=== PATIENT | female | born 1990 | race Caucasian/White ===

== ENCOUNTER 2018-10-08 09:57 | Observation (INO) | payer OTHER ==
[2018-10-08] MEDS ORDERED: SODIUM CHLORIDE 0.9% 2,000 ML IV STA (10:34)
[2018-10-08] MEDS ORDERED: ONDANSETRON 4 MG/2 ML VIAL IVP STA (10:34)
[2018-10-08] MEDS ORDERED: KETOROLAC 30 MG/ML 1 ML VIAL IVP STA (10:34)
[2018-10-08] MEDS ORDERED: ACETAMINOPHEN TAB 325 MG TAB PO STA (10:36)
--- NOTE | 2018-10-08 10:40 | ED ---
General Adult HPI <Mathew Patricio - Last Filed: 10/08/18 14:03> - General Source: patient, RN notes reviewed Mode of arrival: ambulatory Limitations: no limitations <Manohar Fuentes - Last Filed: 10/08/18 14:20> - General Chief complaint: Urogenital Stated complaint: urinary problem, poss flu Time Seen by Provider: 10/08/18 10:27 - History of Present Illness Initial comments: 28 show female presents emergency Department chief complaint of abdominal pain, fever, dysuria, body aches. Patient states she just does not feel well. Patient's concerned that she contracted influenza secondary to being at [facility] with her daughter for last 4 days. Patient states that she has a mild cough but from recommends a fever nausea vomiting and body aches. Patient states she has urinary frequency and dysuria and mild back pain. Patient had prior pyelonephritis. Patient denies any chance denies any vaginal bleeding or vaginal discharge. Patient is unable take recent Tylenol Motrin secondary to nausea. (Manohar Fuentes) - Related Data Home Medications Medication Instructions Recorded Confirmed No Known Home Medications 02/27/16 10/08/18 Allergies Allergy/AdvReac Type Severity Reaction Status Date / Time No Known Allergies Allergy Verified 10/08/18 10:46 Review of Systems ROS Other: All systems not noted in ROS Statement are negative. <Mathew Patricio - Last Filed: 10/08/18 14:03> ROS Other: All systems not noted in ROS Statement are negative. <Manohar Fuentes - Last Filed: 10/08/18 14:20> ROS Statement: Those systems with pertinent positive or pertinent negative responses have been documented in the HPI. 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 History of Any Multi-Drug Resistant Organisms: None Reported Past Surgical History: No Surgical Hx Reported Past Anesthesia/Blood Transfusion Reactions: No Reported Reaction Past Psychological History: No Psychological Hx Reported Smoking Status: Current every day smoker Past Alcohol Use History: None Reported Past Drug Use History: None Reported - Past Family History Father Family Medical History: No Reported History <Manohar Fuentes - Last Filed: 10/08/18 14:20> General Exam Limitations: no limitations General appearance: alert, in no apparent distress Head exam: Present: atraumatic, normocephalic, normal inspection Eye exam: Present: normal appearance, PERRL, EOMI. Absent: scleral icterus, conjunctival injection, periorbital swelling ENT exam: Present: normal exam, normal oropharynx, mucous membranes moist Neck exam: Present: normal inspection. Absent: tenderness, meningismus, lymphadenopathy Respiratory exam: Present: normal lung sounds bilaterally. Absent: respiratory distress, wheezes, rales, rhonchi, stridor Cardiovascular Exam: Present: normal rhythm, tachycardia, normal heart sounds. Absent: systolic murmur, diastolic murmur, rubs, gallop, clicks GI/Abdominal exam: Present: soft, tenderness, normal bowel sounds. Absent: distended, guarding, rebound, rigid Back exam: Present: CVA tenderness (R). Absent: CVA tenderness (L) <Manohar Fuentes - Last Filed: 10/08/18 14:20> Course Vital Signs 10/08/18 10/08/18 10/08/18 10:07 12:48 14:16 Temperature 101.9 F H 98.4 F Pulse Rate 113 H 75 Respiratory 18 20 Rate Blood Pressure 100/52 113/64 O2 Sat by Pulse 98 99 Oximetry Medical Decision Making - Lab Data Result diagrams: 10/08/18 10:48 10/08/18 10:48 <Mathew Patricio - Last Filed: 10/08/18 14:03> - Lab Data Result diagrams: 10/08/18 10:48 10/08/18 10:48 <Manohar Fuentes - Last Filed: 10/08/18 14:20> - Medical Decision Making Case was discussed with PA. Chart was reviewed. Case was discussed with Dr. Campbell, who will admit his patient (Mathew Patricio) 28-year-old female presented for abdominal pain nausea vomiting fever. Patient's found to have pyelonephritis on CT., Patient also has influenza A w ill be started on Tamiflu, Rocephin. (Manohar Fuentes) - Lab Data Lab Results 10/08/18 10/08/18 10/08/18 Range/Units 10:48 10:48 10:48 WBC 16.5 H (3.8-10.6) k/uL RBC 4.31 (3.80-5.40) m/uL Hgb 13.4 (11.4-16.0) gm/dL Hct 39.1 (34.0-46.0) % MCV 90.6 (80.0-100.0) fL MCH 31.0 (25.0-35.0) pg MCHC 34.3 (31.0-37.0) g/dL RDW 12.1 (11.5-15.5) % Plt Count 255 (150-450) k/uL Neutrophils % 82 % Lymphocytes % 9 % Monocytes % 8 % Eosinophils % 1 % Basophils % 0 % Neutrophils # 13.5 H (1.3-7.7) k/uL Lymphocytes # 1.4 (1.0-4.8) k/uL Monocytes # 1.3 H (0-1.0) k/uL Eosinophils # 0.1 (0-0.7) k/uL Basophils # 0.0 (0-0.2) k/uL Sodium 137 (137-145) mmol/L Potassium 3.6 (3.5-5.1) mmol/L Chloride 102 (98-107) mmol/L Carbon Dioxide 24 (22-30) mmol/L Anion Gap 11 mmol/L BUN 12 (7-17) mg/dL Creatinine 0.56 (0.52-1.04) mg/dL Est GFR (CKD-EPI)AfAm >90 (>60 ml/min/1.73 sqM) Est GFR (CKD-EPI)NonAf >90 (>60 ml/min/1.73 sqM) Glucose 105 H (74-99) mg/dL Plasma Lactic Acid Carter (0.7-2.0) mmol/L Calcium 9.0 (8.4-10.2) mg/dL Total Bilirubin 1.3 (0.2-1.3) mg/dL AST 23 (14-36) U/L ALT 25 (9-52) U/L Alkaline Phosphatase 60 (38-126) U/L Total Protein 7.3 (6.3-8.2) g/dL Albumin 4.2 (3.5-5.0) g/dL Lipase 31 (23-300) U/L Urine Color Urine Appearance (Clear) Urine pH (5.0-8.0) Ur Specific [place] (1.001-1.035) Urine Protein (Negative) Urine Glucose (UA) (Negative) Urine Ketones (Negative) Urine Blood (Negative) Urine Nitrite (Negative) Urine Bilirubin (Negative) Urine Urobilinogen (<2.0) mg/dL Ur Leukocyte Esterase (Negative) Urine RBC (0-5) /hpf Urine WBC (0-5) /hpf Ur Squamous Epith Cells (0-4) /hpf Urine Bacteria (None) /hpf Urine Mucus (None) /hpf Urine HCG, Qual Not Detected (Not Detectd) Influenza Type A RNA (Not Detectd) Influenza Type B (PCR) (Not Detectd) 10/08/18 10/08/18 10/08/18 Range/Units 10:48 10:48 12:05 WBC (3.8-10.6) k/uL RBC (3.80-5.40) m/uL Hgb (11.4-16.0) gm/dL Hct (34.0-46.0) % MCV (80.0-100.0) fL MCH (25.0-35.0) pg MCHC (31.0-37.0) g/dL RDW (11.5-15.5) % Plt Count (150-450) k/uL Neutrophils % % Lymphocytes % % Monocytes % % Eosinophils % % Basophils % % Neutrophils # (1.3-7.7) k/uL Lymphocytes # (1.0-4.8) k/uL Monocytes # (0-1.0) k/uL Eosinophils # (0-0.7) k/uL Basophils # (0-0.2) k/uL Sodium (137-145) mmol/L Potassium (3.5-5.1) mmol/L Chloride (98-107) mmol/L Carbon Dioxide (22-30) mmol/L Anion Gap mmol/L BUN (7-17) mg/dL Creatinine (0.52-1.04) mg/dL Est GFR (CKD-EPI)AfAm (>60 ml/min/1.73 sqM) Est GFR (CKD-EPI)NonAf (>60 ml/min/1.73 sqM) Glucose (74-99) mg/dL Plasma Lactic Acid Carter 1.0 (0.7-2.0) mmol/L Calcium (8.4-10.2) mg/dL Total Bilirubin (0.2-1.3) mg/dL AST (14-36) U/L ALT (9-52) U/L Alkaline Phosphatase (38-126) U/L Total Protein (6.3-8.2) g/dL Albumin (3.5-5.0) g/dL Lipase (23-300) U/L Urine Color Yellow Urine Appearance Cloudy H (Clear) Urine pH 6.0 (5.0-8.0) Ur Specific [place] 1.023 (1.001-1.035) Urine Protein 1+ H (Negative) Urine Glucose (UA) Negative (Negative) Urine Ketones 3+ H (Negative) Urine Blood Moderate H (Negative) Urine Nitrite Negative (Negative) Urine Bilirubin Negative (Negative) Urine Urobilinogen 2.0 (<2.0) mg/dL Ur Leukocyte Esterase Moderate H (Negative) Urine RBC 8 H (0-5) /hpf Urine WBC 15 H (0-5) /hpf Ur Squamous Epith Cells 14 H (0-4) /hpf Urine Bacteria Few H (None) /hpf Urine Mucus Many H (None) /hpf Urine HCG, Qual (Not Detectd) Influenza Type A RNA Detected H (Not Detectd) Influenza Type B (PCR) Not Detected (Not Detectd) Disposition <Mathew Patricio - Last Filed: 10/08/18 14:03> <Manohar Fuentes - Last Filed: 10/08/18 14:20> Clinical Impression: Pyelonephritis, Influenza Disposition: ADMITTED IP TO THIS HOSP Condition: Fair
[2018-10-08 11:31] LABS: Basophils % (A) 0 %; Eosinophils # (A) 0.1 k/uL (0-0.7); Eosinophils % (A) 1 %; HCT 39.1 % (34.0-46.0); HGB 13.4 gm/dL (11.4-16.0); Lymphocytes # (A) 1.4 k/uL (1.0-4.8); Lymphocytes % (A) 9 %; MCHC 34.3 g/dL (31.0-37.0); MCV 90.6 fL (80.0-100.0); Mean Platelet Volume 6.4; Monocytes # (A) 1.3 k/uL (0-1.0); Monocytes % (A) 8 %; Neutrophils # (A) 13.5 k/uL (1.3-7.7); Neutrophils % (A) 82 %; Platelet Count 255 k/uL (150-450); RBC 4.31 m/uL (3.80-5.40); RDW 12.1 % (11.5-15.5); WBC 16.5 k/uL (3.8-10.6)
[2018-10-08 11:56] LABS: ALT 25 U/L (9-52); AST 23 U/L (14-36); Albumin 4.2 g/dL (3.5-5.0); Alkaline Phosphatase 60 U/L (38-126); Anion Gap 11 mmol/L; Blood Urea Nitrogen 12 mg/dL (7-17); Carbon Dioxide 24 mmol/L (22-30); Chloride 102 mmol/L (98-107); Glucose 105 mg/dL (74-99); Lipase 31 U/L (23-300); Potassium 3.6 mmol/L (3.5-5.1); Sodium 137 mmol/L (137-145); Total Bilirubin 1.3 mg/dL (0.2-1.3); Total Protein 7.3 g/dL (6.3-8.2)
[2018-10-08 11:57] LABS: Appearance,Urine Cloudy (Clear); Bacteria,Urine Few /hpf; Bilirubin,Urine Negative (Negative); Blood,Urine Moderate (Negative); Color,Urine Yellow; Glucose,Urine (UA) Negative (Negative); Ketones,Urine 3+ (Negative); Leukocyte Esterase,Urine Moderate (Negative); Mucus,Urine Many /hpf; Nitrite,Urine Negative (Negative); Protein,Urine 1+ (Negative); RBC,Urine 8 /hpf (0-5); Specific Gravity,Urine 1.023 (1.001-1.035); Squamous Epithelial Cell,Urine 14 /hpf (0-4)
--- NOTE | 2018-10-08 12:46 | CT ---
EXAMINATION TYPE: CT abdomen pelvis w con DATE OF EXAM: 10/08/2018 HISTORY: painful urination, fever CT DLP: 859.2mGycm Automated Exposure Control for Dose Reduction was Utilized. CONTRAST: CT scan of the abdomen and pelvis is performed without oral but with IV Contrast, patient injected wi th 100 mL of Isovue 300. COMPARISON: None. FINDINGS: LUNG BASES: No significant abnormality is appreciated. LIVER/GB: No significant abnormality is appreciated. PANCREAS: No significant abnormality is seen. SPLEEN: Splenomegaly measuring 13.9 cm long axis coronal image 43 is noted. ADRENALS: No significant abnormality is seen. KIDNEYS: There is symmetric cortical medullary uptake and excretion from both kidneys without hydrone phrosis identified bilaterally. There is fullness of left renal pelvis without calyceal dilatation choudhury ggesting extrarenal pelvis there are a few wedge-shaped areas of nonenhancement for reference anterio rly lower pole level delayed axial image 43 and anterior medially upper to mid pole level axial image 29 also posterior laterally upper to mid pole level axial image 33. Findings are consistent with mul tifocal areas of pyelonephritis involving the left kidney. No suspicious nonenhanced numerous striati ons in the right kidney are present. Bladder is poorly distended without suspicious wall thickening. 2 mm calcific focus axial image 89 is presumed between bladder and and vagina, intraluminal bladder c alculus felt less likely. There are few scattered pelvic phleboliths noted. BOWEL: Incidental normal-appearing appendix from cecum in the right upper pelvis. UTERUS/ADNEXA: Anteverted uterus is seen. LYMPH NODES: No greater than 1cm abdominal or pelvic lymph nodes are appreciated. OSSEOUS STRUCTURES: No significant abnormality is seen. OTHER: No significant additional abnormality is seen. IMPRESSION: Multifocal left-sided pyelonephritis identified on CT. Splenomegaly also noted.
[2018-10-08] MEDS ORDERED: OSELTAMIVIR 75 MG CAP PO STA (13:15)
[2018-10-08] MEDS ORDERED: NALOXONE 0.4 MG/ML 1 ML VIAL IV PRN (13:16)
[2018-10-08] MEDS: SODIUM CHLORIDE 0.9% 1,000 ML IV SCH ×2 (14:08→21:36)
[2018-10-08 15:28] VITALS: BMI 28.3
[2018-10-08] MEDS: KETOROLAC 30 MG/ML 1 ML VIAL IVP PRN ×2 (17:23→23:16)
[2018-10-08] MEDS: FAMOTIDINE 20 MG TAB PO SCH (17:58)
[2018-10-08] MEDS: OSELTAMIVIR 75 MG CAP PO SCH (20:48)
[2018-10-09] MEDS: FAMOTIDINE 20 MG TAB PO SCH ×2 (07:32→20:46)
[2018-10-09] MEDS: OSELTAMIVIR 75 MG CAP PO SCH ×2 (09:29→21:27)
[2018-10-09] MEDS: SODIUM CHLORIDE 0.9% 1,000 ML IV SCH ×2 (10:49→19:31)
[2018-10-09] MEDS ORDERED: LEVOFLOXACIN 500 MG TAB PO SCH (13:00)
[2018-10-09] MEDS: ACETAMINOPHEN TAB 325 MG TAB PO PRN ×2 (14:09→20:46)
[2018-10-09] MEDS: KETOROLAC 30 MG/ML 1 ML VIAL IVP PRN (18:20)
[2018-10-09 20:32] VITALS: RESP 16
[2018-10-10 01:27] VITALS: PULSE 83
[2018-10-10] MEDS: SODIUM CHLORIDE 0.9% 1,000 ML IV SCH (03:10)
[2018-10-10] MEDS: OSELTAMIVIR 75 MG CAP PO SCH (07:08)
[2018-10-10] MEDS: FAMOTIDINE 20 MG TAB PO SCH (07:08)
[2018-10-10 07:24] VITALS: BP 110/72; TEMP 98.1
--- NOTE | 2018-10-10 21:41 | HP ---
HISTORY AND PHYSICAL CHIEF COMPLAINT: Flank pain. HISTORY OF PRESENT ILLNESS: This 28-year-old white female came to the emergency room for the first time with a history of flank pain and was diagnosed as having pyelonephritis. She also was positive for flu. REVIEW OF SYSTEMS: She has had no nausea, vomiting, chest pain, murmurs, fever, abdominal pain, melena, hematochezia, diabetes, etc. Past medical history, family history, personal and social histories were otherwise all unremarkable and noncontributory. On physical exam, she did have a temperature of a 100.4, blood pressure is 110/68 with a pulse of 90, respirations of 34, and she is afebrile. In general, she appeared to be well developed, well nourished and slightly overweight. Skin color is normal. Skin is warm, dry. Lymph nodes not enlarged. Head, ears, eyes, nose, mouth, and throat were normal. Neck veins not distended. Thyroid is not enlarged. Chest is clear. Cardiac exam is normal. Abdomen is soft, nontender. Extremities are normal. She is a little bit tender in the left flank. IMPRESSION: 1. Pyelonephritis. 2. . PLAN: 1. Bed rest. 2. IV fluids. 3. Tamiflu. 4. IV antibiotics. MMODL / IJN: [id number] /
--- NOTE | 2018-10-10 21:56 | PN ---
PROGRESS NOTE DATE OF SERVICE: 10/09/2018. CHIEF COMPLAINT: Pyelonephritis and influenza. HISTORY OF PRESENT ILLNESS: This lady is still having quite a bit of left upper quadrant left flank pain. She has not been nauseated, but she does not have an appetite. PHYSICAL EXAM: Chest is clear. The cardiac exam is normal and she is tender in the left side of the abdomen and in the left flank. IMPRESSION: 1. Persistent pyelonephritis. 2. Influenza. PLAN: Continue with IV fluids and antibiotics and will add Levaquin. She is still running a temp and she is somewhat sweaty. MMODL / IJN: [id number] /
--- NOTE | 2018-10-11 07:51 | DS ---
DISCHARGE SUMMARY CHIEF COMPLAINT: Pyelonephritis and influenza. HISTORY OF PRESENT ILLNESS AND PHYSICAL EXAM: Details of this lady's history and physical can be found in the initial workup. LABORATORY STUDIES: While she was in the hospital, she had laboratory studies, details of which can be found in the laboratory section of her chart. COURSE IN HOSPITAL: After admission, she was placed on bedrest and started on intravenous fluids and IV antibiotics. Temperature came down slowly and she was doing well enough to go home on the . She will go home on usual diet and activity and antibiotics as well as Tamiflu and be seen in the office in a few days. FINAL DIAGNOSIS: 1. Pyelonephritis. 2. Influenza. OPERATIONS: None. CONSULTATION: None. She is improved. MMODL / IJN: [id number] /
== END 2018-10-10 11:48 | disposition home or self-care (01) ==
LOC: EC 09:57 → 4MS4W 14:02 → INTOOBSV 14:02 → 4SSUR 14:05 → UNDODISIN 10-10 11:48
PROVIDERS: ADMIT Family Medicine; ATTEND Family Medicine
DX: N12 Tubulo-interstitial nephritis, not specified as acute or chronic (principal); J10.89 Influenza due to other identified influenza virus with other manifestations; J10.1 Influenza due to other identified influenza virus with other respiratory manifestations; F17.210 Nicotine dependence, cigarettes, uncomplicated; E66.3 Overweight; Z68.28 Body mass index [BMI] 28.0-28.9, adult; Z86.19 Personal history of other infectious and parasitic diseases
CPT/HCPCS: 96376 ×2; 96366 ×3; 96361; 96365; 96375; 99285; 36415; 80053; 83605; 83690; 85025; 81001; 81025; 87040; 87086; 87502; 74177; G0378 ×3; J2405; J0696 ×4; J1885 ×2; Q9967; 96374

== ENCOUNTER 2019-06-20 15:20 | Observation (INO) | payer OTHER ==
[2019-06-20] MEDS ORDERED: SODIUM CHLORIDE 0.9% 1,000 ML IV STA ×2 (15:42→18:45)
[2019-06-20] MEDS ORDERED: KETOROLAC 30 MG/ML 1 ML VIAL IVP STA (15:42)
[2019-06-20] MEDS ORDERED: ONDANSETRON 4 MG/2 ML VIAL IVP STA ×2 (15:42→18:35)
--- NOTE | 2019-06-20 15:45 | ED ---
General Adult HPI - General Chief complaint: Back Pain/Injury Stated complaint: Vomitting/Lower back pain Time Seen by Provider: 06/20/19 15:31 Source: patient, RN notes reviewed Mode of arrival: ambulatory Limitations: no limitations - History of Present Illness Initial comments: 28-year-old female with a past medical history pyelonephritis, HSV presents to the emergency department for a chief complaint of vomiting. Patient states that she began vomiting last night around 9:30. States she has vomited several times since and is now dry heaving as she is not able to keep down fluids. Patient states she has low back pain as well. States this feels like pyelonephritis she has had in the past. She denies abdominal pain. She denies fevers or chills. She does admit to dysuria.Patient has no other complaints at this time including shortness of breath, chest pain, abdominal pain, headache, or visual changes. - Related Data Home Medications Medication Instructions Recorded Confirmed No Known Home Medications 06/20/19 06/20/19 Allergies Allergy/AdvReac Type Severity Reaction Status Date / Time No Known Allergies Allergy Verified 06/20/19 19:26 Review of Systems ROS Statement: Those systems with pertinent positive or pertinent negative responses have been documented in the HPI. ROS Other: All systems not noted in ROS Statement are negative. 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 History of Any Multi-Drug Resistant Organisms: None Reported Past Surgical History: No Surgical Hx Reported Past Anesthesia/Blood Transfusion Reactions: No Reported Reaction Past Psychological History: No Psychological Hx Reported Smoking Status: Current every day smoker Past Alcohol Use History: None Reported Past Drug Use History: None Reported - Past Family History Father Family Medical History: No Reported History Mother Family Medical History: No Reported History General Exam Limitations: no limitations General appearance: alert, in no apparent distress Head exam: Present: atraumatic, normocephalic, normal inspection Eye exam: Present: normal appearance, PERRL, EOMI. Absent: scleral icterus, conjunctival injection, periorbital swelling ENT exam: Present: normal exam, mucous membranes moist Neck exam: Present: normal inspection, full ROM. Absent: tenderness, meningismus, lymphadenopathy Respiratory exam: Present: normal lung sounds bilaterally. Absent: respiratory distress, wheezes, rales, rhonchi, stridor Cardiovascular Exam: Present: regular rate, normal rhythm, normal heart sounds. Absent: systolic murmur, diastolic murmur, rubs, gallop, clicks GI/Abdominal exam: Present: soft, normal bowel sounds. Absent: distended, tenderness, guarding, rebound, rigid External exam: Present: normal external exam. Absent: erythema, swelling, lacerations, ecchymosis Speculum exam: Present: normal speculum exam, vaginal discharge (small amount of liekly physiologic discharge). Absent: erythema, cervical discharge, vaginal bleeding, foreign body, tissue, laceration By manual exam: Present: normal by manual exam. Absent: cervical motion tenderness (neg chandelier), adnexal tenderness, adnexal mass, uterine enlargement, uterine tenderness Back exam: Absent: CVA tenderness (R), CVA tenderness (L) Course Vital Signs 06/20/19 06/20/19 06/20/19 15:23 18:36 19:55 Temperature 98.9 F 98.9 F Pulse Rate 106 H 102 H 97 Respiratory 18 16 16 Rate Blood Pressure 139/68 114/83 130/74 O2 Sat by Pulse 96 100 100 Oximetry Medical Decision Making - Medical Decision Making Vitals are stable. Patient mildly tachycardic possibly secondary to dehydration. Patient is afebrile. Patient is experiencing low back pain as well as right lower quadrant pain. She is experiencing vomiting as well. She denies diarrhea. She is mildly tender in the right lower quadrant. Pelvic exam is unremarkable. Patient denies IV drug use. CBC shows a white blood cell count of 28. CMP does show a lactic acidosis which could be secondary to dehydration. CMP also shows an anion gap of 21 which is likely secondary to starvation ketosis as she does have evidence of dehydration and 3+ ketones in the urine. Patient was given [address] abdomen and pelvis shows a correlate for enteritis with some wall thickening in the small bowel loops. This could possibly be cause of patient's pain. However patient continues to experience pain after multiple analgesics. She is also nauseous after Zofran. Given intractable pain as well as leukocytosis and lactic acidosis patient will be admitted for further monitoring. Trichomonas, gonorrhea, chlamydia pending. Case was discussed with Dr Campbell who accepted this admission - Lab Data Result diagrams: 06/20/19 15:55 06/20/19 15:55 Lab Results 06/20/19 06/20/19 06/20/19 Range/Units 15:35 15:35 15:55 WBC (3.8-10.6) k/uL RBC (3.80-5.40) m/uL Hgb (11.4-16.0) gm/dL Hct (34.0-46.0) % MCV (80.0-100.0) fL MCH (25.0-35.0) pg MCHC (31.0-37.0) g/dL RDW (11.5-15.5) % Plt Count (150-450) k/uL Neutrophils % % Lymphocytes % % Monocytes % % Eosinophils % % Basophils % % Neutrophils # (1.3-7.7) k/uL Lymphocytes # (1.0-4.8) k/uL Monocytes # (0-1.0) k/uL Eosinophils # (0-0.7) k/uL Basophils # (0-0.2) k/uL Manual Slide Review RBC Morphology Sodium 141 (137-145) mmol/L Potassium 5.0 (3.5-5.1) mmol/L Chloride 104 (98-107) mmol/L Carbon Dioxide 16 L (22-30) mmol/L Anion Gap 21 mmol/L BUN 17 (7-17) mg/dL Creatinine 0.78 (0.52-1.04) mg/dL Est GFR (CKD-EPI)AfAm >90 (>60 ml/min/1.73 sqM) Est GFR (CKD-EPI)NonAf >90 (>60 ml/min/1.73 sqM) Glucose 111 H (74-99) mg/dL Lactic Ac Sepsis Rflx Plasma Lactic Acid Carter (0.7-2.0) mmol/L Calcium 10.1 (8.4-10.2) mg/dL Total Bilirubin 1.7 H (0.2-1.3) mg/dL AST 43 H (14-36) U/L ALT 21 (4-34) U/L Alkaline Phosphatase 88 (38-126) U/L Total Protein 9.0 H (6.3-8.2) g/dL Albumin 5.2 H (3.5-5.0) g/dL Amylase 60 (30-110) U/L Lipase 18 L (23-300) U/L Urine Color Yellow Urine Appearance Clear (Clear) Urine pH 5.0 (5.0-8.0) Ur Specific [place] 1.020 (1.001-1.035) Urine Protein Trace H (Negative) Urine Glucose (UA) Negative (Negative) Urine Ketones 3+ H (Negative) Urine Blood Trace H (Negative) Urine Nitrite Negative (Negative) Urine Bilirubin Negative (Negative) Urine Urobilinogen <2.0 (<2.0) mg/dL Ur Leukocyte Esterase Negative (Negative) Urine RBC <1 (0-5) /hpf Urine WBC <1 (0-5) /hpf Ur Squamous Epith Cells 1 (0-4) /hpf Hyaline Casts 1 (0-2) /lpf Urine Mucus Rare H (None) /hpf Urine HCG, Qual Not Detected (Not Detectd) Trichomonas Ag (Rapid) (Negative) 06/20/19 06/20/19 06/20/19 Range/Units 15:55 15:55 17:13 WBC 28.0 H (3.8-10.6) k/uL RBC 4.81 (3.80-5.40) m/uL Hgb 15.6 (11.4-16.0) gm/dL Hct 44.2 (34.0-46.0) % MCV 91.9 (80.0-100.0) fL MCH 32.3 (25.0-35.0) pg MCHC 35.2 (31.0-37.0) g/dL RDW 11.9 (11.5-15.5) % Plt Count 386 (150-450) k/uL Neutrophils % 92 % Lymphocytes % 4 % Monocytes % 2 % Eosinophils % 1 % Basophils % 0 % Neutrophils # 25.9 H (1.3-7.7) k/uL Lymphocytes # 1.1 (1.0-4.8) k/uL Monocytes # 0.6 (0-1.0) k/uL Eosinophils # 0.4 (0-0.7) k/uL Basophils # 0.0 (0-0.2) k/uL Manual Slide Review Performed RBC Morphology Normal Sodium (137-145) mmol/L Potassium (3.5-5.1) mmol/L Chloride (98-107) mmol/L Carbon Dioxide (22-30) mmol/L Anion Gap mmol/L BUN (7-17) mg/dL Creatinine (0.52-1.04) mg/dL Est GFR (CKD-EPI)AfAm (>60 ml/min/1.73 sqM) Est GFR (CKD-EPI)NonAf (>60 ml/min/1.73 sqM) Glucose (74-99) mg/dL Lactic Ac Sepsis Rflx Y Plasma Lactic Acid Carter 3.7 H* (0.7-2.0) mmol/L Calcium (8.4-10.2) mg/dL Total Bilirubin (0.2-1.3) mg/dL AST (14-36) U/L ALT (4-34) U/L Alkaline Phosphatase (38-126) U/L Total Protein (6.3-8.2) g/dL Albumin (3.5-5.0) g/dL Amylase (30-110) U/L Lipase (23-300) U/L Urine Color Urine Appearance (Clear) Urine pH (5.0-8.0) Ur Specific [place] (1.001-1.035) Urine Protein (Negative) Urine Glucose (UA) (Negative) Urine Ketones (Negative) Urine Blood (Negative) Urine Nitrite (Negative) Urine Bilirubin (Negative) Urine Urobilinogen (<2.0) mg/dL Ur Leukocyte Esterase (Negative) Urine RBC (0-5) /hpf Urine WBC (0-5) /hpf Ur Squamous Epith Cells (0-4) /hpf Hyaline Casts (0-2) /lpf Urine Mucus (None) /hpf Urine HCG, Qual (Not Detectd) Trichomonas Ag (Rapid) (Negative) 06/20/19 Range/Units 18:50 WBC (3.8-10.6) k/uL RBC (3.80-5.40) m/uL Hgb (11.4-16.0) gm/dL Hct (34.0-46.0) % MCV (80.0-100.0) fL MCH (25.0-35.0) pg MCHC (31.0-37.0) g/dL RDW (11.5-15.5) % Plt Count (150-450) k/uL Neutrophils % % Lymphocytes % % Monocytes % % Eosinophils % % Basophils % % Neutrophils # (1.3-7.7) k/uL Lymphocytes # (1.0-4.8) k/uL Monocytes # (0-1.0) k/uL Eosinophils # (0-0.7) k/uL Basophils # (0-0.2) k/uL Manual Slide Review RBC Morphology Sodium (137-145) mmol/L Potassium (3.5-5.1) mmol/L Chloride (98-107) mmol/L Carbon Dioxide (22-30) mmol/L Anion Gap mmol/L BUN (7-17) mg/dL Creatinine (0.52-1.04) mg/dL Est GFR (CKD-EPI)AfAm (>60 ml/min/1.73 sqM) Est GFR (CKD-EPI)NonAf (>60 ml/min/1.73 sqM) Glucose (74-99) mg/dL Lactic Ac Sepsis Rflx Plasma Lactic Acid Carter (0.7-2.0) mmol/L Calcium (8.4-10.2) mg/dL Total Bilirubin (0.2-1.3) mg/dL AST (14-36) U/L ALT (4-34) U/L Alkaline Phosphatase (38-126) U/L Total Protein (6.3-8.2) g/dL Albumin (3.5-5.0) g/dL Amylase (30-110) U/L Lipase (23-300) U/L Urine Color Urine Appearance (Clear) Urine pH (5.0-8.0) Ur Specific [place] (1.001-1.035) Urine Protein (Negative) Urine Glucose (UA) (Negative) Urine Ketones (Negative) Urine Blood (Negative) Urine Nitrite (Negative) Urine Bilirubin (Negative) Urine Urobilinogen (<2.0) mg/dL Ur Leukocyte Esterase (Negative) Urine RBC (0-5) /hpf Urine WBC (0-5) /hpf Ur Squamous Epith Cells (0-4) /hpf Hyaline Casts (0-2) /lpf Urine Mucus (None) /hpf Urine HCG, Qual (Not Detectd) Trichomonas Ag (Rapid) Negative (Negative) Disposition Clinical Impression: Leukocytosis, Back pain, Vomiting Disposition: ADMITTED IP TO THIS [facility] Condition: Fair Is patient prescribed a controlled substance at d/c from ED?: No Time of Disposition: 19:17
[2019-06-20 15:55] LABS: Appearance,Urine Clear (Clear); Bilirubin,Urine Negative (Negative); Blood,Urine Trace (Negative); Color,Urine Yellow; Glucose,Urine (UA) Negative (Negative); Hyaline Casts,Urine 1 /lpf (0-2); Ketones,Urine 3+ (Negative); Leukocyte Esterase,Urine Negative (Negative); Mucus,Urine Rare /hpf; Nitrite,Urine Negative (Negative); Protein,Urine Trace (Negative); RBC,Urine <1 /hpf (0-5); Squamous Epithelial Cell,Urine 1 /hpf (0-4); Urobilinogen,Urine <2.0 mg/dL (<2.0); WBC,Urine <1 /hpf (0-5)
[2019-06-20 16:22] LABS: Basophils % (A) 0 %; Eosinophils # (A) 0.4 k/uL (0-0.7); Eosinophils % (A) 1 %; HCT 44.2 % (34.0-46.0); HGB 15.6 gm/dL (11.4-16.0); Lymphocytes # (A) 1.1 k/uL (1.0-4.8); Lymphocytes % (A) 4 %; MCH 32.3 pg (25.0-35.0); MCHC 35.2 g/dL (31.0-37.0); MCV 91.9 fL (80.0-100.0); Mean Platelet Volume 8.1; Monocytes # (A) 0.6 k/uL (0-1.0); Monocytes % (A) 2 %; Neutrophils # (A) 25.9 k/uL (1.3-7.7); Neutrophils % (A) 92 %; Platelet Count 386 k/uL (150-450); RBC 4.81 m/uL (3.80-5.40); RDW 11.9 % (11.5-15.5)
[2019-06-20 16:43] LABS: ALT 21 U/L (4-34); AST 43 U/L (14-36); African American GFR (CKD) >90 (>60 ml/min/1.73 sqM); Albumin 5.2 g/dL (3.5-5.0); Alkaline Phosphatase 88 U/L (38-126); Amylase 60 U/L (30-110); Anion Gap 21 mmol/L; Blood Urea Nitrogen 17 mg/dL (7-17); Calcium 10.1 mg/dL (8.4-10.2); Carbon Dioxide 16 mmol/L (22-30); Chloride 104 mmol/L (98-107); Glucose 111 mg/dL (74-99); Non-African American GFR(CKD) >90 (>60 ml/min/1.73 sqM); Sodium 141 mmol/L (137-145); Total Bilirubin 1.7 mg/dL (0.2-1.3)
--- NOTE | 2019-06-20 17:51 | XR ---
EXAMINATION TYPE: XR chest 2V DATE OF EXAM: 06/20/2019 COMPARISON: NONE HISTORY: Leukocytosis, pain and vomiting TECHNIQUE: Frontal and lateral views of the chest are obtained. FINDINGS: There is no focal air space opacity, pleural effusion, or pneumothorax seen. The cardiac silhouette size is within normal limits. The osseous structures are intact. IMPRESSION: No acute cardiopulmonary process.
[2019-06-20] MEDS ORDERED: MORPHINE SULFATE 4 MG/ML SYRINGE IVP STA (18:35)
--- NOTE | 2019-06-20 18:39 | CT ---
EXAMINATION TYPE: CT abdomen pelvis w con DATE OF EXAM: 06/20/2019 COMPARISON: CT 10/08/2018 HISTORY: Nausea, vomiting, and right lower quadrant abdominal pain. CT DLP: 830.5 mGycm Automated exposure control for dose reduction was used. TECHNIQUE: Helical acquisition of images from the lung bases through the pelvis have been completed. CONTRAST: Performed without Oral Contrast and with IV Contrast, patient injected with 100ml mL of Isovue 300. FINDINGS: Small umbilical hernia contains fat. LUNG BASES: No significant abnormality is appreciated. AORTA: No significant abnormality is appreciated. LIVER/GB: Liver shows low attenuation likely due to hepatic steatosis, gallbladder are unremarkable. PANCREAS: No significant abnormality is seen. SPLEEN: No significant abnormality is seen. ADRENALS: No significant abnormality is seen. KIDNEYS: No significant abnormality is seen. REPRODUCTIVE ORGANS: No significant abnormality is seen BOWEL: Small bowel loops show some wall thickening. No evident appendicitis. FREE AIR: No Free Air visible. ASCITES: None visible. PELVIC ADENOPATHY: None visualized. RETROPERITONEAL ADENOPATHY: No Retroperitoneal Adenopathy visible. URINARY BLADDER: No significant abnormality is seen. OSSEOUS STRUCTURES: No significant abnormality is seen. IMPRESSION: CORRELATE FOR ENTERITIS.
[2019-06-20] MEDS ORDERED: cefTRIAXone IN SWFI 1,000 MG/10 ML SYRINGE IVP STA (19:03)
[2019-06-20] MEDS ORDERED: NALOXONE 0.4 MG/ML 1 ML VIAL IV PRN (19:05)
[2019-06-20] MEDS ORDERED: FAMOTIDINE 20 MG/2 ML VIAL IV STA (20:42)
[2019-06-20] MEDS: SODIUM CHLORIDE 0.9% 1,000 ML IV SCH (20:46)
[2019-06-20] MEDS: MORPHINE SULFATE 4 MG/ML SYRINGE IVP PRN (21:14)
[2019-06-21] MEDS: KETOROLAC 30 MG/ML 1 ML VIAL IVP PRN ×2 (00:54→16:55)
[2019-06-21] MEDS: MORPHINE SULFATE 4 MG/ML SYRINGE IVP PRN ×4 (02:01→19:22)
[2019-06-21] MEDS: SODIUM CHLORIDE 0.9% 1,000 ML IV SCH ×3 (03:16→20:28)
[2019-06-21] MEDS: ONDANSETRON 4 MG/2 ML VIAL IVP PRN ×2 (07:50→19:22)
[2019-06-21] MEDS: BENZOCAINE/MENTHOL LOZENG 1 EACH LOZENGE MUCOUS MEM PRN ×3 (09:43→16:55)
--- NOTE | 2019-06-21 16:45 | PN ---
PROGRESS NOTE DATE OF SERVICE: 06/21/2019 CHIEF COMPLAINT: Abdominal pain. HISTORY OF PRESENT ILLNESS: This lady is doing better. Pain is subsiding. She has had no vomiting. PHYSICAL EXAMINATION: Chest is clear. Cardiac exam is normal. Abdomen is soft and nontender without masses. Flanks are nontender. IMPRESSION: Abdominal and back pain with leukocytosis. PLAN: Continue with IV fluids and antibiotics and continue monitoring her symptoms. MMODL / IJN: [id number] /
--- NOTE | 2019-06-21 16:45 | HP ---
HISTORY AND PHYSICAL . CHIEF COMPLAINT: Abdominal pain with vomiting and low back pain. HISTORY OF PRESENT ILLNESS: This is the first known admission for this 28-year-old white female. She has a history of frequent urinary tract infections. About a day or so before coming to the emergency room, she developed fairly sudden onset of abdominal pain and severe low back pain. She had no frequency, urgency, dysuria, hematuria, incontinence, etc. She grew steadily worse and then developed nausea and vomiting and generalized weakness. She vomited numerous times and forcefully which resulted in some anterior chest discomfort as well. She came to the [place] [id number] Urine was unremarkable. REVIEW OF SYSTEMS: She has had no headache, neurologic problems, difficulty with vision or hearing, sore throat, runny nose, shortness of breath, cough, hemoptysis, hematemesis, melena, hematochezia, jaundice, history of renal failure, diabetes, etc. Past medical history, family history personal and social histories reveals she is not allergic to any medication. She is not taking any medications and she has had no surgery. She does not smoke. PHYSICAL EXAMINATION: Blood pressure is 106/84 with a pulse of 93, respirations of 35, temperature 99. In general, she appeared to be slightly overweight and in no acute distress. Skin color is normal. Skin is warm, dry. Lymph nodes not enlarged. Head, ears, eyes, nose, and throat were normal. Neck veins not distended. Thyroid is not enlarged. Chest is clear to auscultation and percussion. Cardiac exam demonstrates normal sinus rhythm and no murmurs or extra sounds. The abdomen is slightly protuberant, soft and not particularly tender and there do not seem to be any masses or visceromegaly. The flanks nontender. Her pain is down over the sacrum. There is no rash or abnormality though. Extremities: Normal. Neurologically she is intact. IMPRESSION: She is admitted to the hospital with diagnoses of: 1. Leukocytosis with intractable vomiting, low back pain. 2. ? cystitis. 3. ? other intraabdominal process. PLAN: 1. Bed rest. 2. IV fluids. 3. Cultures. 4. IV antibiotics. 5. Analgesics. MMODL / IJN: [id number] /
[2019-06-21] MEDS: diphenhydrAMINE 25 MG CAP PO PRN ×2 (17:13→22:19)
[2019-06-21 17:32] LABS: Basophils % (A) 0 %; Eosinophils # (A) 0.1 k/uL (0-0.7); Eosinophils % (A) 0 %; HCT 36.9 % (34.0-46.0); Lymphocytes # (A) 2.1 k/uL (1.0-4.8); Lymphocytes % (A) 13 %; MCH 31.5 pg (25.0-35.0); MCHC 34.1 g/dL (31.0-37.0); MCV 92.3 fL (80.0-100.0); Mean Platelet Volume 6.7; Monocytes # (A) 0.6 k/uL (0-1.0); Monocytes % (A) 4 %; Neutrophils % (A) 82 %; Platelet Count 285 k/uL (150-450); RDW 11.8 % (11.5-15.5); WBC 15.9 k/uL (3.8-10.6)
[2019-06-21 17:36] LABS: HGB 12.6 gm/dL (11.4-16.0)
[2019-06-21] MEDS ORDERED: LEVOFLOXACIN 750MG-D5W PMX 750 MG in DEXTROSE/WATER 1 150ML.BAG IVPB SCH (21:00)
[2019-06-22] MEDS: MORPHINE SULFATE 4 MG/ML SYRINGE IVP PRN ×2 (01:48→06:52)
[2019-06-22] MEDS: SODIUM CHLORIDE 0.9% 1,000 ML IV SCH ×2 (05:56→06:56)
[2019-06-22 07:55] VITALS: BP 147/94; PULSE 77; RESP 16; TEMP 98.4
[2019-06-22] MEDS ORDERED: LEVOFLOXACIN 500 MG TAB PO STA (10:02)
[2019-06-22 12:26] LABS: C. trachomatis,PCR Negative (Neg,Equiv); Chlamydia trachomatis Source Urine
[2019-06-22 12:28] LABS: N. gonorrhoeae,PCR Negative (Neg,Equiv); Neisseria Source Urine
[2019-06-23] MEDS ORDERED: LEVOFLOXACIN 500 MG TAB PO SCH (09:00)
--- NOTE | 2019-06-24 23:44 | DS ---
DISCHARGE SUMMARY CHIEF COMPLAINT: Abdominal pain. HISTORY OF PRESENT ILLNESS AND PHYSICAL EXAM: Details of details of this lady's history and physical can be found in the initial workup. LABORATORY STUDIES: While she was in the hospital, she had laboratory studies, details of which can be found laboratory section of her chart. COURSE IN HOSPITAL: After admission, she was placed on bedrest, started on intravenous fluids and serial WBCs. Her pain is slowly began to subside. The etiology was never determined. She had no evidence of urinary tract infection or any process involving any viscus or the LS spine. She was anxious to be discharged for the holidays and it was felt that she could go home and she will be discharged on Levaquin. She was instructed that if she gets into difficulty, she will have to come back to the emergency room. Otherwise, she will follow up with us in several days. FINAL DIAGNOSES: Abdominal and back pain with leukocytosis. The etiology unknown. OPERATIONS: None. CONSULTATIONS: None. She is improved. MMODL / IJN: [id number] /
== END 2019-06-22 10:30 | disposition home or self-care (01) ==
LOC: EC 15:20 → 4SSUR 18:59
PROVIDERS: ADMIT Family Medicine; ATTEND Family Medicine
DX: M54.5 Low back pain (principal); R10.31 Right lower quadrant pain; D72.829 Elevated white blood cell count, unspecified; E86.0 Dehydration; E87.2 Acidosis; F17.200 Nicotine dependence, unspecified, uncomplicated; Z87.440 Personal history of urinary (tract) infections
CPT/HCPCS: 96361 ×3; 96365; 96376 ×4; 96375; 99285; 36415; 80053; 82150; 83605; 83690; 85025 ×2; 81001; 81025; 87040; 87808; 87491; 87591; 87086; 71046; 74177; G0378 ×3; J2270 ×3; J2405 ×2; J0696 ×2; J1885 ×2; J1956; Q9967

== ENCOUNTER → 2019-08-05 | Outpatient (CLI) | payer OTHER ==
--- NOTE | 2019-08-05 19:27 | MR ---
EXAMINATION TYPE: MR lumbar spine wo/w con DATE OF EXAM: 08/05/2019 COMPARISON: NONE HISTORY: LBP x 2 mos, no trauma TECHNIQUE: T1 and T2 axial and sagittal images of the lumbar spine are submitted. CONTRAST: 7 mL's of Gadavist FINDINGS: There is no abnormal signal seen within the visualized spinal cord or paraspinal soft tissu es. There are multiple Tarlov cyst involving the sacrum the largest measuring 1.5 cm does cause displ acement of some nerve roots from left to right. At L1-2 there is no degenerative disc disease, disc herniation, canal stenosis, or foraminal encroach ment. At L2-3 there is no degenerative disc disease, disc herniation, canal stenosis, or foraminal encroach ment. At L3-4 there is no degenerative disc disease, disc herniation, canal stenosis, or foraminal encroach ment. At L4-5 there is disc desiccation with focal moderate-sized central disc herniation with moderate eff acement of the thecal sac. Mild hypertrophy of the facets. Neural foramina remain patent. At L5-S1 there is no degenerative disc disease, disc herniation, canal stenosis, or foraminal encroac hment. 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 IMPRESSION: 1. There is a moderate-sized central disc focal herniation L4-L5 with moderate compression of the the leon sac. 2. Multiple sacral Tarlov cysts the largest measuring 1.6 cm does result in some displacement of the S2 level nerve roots from left to right. Correlate clinically.
== END | disposition home or self-care (01) ==
LOC: RADMRIMAIN 17:25
PROVIDERS: ATTEND Family Medicine
DX: M51.26 Other intervertebral disc displacement, lumbar region (principal)
CPT/HCPCS: 72158

== ENCOUNTER 2019-09-12 | Emergency (ER) | payer OTHER | END 2019-09-13 01:09 | disposition home or self-care (01) | CPT/HCPCS: 36415; 80053; 85025; 81001; 81025; 87086; 99285; 96374; 96361; J0696 ==

== ENCOUNTER 2019-11-13 12:49 | Emergency (ER) | payer OTHER ==
[2019-11-13 12:58] VITALS: BP 106/76; PULSE 111; RESP 18; TEMP 98.6
[2019-11-13] MEDS ORDERED: HYDROmorphone 1 MG/ML 1 ML SYRINGE IM STA (13:25)
[2019-11-13] MEDS ORDERED: ACET/COD 300 MG/30 MG STARTER PACK 6 TAB BTL PO STA (13:25)
[2019-11-13] MEDS ORDERED: KETOROLAC 60 MG/2 ML VIAL IM STA (13:25)
[2019-11-13] MEDS ORDERED: ONDANSETRON 4 MG ODT STARTER PACK 2 TAB BTL PO STA (13:25)
--- NOTE | 2019-11-13 13:33 | ED ---
General Adult HPI - General Chief complaint: Back Pain/Injury Stated complaint: Back pain Time Seen by Provider: 11/13/19 13:04 Source: patient, RN notes reviewed Mode of arrival: ambulatory Limitations: no limitations - History of Present Illness Initial comments: Patient is a pleasant 29-year-old female presenting to the emergency Department with complaints of left lower back pain. Patient does have history of similar symptoms previously. Patient was lifting her daughter with sudden onset of back pain. Back pain does radiate down to the sciatic region. Discomfort increases with movement. No abdominal pain. No weakness. No loss control of bowel or bladder. No fevers. Patient denies possible . - Related Data Previous Rx's Medication Instructions Recorded Levofloxacin [Levaquin] 500 mg PO ONCE #10 tab 06/22/19 Phenazopyridine [Pyridium] 100 mg PO TID #9 tablet 09/13/19 Sulfamethox-Tmp 800-160Mg [Bactrim 1 tab PO Q12HR #14 tab 09/13/19 DS 800-160 mg] Cyclobenzaprine [Flexeril] 10 mg PO TID PRN #12 tablet 11/13/19 predniSONE [Deltasone] 20 mg PO BID #10 tab 11/13/19 Allergies Allergy/AdvReac Type Severity Reaction Status Date / Time No Known Allergies Allergy Verified 11/13/19 12:58 Review of Systems ROS Statement: Those systems with pertinent positive or pertinent negative responses have been documented in the HPI. ROS Other: All systems not noted in ROS Statement are negative. Constitutional: Denies: fever Eyes: Denies: eye pain ENT: Denies: ear pain Respiratory: Denies: cough Cardiovascular: Denies: chest pain Endocrine: Denies: fatigue Gastrointestinal: Reports: nausea. Denies: abdominal pain Genitourinary: Denies: urgency, dysuria, frequency, hematuria Musculoskeletal: Reports: as per HPI, back pain Skin: Denies: rash Neurological: Denies: weakness 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, freq kidney infections History of Any Multi-Drug Resistant Organisms: None Reported Past Surgical History: No Surgical Hx Reported Past Anesthesia/Blood Transfusion Reactions: No Reported Reaction Past Psychological History: Anxiety Smoking Status: Current some day smoker Past Alcohol Use History: None Reported Past Drug Use History: None Reported - Past Family History Father Family Medical History: No Reported History Mother Family Medical History: No Reported History General Exam Limitations: no limitations General appearance: alert, in no apparent distress Head exam: Present: normocephalic Eye exam: Present: normal appearance Respiratory exam: Present: normal lung sounds bilaterally Cardiovascular Exam: Present: regular rate, normal rhythm Expanded Peripheral pulses: 2+: Dorsalis Pedis (R), Dorsalis Pedis (L) GI/Abdominal exam: Present: soft, normal bowel sounds. Absent: distended, tenderness, guarding, rebound, rigid, pulsatile mass Extremities exam: Present: normal inspection, full ROM. Absent: pedal edema, calf tenderness Back exam: Present: tenderness (left paraLumbar tenderness. No vertebral tenderness. Discomfort with straight leg raise on the left), muscle spasm (L paralumbar). Absent: CVA tenderness (L) Neurological exam: Present: alert. Absent: motor sensory deficit Expanded Motor strength exam: RLE: 5, LLE: 5 Psychiatric exam: Present: normal affect, normal mood Skin exam: Present: normal color Course Vital Signs 11/13/19 12:54 Temperature 98.6 F Pulse Rate 111 H Respiratory 18 Rate Blood Pressure 106/76 O2 Sat by Pulse 97 Oximetry Disposition Clinical Impression: Low back pain Disposition: HOME SELF-CARE Condition: Stable Instructions (If sedation given, give patient instructions): Acute Low Back Pain (ED) Additional Instructions: Please follow-up with primary care physician in the next couple days for recheck. Return for abdominal pain, fevers, leg weakness, loss of control of bowel or bladder, worsening symptoms or any other concerns. Prescription sent to [facility] in [place] Prescriptions: predniSONE [Deltasone] 20 mg PO BID #10 tab Cyclobenzaprine [Flexeril] 10 mg PO TID PRN #12 tablet PRN Reason: Pain Is patient prescribed a controlled substance at d/c from ED?: No Referrals: Christoph Campbell MD [Primary Care Provider] - 1-2 days Time of Disposition: 13:32
== END 2019-11-13 14:20 | disposition home or self-care (01) ==
LOC: EC 12:49
DX: M54.5 Low back pain (principal); M62.830 Muscle spasm of back; F17.200 Nicotine dependence, unspecified, uncomplicated
CPT/HCPCS: 99283; 96372 ×2; J1885; J1170; S0119

== ENCOUNTER 2020-03-26 11:09 | Emergency (ER) | payer OTHER ==
[2020-03-26 11:17] VITALS: TEMP 98.1
[2020-03-26] MEDS ORDERED: SODIUM CHLORIDE 0.9% 500 ML 500 ML IV ONE (11:37)
[2020-03-26] MEDS ORDERED: METOCLOPRAMIDE 5 MG/ML 2 ML VIAL IVP STA (12:17)
[2020-03-26 12:25] LABS: Basophils % (A) 0 %; Eosinophils # (A) 0.1 k/uL (0-0.7); Eosinophils % (A) 1 %; HCT 40.3 % (34.0-46.0); HGB 13.7 gm/dL (11.4-16.0); Lymphocytes # (A) 1.4 k/uL (1.0-4.8); Lymphocytes % (A) 13 %; MCH 31.5 pg (25.0-35.0); MCV 92.8 fL (80.0-100.0); Mean Platelet Volume 6.5; Monocytes # (A) 0.4 k/uL (0-1.0); Monocytes % (A) 3 %; Neutrophils # (A) 8.9 k/uL (1.3-7.7); Neutrophils % (A) 82 %; Platelet Count 306 k/uL (150-450); RBC 4.34 m/uL (3.80-5.40); RDW 12.1 % (11.5-15.5); WBC 10.9 k/uL (3.8-10.6)
[2020-03-26 12:36] LABS: ALT 11 U/L (4-34); AST 16 U/L (14-36); African American GFR (CKD) >90 (>60 ml/min/1.73 sqM); Albumin 4.1 g/dL (3.5-5.0); Alkaline Phosphatase 53 U/L (38-126); Anion Gap 7 mmol/L; Blood Urea Nitrogen 12 mg/dL (7-17); Calcium 9.3 mg/dL (8.4-10.2); Carbon Dioxide 25 mmol/L (22-30); Chloride 103 mmol/L (98-107); Glucose 85 mg/dL (74-99); Non-African American GFR(CKD) >90 (>60 ml/min/1.73 sqM); Potassium 3.8 mmol/L (3.5-5.1); Sodium 135 mmol/L (137-145); Total Bilirubin 0.8 mg/dL (0.2-1.3); Total Protein 7.2 g/dL (6.3-8.2)
[2020-03-26 12:41] LABS: Appearance,Urine Cloudy (Clear); Bacteria,Urine Occasional /hpf; Bilirubin,Urine Negative (Negative); Blood,Urine Negative (Negative); Color,Urine Yellow; Glucose,Urine (UA) Negative (Negative); Ketones,Urine Negative (Negative); Leukocyte Esterase,Urine Large (Negative); Mucus,Urine Many /hpf; Nitrite,Urine Negative (Negative); Protein,Urine 1+ (Negative); RBC,Urine 8 /hpf (0-5); Specific Gravity,Urine 1.024 (1.001-1.035); Squamous Epithelial Cell,Urine 19 /hpf (0-4); WBC,Urine 149 /hpf (0-5)
--- NOTE | 2020-03-26 13:08 | US ---
EXAMINATION TYPE: US OB >= 14 wk fetus DATE OF EXAM: 03/26/2020 COMPARISON: None CLINICAL HISTORY: cramping second trimester . TECHNIQUE: Transabdominal (TA) GESTATIONAL AGE / DATING Dates by LMP: (18weeks/4 days) EDC: 08/23/20 Dates by Current Scan: (18weeks/5 days) EDC: 08/22/20 SURVEY IUP: Single PLACENTA: Anterior PREVIA: No Previa RICARDO: 18.5 cm CERVICAL LENGTH (transabdominal: norm > 3.0cm): 3.2 cm BIOMETRY PRESENTATION: Breech LIE: Transverse with head maternal R BPD: 4.3 cm 19 weeks / 0 days HC: 15.5 cm 18 weeks / 4 days AC: 12.8 cm 18 weeks / 3 days FL: 2.8 cm 18 weeks / 4 days ESTIMATED WEIGHT IN GRAMS: 241 grams ESTIMATED WEIGHT IN LBS/OZ: 0 lbs. 9 oz. WEIGHT PERCENTAGE BASED ON ESTABLISHED DATES: 38% HC/AC: 1.21 FL/AC: 22% HEART RATE: 163 bpm RHYTHM: Normal Single live intrauterine gestation confirmed. Vertex presentation not seen currently. No placenta pre via. Amniotic fluid index calculated within normal limits. No cervical thinning. biometry measu rements congruent and felt within normal limits. IMPRESSION: As above.
[2020-03-26 13:11] VITALS: BP 114/65; PULSE 89; RESP 16
[2020-03-26] MEDS ORDERED: cefTRIAXone IN SWFI 1,000 MG/10 ML SYRINGE IVP STA (13:17)
--- NOTE | 2020-03-26 13:23 | ED ---
Nausea/Vomiting/Diarrhea HPI - General Chief complaint: Nausea/Vomiting/Diarrhea Stated complaint: Vomiting,Cramps, 18wks preg Time Seen by Provider: 03/26/20 11:36 Source: patient Mode of arrival: ambulatory Limitations: no limitations - History of Present Illness Initial comments: A1 29yo year-old female police she is 18wks pregnany LMP November [address] Villa within the next week present to the emergency department today for chief complaint of vomiting 3 days, mild abdominal cramping. Patient states she's had mild lower abdominal cramping she stitches chronic back pain denies any new pain or unilateral pain denies history of kidney stones or hematuria. Patient denies any vaginal bleeding. She denies any severe pain. Patient denies any fevers admits to some fatigue and general malaise. Remaining review of systems negative upon arrival patient is afebrile and nontoxic in appearance she is not currently vomiting. - Related Data Previous Rx's Medication Instructions Recorded Cyclobenzaprine [Flexeril] 10 mg PO TID PRN #12 tablet 11/13/19 predniSONE [Deltasone] 20 mg PO BID #10 tab 11/13/19 Cephalexin [Keflex] 500 mg PO Q6HR 10 Days #40 cap 03/26/20 Allergies Allergy/AdvReac Type Severity Reaction Status Date / Time No Known Allergies Allergy Verified 11/13/19 12:58 Review of Systems ROS Statement: Those systems with pertinent positive or pertinent negative responses have been documented in the HPI. ROS Other: All systems not noted in ROS Statement are negative. 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, freq kidney infections History of Any Multi-Drug Resistant Organisms: None Reported Past Surgical History: No Surgical Hx Reported Past Anesthesia/Blood Transfusion Reactions: No Reported Reaction Past Psychological History: Anxiety Smoking Status: Current every day smoker Past Alcohol Use History: None Reported Past Drug Use History: None Reported - Past Family History Father Family Medical History: No Reported History Mother Family Medical History: No Reported History General Exam - General Exam Comments Initial Comments: General: The patient is awake and alert, in no distress, and does not appear acutely ill. Eye: Pupils are equal, round and reactive to light, extra-ocular movements are intact. No nystagmus. There is normal conjunctiva bilaterally. No signs of icterus. Ears, nose, mouth and throat: There are moist mucous membranes and no oral lesions. Neck: The neck is supple, there is no tenderness or JVD. Cardiovascular: There is a regular rate and rhythm. No murmur, rub or gallop is appreciated. Respiratory: Lungs are clear to auscultation, respirations are non-labored, breath sounds are equal. No wheezes, stridor, rales, or rhonchi. Gastrointestinal: Soft, non-distended, non-tender abdomen without masses or organomegaly noted. There is no rebound or guarding present. No CVA tenderness. Musculoskeletal: Normal ROM, no tenderness. Strength 5/5. Sensation intact. Pulses equal bilaterally 2+. Neurological: A&O x 3. CN II-XII intact grossly, There are no obvious motor or sensory deficits. Coordination appears grossly intact. Speech is normal. Skin: Skin is warm and dry and no rashes or lesions are noted. Psychiatric: Cooperative, appropriate mood & affect, normal judgment. Limitations: no limitations Course Vital Signs 03/26/20 03/26/20 11:14 12:50 Temperature 98.1 F Pulse Rate 78 89 Respiratory 18 16 Rate Blood Pressure 105/71 114/65 O2 Sat by Pulse 100 99 Oximetry Medical Decision Making - Medical Decision Making US WNL. Patient labs stable mild leukocytosis. Patient UA concerning for infection. Dr. Aranda was consulted stating she thinks it is UTI at this point but will treat as out pyleonephritis with keflex 500mgQID x 10 days. Patient will f/u in office next week. Patient and attending are agreeable to this care plan. nausea controlled in ER. REturn parameters including for fevers/back pain persistent vomiting patient verbalized understanding and was discharged appearing well - Lab Data Result diagrams: 03/26/20 12:11 03/26/20 12:11 Lab Results 03/26/20 03/26/20 03/26/20 Range/Units 11:53 12:11 12:11 WBC 10.9 H (3.8-10.6) k/uL RBC 4.34 (3.80-5.40) m/uL Hgb 13.7 (11.4-16.0) gm/dL Hct 40.3 (34.0-46.0) % MCV 92.8 (80.0-100.0) fL MCH 31.5 (25.0-35.0) pg MCHC 34.0 (31.0-37.0) g/dL RDW 12.1 (11.5-15.5) % Plt Count 306 (150-450) k/uL Neutrophils % 82 % Lymphocytes % 13 % Monocytes % 3 % Eosinophils % 1 % Basophils % 0 % Neutrophils # 8.9 H (1.3-7.7) k/uL Lymphocytes # 1.4 (1.0-4.8) k/uL Monocytes # 0.4 (0-1.0) k/uL Eosinophils # 0.1 (0-0.7) k/uL Basophils # 0.0 (0-0.2) k/uL Sodium 135 L (137-145) mmol/L Potassium 3.8 (3.5-5.1) mmol/L Chloride 103 (98-107) mmol/L Carbon Dioxide 25 (22-30) mmol/L Anion Gap 7 mmol/L BUN 12 (7-17) mg/dL Creatinine 0.59 (0.52-1.04) mg/dL Est GFR (CKD-EPI)AfAm >90 (>60 ml/min/1.73 sqM) Est GFR (CKD-EPI)NonAf >90 (>60 ml/min/1.73 sqM) Glucose 85 (74-99) mg/dL Calcium 9.3 (8.4-10.2) mg/dL Total Bilirubin 0.8 (0.2-1.3) mg/dL AST 16 (14-36) U/L ALT 11 (4-34) U/L Alkaline Phosphatase 53 (38-126) U/L Total Protein 7.2 (6.3-8.2) g/dL Albumin 4.1 (3.5-5.0) g/dL Urine Color Yellow Urine Appearance Cloudy H (Clear) Urine pH 8.0 (5.0-8.0) Ur Specific [place] 1.024 (1.001-1.035) Urine Protein 1+ H (Negative) Urine Glucose (UA) Negative (Negative) Urine Ketones Negative (Negative) Urine Blood Negative (Negative) Urine Nitrite Negative (Negative) Urine Bilirubin Negative (Negative) Urine Urobilinogen 4.0 (<2.0) mg/dL Ur Leukocyte Esterase Large H (Negative) Urine RBC 8 H (0-5) /hpf Urine WBC 149 H (0-5) /hpf Urine WBC Clumps Few H (None) /hpf Ur Squamous Epith Cells 19 H (0-4) /hpf Urine Bacteria Occasional H (None) /hpf Urine Mucus Many H (None) /hpf Blood Type Blood Type Recheck Bld Type Recheck Status 03/26/20 Range/Units 12:14 WBC (3.8-10.6) k/uL RBC (3.80-5.40) m/uL Hgb (11.4-16.0) gm/dL Hct (34.0-46.0) % MCV (80.0-100.0) fL MCH (25.0-35.0) pg MCHC (31.0-37.0) g/dL RDW (11.5-15.5) % Plt Count (150-450) k/uL Neutrophils % % Lymphocytes % % Monocytes % % Eosinophils % % Basophils % % Neutrophils # (1.3-7.7) k/uL Lymphocytes # (1.0-4.8) k/uL Monocytes # (0-1.0) k/uL Eosinophils # (0-0.7) k/uL Basophils # (0-0.2) k/uL Sodium (137-145) mmol/L Potassium (3.5-5.1) mmol/L Chloride (98-107) mmol/L Carbon Dioxide (22-30) mmol/L Anion Gap mmol/L BUN (7-17) mg/dL Creatinine (0.52-1.04) mg/dL Est GFR (CKD-EPI)AfAm (>60 ml/min/1.73 sqM) Est GFR (CKD-EPI)NonAf (>60 ml/min/1.73 sqM) Glucose (74-99) mg/dL Calcium (8.4-10.2) mg/dL Total Bilirubin (0.2-1.3) mg/dL AST (14-36) U/L ALT (4-34) U/L Alkaline Phosphatase (38-126) U/L Total Protein (6.3-8.2) g/dL Albumin (3.5-5.0) g/dL Urine Color Urine Appearance (Clear) Urine pH (5.0-8.0) Ur Specific [place] (1.001-1.035) Urine Protein (Negative) Urine Glucose (UA) (Negative) Urine Ketones (Negative) Urine Blood (Negative) Urine Nitrite (Negative) Urine Bilirubin (Negative) Urine Urobilinogen (<2.0) mg/dL Ur Leukocyte Esterase (Negative) Urine RBC (0-5) /hpf Urine WBC (0-5) /hpf Urine WBC Clumps (None) /hpf Ur Squamous Epith Cells (0-4) /hpf Urine Bacteria (None) /hpf Urine Mucus (None) /hpf Blood Type O Positive Blood Type Recheck O Pos Bld Type Recheck Status No Disposition Clinical Impression: UTI in , Abdominal cramping Disposition: HOME SELF-CARE Condition: Good Instructions (If sedation given, give patient instructions): Urinary Tract Infection in (ED) Additional Instructions: Please use medication as discussed. Please follow-up with OBGYN in next week, call Saturday to make an appointment. Please return to emergency room if the symptoms increase or worsen or for any other concerns. Prescriptions: Cephalexin [Keflex] 500 mg PO Q6HR 10 Days #40 cap Is patient prescribed a controlled substance at d/c from ED?: No Referrals: Christoph Campbell MD [Primary Care Provider] - 1-2 days Jacky Villa MD [STAFF PHYSICIAN] - 1-2 days Time of Disposition: 13:22
[2020-03-29 13:56] LABS: C. trachomatis,PCR Negative (Neg,Equiv); Chlamydia trachomatis Source Vagina; N. gonorrhoeae,PCR Negative (Neg,Equiv); Neisseria Source Vagina
== END 2020-03-26 13:34 | disposition home or self-care (01) ==
LOC: EC 11:09
DX: O23.02 Infections of kidney in pregnancy, second trimester (principal); O21.0 Mild hyperemesis gravidarum; O99.112 Other diseases of the blood and blood-forming organs and certain disorders involving the immune mechanism complicating pregnancy, second trimester; D72.829 Elevated white blood cell count, unspecified; O26.892 Other specified pregnancy related conditions, second trimester; R10.30 Lower abdominal pain, unspecified; O99.332 Smoking (tobacco) complicating pregnancy, second trimester; F17.200 Nicotine dependence, unspecified, uncomplicated; Z3A.18 18 weeks gestation of pregnancy
CPT/HCPCS: 36415; 86900; 86901; 80053; 85025; 81001; 87491; 87591; 87086; 76805; 99284; 96374; 96375; 96361; J2765; J0696

== ENCOUNTER 2020-04-02 11:05 | Observation (INO) | payer OTHER ==
[2020-04-02] MEDS ORDERED: SODIUM CHLORIDE 0.9% 500 ML 500 ML IV ONE (11:15)
[2020-04-02 11:46] LABS: Basophils % (A) 0 %; Eosinophils # (A) 0.1 k/uL (0-0.7); Eosinophils % (A) 1 %; HCT 39.4 % (34.0-46.0); HGB 13.6 gm/dL (11.4-16.0); Lymphocytes # (A) 1.8 k/uL (1.0-4.8); Lymphocytes % (A) 16 %; MCH 31.6 pg (25.0-35.0); MCHC 34.4 g/dL (31.0-37.0); MCV 91.7 fL (80.0-100.0); Mean Platelet Volume 6.5; Monocytes # (A) 0.4 k/uL (0-1.0); Monocytes % (A) 4 %; Neutrophils # (A) 8.9 k/uL (1.3-7.7); Neutrophils % (A) 79 %; Platelet Count 341 k/uL (150-450); RDW 12.6 % (11.5-15.5); WBC 11.3 k/uL (3.8-10.6)
[2020-04-02 11:57] LABS: ALT 14 U/L (4-34); AST 18 U/L (14-36); African American GFR (CKD) >90 (>60 ml/min/1.73 sqM); Albumin 4.1 g/dL (3.5-5.0); Alkaline Phosphatase 53 U/L (38-126); Anion Gap 8 mmol/L; Blood Urea Nitrogen 8 mg/dL (7-17); Calcium 9.2 mg/dL (8.4-10.2); Carbon Dioxide 22 mmol/L (22-30); Chloride 105 mmol/L (98-107); Glucose 97 mg/dL (74-99); Non-African American GFR(CKD) >90 (>60 ml/min/1.73 sqM); Potassium 3.8 mmol/L (3.5-5.1); Sodium 135 mmol/L (137-145); Total Bilirubin 0.8 mg/dL (0.2-1.3); Total Protein 7.3 g/dL (6.3-8.2)
[2020-04-02] MEDS ORDERED: ONDANSETRON 4 MG/2 ML VIAL IVP STA (11:57)
[2020-04-02 12:01] LABS: Appearance,Urine Cloudy (Clear); Bacteria,Urine Rare /hpf; Bilirubin,Urine Negative (Negative); Blood,Urine Trace (Negative); Color,Urine Yellow; Glucose,Urine (UA) Negative (Negative); Ketones,Urine 4+ (Negative); Leukocyte Esterase,Urine Large (Negative); Mucus,Urine Many /hpf; Nitrite,Urine Negative (Negative); Protein,Urine 1+ (Negative); RBC,Urine 17 /hpf (0-5); Specific Gravity,Urine 1.025 (1.001-1.035); Squamous Epithelial Cell,Urine 10 /hpf (0-4); WBC,Urine 125 /hpf (0-5)
[2020-04-02] MEDS ORDERED: SODIUM CHLORIDE 0.9% 1,000 ML IV SCH (12:30)
[2020-04-02] MEDS ORDERED: ACETAMINOPHEN TAB 325 MG TAB PO STA (12:38)
[2020-04-02] MEDS ORDERED: NALOXONE 0.4 MG/ML 1 ML VIAL IV PRN (12:40)
--- NOTE | 2020-04-02 12:40 | ED ---
Female Urogenital HPI - General Chief complaint: Urogenital Stated complaint: recheck - 19wks preg, UTI Time Seen by Provider: 04/02/20 11:15 Source: patient Mode of arrival: ambulatory Limitations: no limitations - History of Present Illness Initial comments: 29-year-old feel presents to the emergency department today for chief complaint of continued dysuria back pain. Patient states she continues have dysuria and back pain she is currently 19 weeks . Patient states she's been taking antibiotics however has not been able to keep them down [address] Fontaine nausea and vomiting. Patient denies fevers chills Gen. laser additional complaints upon arrival she appears nontoxic no acute distress no active vomiting. - Related Data Home Medications Medication Instructions Recorded Confirmed Gka-Gsel-Xfeee Acid 1 cap PO DAILY 04/02/20 04/02/20 [-U Capsule (formulary)] Previous Rx's Medication Instructions Recorded Cephalexin [Keflex] 500 mg PO Q6HR 10 Days #40 cap 03/26/20 Allergies Allergy/AdvReac Type Severity Reaction Status Date / Time No Known Allergies Allergy Verified 04/02/20 12:48 Review of Systems ROS Statement: Those systems with pertinent positive or pertinent negative responses have been documented in the HPI. ROS Other: All systems not noted in ROS Statement are negative. 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, freq kidney infections History of Any Multi-Drug Resistant Organisms: None Reported Past Surgical History: No Surgical Hx Reported Past Anesthesia/Blood Transfusion Reactions: No Reported Reaction Past Psychological History: Anxiety Smoking Status: Current every day smoker Past Alcohol Use History: None Reported Past Drug Use History: None Reported - Past Family History Father Family Medical History: No Reported History Mother Family Medical History: No Reported History General Exam - General Exam Comments Initial Comments: General: The patient is awake and alert, in no distress Eye: Pupils are equal, round and reactive to light, extra-ocular movements are intact. No nystagmus. There is normal conjunctiva bilaterally. No signs of icterus. Cardiovascular: There is a regular rate and rhythm. No murmur, rub or gallop is appreciated. Respiratory: Lungs are clear to auscultation, respirations are non-labored, breath sounds are equal. No wheezes, stridor, rales, or rhonchi. Gastrointestinal: Soft, non-tender abdomen without masses or organomegaly noted. There is no rebound or guarding present. No CVA tenderness Musculoskeletal: Normal ROM, no tenderness. Strength 5/5. Sensation intact. radial pulses equal bilaterally 2+. Neurological: A&O x 3. CN II-XII intact grossly, There are no obvious motor or sensory deficits. Coordination appears grossly intact. Speech is normal. Skin: Skin is warm and dry and no rashes or lesions are noted. Psychiatric: Cooperative, appropriate mood & affect, normal judgment. Limitations: no limitations Course Vital Signs 04/02/20 04/02/20 11:09 13:08 Temperature 98.7 F Pulse Rate 89 77 Respiratory 18 18 Rate Blood Pressure 111/78 104/58 O2 Sat by Pulse 100 100 Oximetry Medical Decision Making - Medical Decision Making FHT WNL> No abdominal pain no vaginal bleeding endorsed. Patient has +4 ketones, appears dry. Labs reveal WBC in urine previous culture (-). Rocephin given as new urine culture pending. Previous STI testing (-). Dr Larson spoke iwth Dr. Castro who will manage patient dehydration and possible UTI. - Lab Data Result diagrams: 04/02/20 11:23 04/02/20 11:23 Lab Results 04/02/20 04/02/20 04/02/20 Range/Units 11:23 11:23 11:23 WBC 11.3 H (3.8-10.6) k/uL RBC 4.30 (3.80-5.40) m/uL Hgb 13.6 (11.4-16.0) gm/dL Hct 39.4 (34.0-46.0) % MCV 91.7 (80.0-100.0) fL MCH 31.6 (25.0-35.0) pg MCHC 34.4 (31.0-37.0) g/dL RDW 12.6 (11.5-15.5) % Plt Count 341 (150-450) k/uL Neutrophils % 79 % Lymphocytes % 16 % Monocytes % 4 % Eosinophils % 1 % Basophils % 0 % Neutrophils # 8.9 H (1.3-7.7) k/uL Lymphocytes # 1.8 (1.0-4.8) k/uL Monocytes # 0.4 (0-1.0) k/uL Eosinophils # 0.1 (0-0.7) k/uL Basophils # 0.0 (0-0.2) k/uL Sodium 135 L (137-145) mmol/L Potassium 3.8 (3.5-5.1) mmol/L Chloride 105 (98-107) mmol/L Carbon Dioxide 22 (22-30) mmol/L Anion Gap 8 mmol/L BUN 8 (7-17) mg/dL Creatinine 0.49 L (0.52-1.04) mg/dL Est GFR (CKD-EPI)AfAm >90 (>60 ml/min/1.73 sqM) Est GFR (CKD-EPI)NonAf >90 (>60 ml/min/1.73 sqM) Glucose 97 (74-99) mg/dL Plasma Lactic Acid Carter (0.7-2.0) mmol/L Calcium 9.2 (8.4-10.2) mg/dL Total Bilirubin 0.8 (0.2-1.3) mg/dL AST 18 (14-36) U/L ALT 14 (4-34) U/L Alkaline Phosphatase 53 (38-126) U/L Total Protein 7.3 (6.3-8.2) g/dL Albumin 4.1 (3.5-5.0) g/dL Urine Color Yellow Urine Appearance Cloudy H (Clear) Urine pH 6.0 (5.0-8.0) Ur Specific [place] 1.025 (1.001-1.035) Urine Protein 1+ H (Negative) Urine Glucose (UA) Negative (Negative) Urine Ketones 4+ H (Negative) Urine Blood Trace H (Negative) Urine Nitrite Negative (Negative) Urine Bilirubin Negative (Negative) Urine Urobilinogen 2.0 (<2.0) mg/dL Ur Leukocyte Esterase Large H (Negative) Urine RBC 17 H (0-5) /hpf Urine WBC 125 H (0-5) /hpf Ur Squamous Epith Cells 10 H (0-4) /hpf Urine Bacteria Rare H (None) /hpf Urine Mucus Many H (None) /hpf 04/02/20 Range/Units 11:35 WBC (3.8-10.6) k/uL RBC (3.80-5.40) m/uL Hgb (11.4-16.0) gm/dL Hct (34.0-46.0) % MCV (80.0-100.0) fL MCH (25.0-35.0) pg MCHC (31.0-37.0) g/dL RDW (11.5-15.5) % Plt Count (150-450) k/uL Neutrophils % % Lymphocytes % % Monocytes % % Eosinophils % % Basophils % % Neutrophils # (1.3-7.7) k/uL Lymphocytes # (1.0-4.8) k/uL Monocytes # (0-1.0) k/uL Eosinophils # (0-0.7) k/uL Basophils # (0-0.2) k/uL Sodium (137-145) mmol/L Potassium (3.5-5.1) mmol/L Chloride (98-107) mmol/L Carbon Dioxide (22-30) mmol/L Anion Gap mmol/L BUN (7-17) mg/dL Creatinine (0.52-1.04) mg/dL Est GFR (CKD-EPI)AfAm (>60 ml/min/1.73 sqM) Est GFR (CKD-EPI)NonAf (>60 ml/min/1.73 sqM) Glucose (74-99) mg/dL Plasma Lactic Acid Carter 0.7 (0.7-2.0) mmol/L Calcium (8.4-10.2) mg/dL Total Bilirubin (0.2-1.3) mg/dL AST (14-36) U/L ALT (4-34) U/L Alkaline Phosphatase (38-126) U/L Total Protein (6.3-8.2) g/dL Albumin (3.5-5.0) g/dL Urine Color Urine Appearance (Clear) Urine pH (5.0-8.0) Ur Specific [place] (1.001-1.035) Urine Protein (Negative) Urine Glucose (UA) (Negative) Urine Ketones (Negative) Urine Blood (Negative) Urine Nitrite (Negative) Urine Bilirubin (Negative) Urine Urobilinogen (<2.0) mg/dL Ur Leukocyte Esterase (Negative) Urine RBC (0-5) /hpf Urine WBC (0-5) /hpf Ur Squamous Epith Cells (0-4) /hpf Urine Bacteria (None) /hpf Urine Mucus (None) /hpf Disposition Clinical Impression: Dehydration, Urine WBC increased Disposition: ADMITTED IP TO THIS HOSP Condition: Stable Is patient prescribed a controlled substance at d/c from ED?: No Time of Disposition: 12:40
[2020-04-02] MEDS ORDERED: ACETAMINOPHEN TAB 500 MG TAB PO PRN (13:36)
[2020-04-02] MEDS: LACTATED RINGERS 1,000 ML IV SCH ×4 (13:45→22:33)
[2020-04-02 13:56] LABS: Glucose,Whole Blood 71 mg/dL (75-99)
[2020-04-02] MEDS ORDERED: LACTATED RINGERS 1,000 ML IV SCH (14:45)
[2020-04-02] MEDS: PSEUDOEPHEDRINE 30 MG TAB PO PRN ×2 (16:44→22:42)
[2020-04-02] MEDS: HYDROmorphone 0.5 MG/0.5 ML SYRINGE IVP PRN ×2 (16:45→22:31)
--- NOTE | 2020-04-02 20:18 | P.HPOB ---
History of Present Illness H&P Date: 04/02/20 Chief Complaint: 19 plus weeks, severe dehydration with nausea and vomiting The patient is a 29-year-old 3 para 2001 admitted at 19+ weeks through the emergency department where she was found with severe dehydration, 4+ ketones on urinalysis, with unrelenting nausea and vomiting over the last several days. She has been able to keep anything down orally for several days. She does report normal activity and no other complications. She's had no bleeding or other vaginal concerns. Obstetrical history: 3 para 2001 with 2 term vaginal deliveries without complications. record is not yet available on the chart. Gynecologic history: Unremarkable with no history of any infections to include STDs. Review of Systems Review of systems is confined to history of present illness. 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, freq kidney infections History of Any Multi-Drug Resistant Organisms: None Reported Past Surgical History: No Surgical Hx Reported Past Anesthesia/Blood Transfusion Reactions: No Reported Reaction Past Psychological History: Anxiety Smoking Status: Current every day smoker Past Alcohol Use History: None Reported Past Drug Use History: None Reported Additional Drug Use History / Comment(s): 3 cigs/day - Past Family History Father Family Medical History: No Reported History Mother Family Medical History: No Reported History Medications and Allergies Home Medications Medication Instructions Recorded Confirmed Type Cephalexin [Keflex] 500 mg PO Q6HR 10 Days #40 cap 03/26/20 04/02/20 Rx Umb-Fexs-Fbpdv Acid 1 cap PO DAILY 04/02/20 04/02/20 History [-U Capsule (formulary)] Allergies Allergy/AdvReac Type Severity Reaction Status Date / Time No Known Allergies Allergy Verified 04/02/20 12:48 Exam Vital Signs Temp Pulse Pulse Resp BP BP Pulse Ox 04/02/20 16:00 98.1 F 85 16 124/72 98 04/02/20 13:34 98.2 F 73 16 95/59 99 04/02/20 13:08 77 18 104/58 100 04/02/20 11:09 98.7 F 89 18 111/78 100 Intake and Output 04/02/20 04/02/20 04/02/20 06:59 14:59 22:59 Intake Total 1000 Balance 1000 Intake: IV 1000 Other: Weight 74.843 kg In general, this is a well-developed, well-nourished white female in no current acute distress she has been aggressively rehydrated. Her heart has a regular r hythm and rate without murmur. Her lungs are clear to auscultation bilaterally in all mendez. Her abdomen is gravid, nondistended, has normal active bowel sounds, soft, nontender, without any palpable masses aside from uterine fundus which is appropriate for 19 weeks of gestation. Her 70s without any cyanosis, clubbing, or edema and are nontender to palpation bilaterally. Digital cervical examination is deferred. Results Result Diagrams: 04/02/20 11:23 04/02/20 11:23 Abnormal Lab Results - Last 24 Hours (Table) 04/02/20 04/02/20 04/02/20 Range/Units 11:23 11:23 11:23 WBC 11.3 H (3.8-10.6) k/uL Neutrophils # 8.9 H (1.3-7.7) k/uL Sodium 135 L (137-145) mmol/L Creatinine 0.49 L (0.52-1.04) mg/dL POC Glucose (mg/dL) (75-99) mg/dL Urine Appearance Cloudy H (Clear) Urine Protein 1+ H (Negative) Urine Ketones 4+ H (Negative) Urine Blood Trace H (Negative) Ur Leukocyte Esterase Large H (Negative) Urine RBC 17 H (0-5) /hpf Urine WBC 125 H (0-5) /hpf Ur Squamous Epith Cells 10 H (0-4) /hpf Urine Bacteria Rare H (None) /hpf Urine Mucus Many H (None) /hpf 04/02/20 Range/Units 13:53 WBC (3.8-10.6) k/uL Neutrophils # (1.3-7.7) k/uL Sodium (137-145) mmol/L Creatinine (0.52-1.04) mg/dL POC Glucose (mg/dL) 71 L (75-99) mg/dL Urine Appearance (Clear) Urine Protein (Negative) Urine Ketones (Negative) Urine Blood (Negative) Ur Leukocyte Esterase (Negative) Urine RBC (0-5) /hpf Urine WBC (0-5) /hpf Ur Squamous Epith Cells (0-4) /hpf Urine Bacteria (None) /hpf Urine Mucus (None) /hpf Microbiology - Last 24 Hours (Table) 04/02/20 11:23 Urine Culture - Preliminary Urine,Voided Assessment and Plan (1) Vomiting Current Visit: No Status: Acute Code(s): R11.10 - VOMITING, UNSPECIFIED SNOMED Code(s): 674411594 (2) Dehydration Current Visit: Yes Status: Acute Code(s): E86.0 - DEHYDRATION SNOMED Code(s): 13092492 Plan: Though she does have leukocytosis, I do not suspect an infectious etiology. I suspect dehydration is the etiology of the nausea which with then contribute to further nausea and vomiting and further dehydration. Since being admitted and having aggressive rehydration intravenously, she feels significantly better and has tolerated some liquids by mouth to this point. We will continue to hydrate her and recheck labs in the morning. We will likely advance her diet assuming she tolerates liquids through the night and anticipate discharge home tomorrow in the mid to late morning.
[2020-04-02] MEDS: ONDANSETRON 4 MG/2 ML VIAL IVP PRN (20:46)
[2020-04-02] MEDS: METOCLOPRAMIDE 5 MG/ML 2 ML VIAL IVP PRN (22:30)
[2020-04-03] MEDS: ONDANSETRON 4 MG/2 ML VIAL IVP PRN (05:02)
[2020-04-03] MEDS: HYDROmorphone 0.5 MG/0.5 ML SYRINGE IVP PRN (05:04)
[2020-04-03 06:54] LABS: Basophils % (A) 0 %; Eosinophils # (A) 0.1 k/uL (0-0.7); Eosinophils % (A) 2 %; HCT 32.1 % (34.0-46.0); HGB 10.7 gm/dL (11.4-16.0); Lymphocytes # (A) 1.7 k/uL (1.0-4.8); Lymphocytes % (A) 23 %; MCH 31.3 pg (25.0-35.0); MCHC 33.2 g/dL (31.0-37.0); MCV 94.2 fL (80.0-100.0); Mean Platelet Volume 6.9; Monocytes # (A) 0.4 k/uL (0-1.0); Monocytes % (A) 5 %; Neutrophils % (A) 69 %; Platelet Count 242 k/uL (150-450); RBC 3.41 m/uL (3.80-5.40); RDW 12.1 % (11.5-15.5); WBC 7.2 k/uL (3.8-10.6)
[2020-04-03 07:03] LABS: ALT 11 U/L (4-34); AST 15 U/L (14-36); African American GFR (CKD) >90 (>60 ml/min/1.73 sqM); Albumin 2.7 g/dL (3.5-5.0); Alkaline Phosphatase 39 U/L (38-126); Anion Gap 2 mmol/L; Blood Urea Nitrogen 3 mg/dL (7-17); Carbon Dioxide 25 mmol/L (22-30); Chloride 107 mmol/L (98-107); Glucose 83 mg/dL (74-99); Non-African American GFR(CKD) >90 (>60 ml/min/1.73 sqM); Potassium 3.6 mmol/L (3.5-5.1); Sodium 134 mmol/L (137-145); Total Bilirubin 0.6 mg/dL (0.2-1.3); Total Protein 5.2 g/dL (6.3-8.2)
[2020-04-03] MEDS: METOCLOPRAMIDE 5 MG/ML 2 ML VIAL IVP PRN (09:52)
[2020-04-03 11:08] VITALS: BP 97/46; PULSE 74; RESP 16; TEMP 98.4
[2020-04-03] MEDS ORDERED: HYDROcodone/APAP 5-325MG 1 EACH TAB PO PRN (11:22)
[2020-04-03] MEDS ORDERED: PANTOPRAZOLE 40 MG TABLET PO STA (11:22)
--- NOTE | 2020-04-03 11:28 | P.DS ---
Providers Date of admission: 04/02/20 12:40 Expected date of discharge: 04/03/20 Attending physician: Jacky Villa Primary care physician: Christoph Campbell - Discharge Diagnosis(es) (1) Vomiting Current Visit: No Status: Acute (2) Dehydration Current Visit: Yes Status: Acute Hospital Course: The patient is a 29-year-old 3 para 2 admitted to the ER at 19 weeks with intractable nausea and vomiting leading to severe dehydration. Urinalysis demonstrated 4+ urine ketones, blood sugar was within normal limits. She complains of the septum over the last 2-3 weeks which is additionally led to a significant headache which she feels is tension in nature and located on the right posterior occipital region and neck. She is admitted for aggressive rehydration which was carried out and significantly improved her nausea and vomiting. She was able to tolerate liquids though she did have one episode of nausea with vomiting this morning. She was started prior to discharge on Prilosec 40 mg daily for which she received a prescription to be continued at home. While in the hospital, she received intravenous Dilaudid for her ongoing headache which helped but was discontinued on the morning of discharge in favor of 1 or 2 doses of [place]. I did suggest to her that she cannot continue taking narcotics for this problem and, should it continue to be a problem, will be referred for physical therapy and suggested that, in the short-term, she apply heat as needed. Her diet was advanced to regular and, assuming she tolerates it reasonably, with the patient will be discharged home to follow-up in the office in approximately 3 days time. Discharge medications included continued vitamins as well as a prescription for Prilosec 40 mg daily, #30 dispensed with 9 refills. She was otherwise to use [id number] analgesic pain medications as needed. Initial leukocytosis has resolved and labs are essentially within normal limits. She understood all of her instructions and agrees to follow up in 3 days as noted above. Procedures: #1. IV rehydration #2. IV antibiotics #3. IV pain control Patient Condition at Discharge: Stable Plan - Discharge Summary New Discharge Prescriptions: No Action Cephalexin [Keflex] 500 mg PO Q6HR 10 Days #40 cap Xgc-Sgro-Cdkmo Acid [-U Capsule (formulary)] 1 cap PO DAILY Discharge Medication List Cephalexin [Keflex] 500 mg PO Q6HR 10 Days #40 cap 09/26/20 [Rx] Yiz-Tmfg-Ingyh Acid [-U Capsule (formulary)] 1 cap PO DAILY 04/02/20 [History] Follow up Appointment(s)/Referral(s): Christoph Campbell MD [Primary Care Provider] - 1-2 days Jacky Villa MD [STAFF PHYSICIAN] - 3 Days Discharge Disposition: HOME SELF-CARE
== END 2020-04-03 13:20 | disposition home or self-care (01) ==
LOC: EC 11:05 → 4FBP 12:40
PROVIDERS: ADMIT Obstetrics & Gynecology; ATTEND Obstetrics & Gynecology
DX: O23.42 Unspecified infection of urinary tract in pregnancy, second trimester (principal); Z3A.19 19 weeks gestation of pregnancy; R11.2 Nausea with vomiting, unspecified; E86.0 Dehydration; O99.332 Smoking (tobacco) complicating pregnancy, second trimester; F41.9 Anxiety disorder, unspecified
CPT/HCPCS: 96376 ×2; 96361 ×2; 96375 ×2; 96365; 99284; 36415; 80053 ×2; 83605; 85025 ×2; 81001; 87040; 87086; G0378 ×2; J2765 ×2; J2405 ×2; J0696; J1170 ×2

== ENCOUNTER 2020-08-04 05:55 | Inpatient (IN) | payer OTHER ==
[2020-08-04] MEDS: LACTATED RINGERS 1,000 ML IV SCH ×5 (06:28→14:23)
[2020-08-04 07:13] LABS: Appearance,Urine Cloudy (Clear); Bacteria,Urine Rare /hpf; Bilirubin,Urine 1+ (Negative); Blood,Urine Negative (Negative); Color,Urine Yellow; Glucose,Urine (UA) Negative (Negative); Ketones,Urine 4+ (Negative); Leukocyte Esterase,Urine Moderate (Negative); Mucus,Urine Many /hpf; Nitrite,Urine Negative (Negative); Protein,Urine 1+ (Negative); RBC,Urine 1 /hpf (0-5); Specific Gravity,Urine 1.027 (1.001-1.035); Squamous Epithelial Cell,Urine 14 /hpf (0-4); WBC,Urine 8 /hpf (0-5)
[2020-08-04 07:32] LABS: Glucose,Whole Blood 88 mg/dL (75-99)
--- NOTE | 2020-08-04 08:35 | US ---
EXAMINATION TYPE: US kidneys/renal and bladder DATE OF EXAM: 08/04/2020 COMPARISON: CT 06/20/2019 CLINICAL HISTORY: pain. R/O kidney stones.. Patient is EXAM MEASUREMENTS: Right Kidney: 11.6 x 4.7 x 5.3 cm Left Kidney: 12.7 x 4.3 x 3.9 cm Right Kidney: Mild to moderate hydronephrosis. No stones visualized Left Kidney: No hydronephrosis or masses seen Bladder: Not distended, wnl as visualized There is mild right sided hydronephrosis at this point in time. No nephrolithiasis is seen. No mass es are identified. Urinary bladder is poorly distended and is thus suboptimally evaluated. IMPRESSION: New asymmetric [id number] right-sided hydronephrosis. This is nonspecific in third trimester female. This could be related to mass effect from enlarged uterus. Obstructing ure ter stone is in differential.
[2020-08-04 10:20] LABS: Appearance,Urine Cloudy (Clear); Bilirubin,Urine Negative (Negative); Blood,Urine Negative (Negative); Color,Urine Yellow; Glucose,Urine (UA) Negative (Negative); Ketones,Urine 4+ (Negative); Leukocyte Esterase,Urine Negative (Negative); Mucus,Urine Few /hpf; Nitrite,Urine Negative (Negative); PH, Urine 6.5 (5.0-8.0); Protein,Urine Trace (Negative); RBC,Urine 1 /hpf (0-5); Specific Gravity,Urine 1.019 (1.001-1.035); Squamous Epithelial Cell,Urine 5 /hpf (0-4); Urobilinogen,Urine <2.0 mg/dL (<2.0); WBC,Urine 2 /hpf (0-5)
[2020-08-04 10:48] LABS: Amphetamine Screen,Urine Detected (NotDetected); Barbiturate Screen,Urine Not Detected (NotDetected); Benzodiazepines Screen,Urine Detected (NotDetected); Cocaine Screen,Urine Not Detected (NotDetected); Methadone Screen, Urine Not Detected (NotDetected); Opiate Screen,Urine Not Detected (NotDetected); Oxycodone Screen, Urine Not Detected (NotDetected); Phencyclidine Screen,Urine Not Detected (NotDetected); Tricyclic Antidepressant,Urine Not Detected (NotDetected); Urn Cannabinoid Scrn Not Detected (NotDetected)
[2020-08-04 11:29] LABS: Basophils % (A) 0 %; Eosinophils # (A) 0.1 k/uL (0-0.7); Eosinophils % (A) 1 %; HCT 27.6 % (34.0-46.0); HGB 9.3 gm/dL (11.4-16.0); Lymphocytes % (A) 15 %; MCH 30.1 pg (25.0-35.0); MCHC 33.6 g/dL (31.0-37.0); MCV 89.5 fL (80.0-100.0); Mean Platelet Volume 6.8; Monocytes # (A) 0.6 k/uL (0-1.0); Monocytes % (A) 4 %; Neutrophils # (A) 10.3 k/uL (1.3-7.7); Neutrophils % (A) 78 %; Platelet Count 470 k/uL (150-450); RBC 3.09 m/uL (3.80-5.40); RDW 14.2 % (11.5-15.5); WBC 13.1 k/uL (3.8-10.6)
[2020-08-04] MEDS ORDERED: DEXTROSE 5%-LACTATED RINGERS 1,000 ML IV SCH (11:30)
[2020-08-04] MEDS ORDERED: DEXTROSE 5%-0.9% NACL 1,000 ML IV SCH (11:30)
[2020-08-04] MEDS ORDERED: CARBOPROST TROMETHAMINE 250 MCG/ML 1 ML AMP IM PRN (11:32)
[2020-08-04] MEDS ORDERED: LIDOCAINE 0.5% (PF) 5 MG/ML (50 ML SDV) SQ PRN (11:32)
[2020-08-04] MEDS ORDERED: TERBUTALINE 1 MG/ML VIAL SQ PRN (11:32)
[2020-08-04] MEDS ORDERED: OXYTOCIN 10 UNIT/ML 1 ML VIAL IM PRN (11:32)
[2020-08-04] MEDS ORDERED: METHYLERGONOVINE 0.2 MG/ML 1 ML AMP IM PRN (11:32)
[2020-08-04 11:38] LABS: ALT 35 U/L (4-34); AST 32 U/L (14-36); African American GFR (CKD) >90 (>60 ml/min/1.73 sqM); Albumin 2.8 g/dL (3.5-5.0); Alkaline Phosphatase 132 U/L (38-126); Anion Gap 8 mmol/L; Blood Urea Nitrogen 8 mg/dL (7-17); Calcium 8.5 mg/dL (8.4-10.2); Carbon Dioxide 21 mmol/L (22-30); Chloride 105 mmol/L (98-107); Glucose 79 mg/dL (74-99); Non-African American GFR(CKD) >90 (>60 ml/min/1.73 sqM); Potassium 3.8 mmol/L (3.5-5.1); Sodium 134 mmol/L (137-145); Total Bilirubin 0.7 mg/dL (0.2-1.3); Total Protein 5.5 g/dL (6.3-8.2)
--- NOTE | 2020-08-04 11:38 | P.HPOB ---
History of Present Illness H&P Date: 08/04/20 Chief Complaint: Intrauterine 37 weeks with intractable back pain Rain is a 29 year old at 37 weeks 6 days gestation who has had no care. I barely saw her April 11 and that was the last time she has been seen by my office. At that time she had an ultrasound verifying single fetus and dates were established at 20 weeks. At that time she also had cultures done which revealed Trichomonas. A prescription for Flagyl have been fortified to the pharmacy but she did not return for any verification of cure and it is unclear for partner was treated. From my standpoint have no idea if her symptoms today have anything to do with any potential infections so we will order several tests to try to determine if there are some other unusual reason for her to have increasing back pain. She relates that her back pain started at approximately 2 this morning and has not relented. She is tearful but she is not writhing in pain she relates the pain is in her lower back and does rotate around little bit to her front of her stomach but there is no other areas of pain. She does have a history of pyelonephritis but her urine sample is negative. A urine drug screen has been ordered. Ultrasound kidneys does not show any signs of kidney stone. We'll order a ultrasound for RICARDO and EFW as she is again not been seen in almost 20 weeks. She relates that she had come for her initial visit and that she has a daughter with autism and it precluded her from being a little to come to a single appointment going forward. A Glucola screen was not done due to her not coming to the office.. In evaluating her, she is noted have mild tachycardia with heart rate between 90 and 120. It was 1:30 initially but since she is gotten some IV hydration his come down. Her urine sample does show 4+ ketones and a repeat urine which is a much better thu n catch sample verifies that she still has 4+ ketones despite 2 L of fluid. We will switch her to a D5 LR and try and decrease her ketonuria level. She denies having any nausea no vomiting. Furthermore she relates that she is eating and tolerating a diet well. Her one touch was 88 which is not indicative of ketonuria/diabetes either. Something is missing from this picture, I'm unsure why she would have such large ketones when she otherwise says she is not having any other problems other than the back pain that started last night. Initially on presentation to labor and delivery she was dilated 1/2 cm 70% effaced and -2 station. She has been here for about 5 hours and in that time her pain has only worsened. It is still located in her lower back and we are still seeing some contractions on the monitor but they do not appear more than every 8-10 minutes. She I had a long discussion about her urinalysis and her urine drug screen revealing amphetamines and benzodiazepines which she denies taking. She also is aware of my concern with no verification test for Trichomonas and so we did re-culture for Trichomonas. Due to her continued discomfort I made the decision that she should have another pelvic exam verify that she was not in early labor with some type of unusual labor picture. She is now 3 cm dilated 80% effaced and -2 station cervix is much more anterior than what it was described earlier. I suspect that the pain now is contractions that are in her back possibly due to position ultrasound does verified vertex or. We will admit her and provided IV GBS prophylactic antibiotics likely artificial rupture membranes once those are in and expect spontaneous vaginal delivery. He plans to use an epidural for analgesia. All the questions are answered for this time and will be assuming care. Category 1 tracing with reactive NST is also noted. 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, freq kidney infections History of Any Multi-Drug Resistant Organisms: None Reported Past Surgical History: No Surgical Hx Reported Past Anesthesia/Blood Transfusion Reactions: No Reported Reaction Smoking Status: Current every day smoker, Current some day smoker - Past Family History Father Family Medical History: No Reported History Mother Family Medical History: No Reported History Medications and Allergies Home Medications Medication Instructions Recorded Confirmed Type Leb-Hibl-Gbryu Acid 1 cap PO DAILY 04/02/20 08/04/20 History [-U Capsule (formulary)] Allergies Allergy/AdvReac Type Severity Reaction Status Date / Time No Known Allergies Allergy Verified 08/04/20 06:03 Exam Osteopathic Statement: *. No significant issues noted on an osteopathic structural exam other than those noted in the History and Physical/Consult. Vital Signs Temp Pulse Resp BP Pulse Ox 08/04/20 06:15 98.5 F 133 H 24 133/81 100 Intake and Output 08/03/20 08/04/20 08/04/20 22:59 06:59 14:59 Other: Weight 73.936 kg Results Result Diagrams: 08/04/20 11:05 Abnormal Lab Results - Last 24 Hours (Table) 08/04/20 08/04/20 Range/Units 06:35 09:41 Urine Appearance Cloudy H Cloudy H (Clear) Urine Protein 1+ H Trace H (Negative) Urine Ketones 4+ H 4+ H (Negative) Urine Bilirubin 1+ H (Negative) Ur Leukocyte Esterase Moderate H (Negative) Urine WBC 8 H (0-5) /hpf Ur Squamous Epith Cells 14 H 5 H (0-4) /hpf Urine Bacteria Rare H (None) /hpf Urine Mucus Many H Few H (None) /hpf
[2020-08-04] MEDS ORDERED: OXYTOCIN 30 UNITS/500 ML NS 30 UNIT in SALINE 1 500ML.BAG IV SCH (11:45)
--- NOTE | 2020-08-04 12:01 | US ---
EXAMINATION TYPE: US OB limited DATE OF EXAM: 08/04/2020 COMPARISON: NONE CLINICAL HISTORY: no care. Ricardo/efw EXAM PERFORMED: Transabdominal (TA) GESTATIONAL AGE / DATING Physician Established: (37 weeks/3 days) EDC: 08/22/2020 Dates by Current Scan: (35 weeks/4 days) EDC: 09/04/2020 BPD 9.07 CM 36W5D HC 32.38 CM 36W4D AC 31.96CM 35W6D FL 6.80CM 35W0D HC/AC 1.01CM WNL FL/AC 21.27 CM WNL FL/HC 20.99 CM WNL SURVEY RICARDO: 12.80 CM /normal PRESENTATION: Vertex HEART RATE: 147pm RHYTHM: Normal IMPRESSION: Limited scanning was performed. Normal amniotic fluid index. Single viable intr auterine present corresponding to ultrasound age 35 weeks 4 days with estimated date of delivery 2020
[2020-08-04 12:07] LABS: Basophils % (A) 0 %; Eosinophils % (A) 0 %; HCT 34.4 % (34.0-46.0); Lymphocytes # (A) 1.9 k/uL (1.0-4.8); Lymphocytes % (A) 13 %; MCH 29.1 pg (25.0-35.0); MCV 91.1 fL (80.0-100.0); Mean Platelet Volume 8.4; Monocytes # (A) 0.6 k/uL (0-1.0); Monocytes % (A) 4 %; Neutrophils # (A) 11.7 k/uL (1.3-7.7); Neutrophils % (A) 80 %; Platelet Count 591 k/uL (150-450); RBC 3.77 m/uL (3.80-5.40); RDW 14.1 % (11.5-15.5); WBC 14.5 k/uL (3.8-10.6)
[2020-08-04] MEDS: AMPICILLIN 1,000 MG in SODIUM CHLORIDE 0.9% 50 ML IVPB SCH ×3 (12:20→19:55)
[2020-08-04] MEDS ORDERED: ROPIVACAINE 100 MG, fentaNYL (PF) 200 MCG in SODIUM CHLORIDE 0.9% 76 ML EPIDURAL ONE (14:00)
--- NOTE | 2020-08-04 23:42 | P.PROBDLV ---
Vaginal Delivery Note - . Vaginal Delivery Note: Please see history and physical for details of patient's admission. The patient progressed to complete dilation after artificial rupture of membranes with clear fluid noted and oxytocin augmentation of labor. Once reaching complete dilation, she pushed for a couple pushes and infant's head came to a crown followed by the anterior shoulder. Nose and mouth were bulb suctioned. With one further push, the remainder the infant easily delivered and was placed on mother's abdomen. Cord was clamped and cut and infant was taken to warmer for evaluation. A viable male is noted with scores of 8 at 1 minute and 9 at 5 minutes and weight of 5 pounds 13.7 ounces. Her placenta delivered shortly thereafter, intact, with a three-vessel cord. Uterus contracted well after oxytocin was given and uterine massage was carried out. Inspection of the perineum revealed some mild abrasions but no active bleeding. She did receive several doses of ampicillin while in labor due to unknown group B streptococcus status. Placenta will be sent to pathology. Estimated blood loss is approximately 50 mL. Both mother and are in stable condition.
[2020-08-05] MEDS ORDERED: ACETAMINOPHEN TAB 325 MG TAB PO PRN (00:19)
[2020-08-05] MEDS ORDERED: BENZOCAINE/MENTHOL SPRAY 1 GM/SPRAY AEROSOL TOPICAL PRN (00:19)
[2020-08-05] MEDS ORDERED: diphenhydrAMINE 25 MG CAP PO PRN (00:19)
[2020-08-05] MEDS ORDERED: diphenhydrAMINE 50 MG CAP PO PRN (00:19)
[2020-08-05] MEDS ORDERED: OXYTOCIN 30 UNITS/500 ML NS 30 UNIT in SALINE 1 500ML.BAG IV SCH (00:19)
[2020-08-05] MEDS ORDERED: HYDROCORTISONE 2.5% RECTAL CREAM 30 GM TUBE RECTAL PRN (00:19)
[2020-08-05] MEDS ORDERED: SIMETHICONE 80 MG CHEWABLE PO PRN (00:19)
[2020-08-05] MEDS ORDERED: ZOLPIDEM 5 MG TAB PO PRN (00:19)
[2020-08-05] MEDS ORDERED: LANOLIN CREAM 5 GM TUBE TOPICAL PRN (00:19)
[2020-08-05] MEDS ORDERED: diphenhydrAMINE 50 MG/ML 1 ML VIAL IVP PRN ×2 (00:19)
[2020-08-05] MEDS: AMPICILLIN 1,000 MG in SODIUM CHLORIDE 0.9% 50 ML IVPB SCH (00:35)
[2020-08-05] MEDS: SENNOSIDES-DOCUSATE SODIUM 1 EACH TAB PO SCH ×2 (00:53→08:38)
[2020-08-05] MEDS: IBUPROFEN 600 MG TAB PO PRN ×2 (01:06→08:37)
[2020-08-05] MEDS: LACTATED RINGERS 1,000 ML IV SCH (04:06)
[2020-08-05 08:04] LABS: Basophils % (A) 0 %; Eosinophils # (A) 0.2 k/uL (0-0.7); Eosinophils % (A) 1 %; HCT 29.5 % (34.0-46.0); HGB 9.7 gm/dL (11.4-16.0); Lymphocytes # (A) 1.9 k/uL (1.0-4.8); Lymphocytes % (A) 14 %; MCH 29.4 pg (25.0-35.0); MCHC 32.8 g/dL (31.0-37.0); MCV 89.8 fL (80.0-100.0); Monocytes # (A) 0.9 k/uL (0-1.0); Monocytes % (A) 7 %; Neutrophils # (A) 10.8 k/uL (1.3-7.7); Neutrophils % (A) 78 %; Platelet Count 491 k/uL (150-450); RBC 3.28 m/uL (3.80-5.40); RDW 13.7 % (11.5-15.5); WBC 13.9 k/uL (3.8-10.6)
[2020-08-05] MEDS ORDERED: HYDROcodone/APAP 5-325MG 1 EACH TAB PO PRN (08:59)
--- NOTE | 2020-08-05 08:59 | P.PNOBGVD ---
Subjective - Subjective Principal diagnosis: Post day 1 Interval history: Overall Rain appears stable. She does continue to complain of back pain since yesterday with it is somewhat different. She now relates that she has a history of bulging disks in her back so she is not sure that's what is causing the pain in the immediate been aggravated by the labor process of the . She also did receive an epidural some out surgical safety epidural is causing some of her pain she is laying in bed overall comfortable does not. Any acute distress so we'll just adding an deferred oral pain medication to her regimen and see if we can at least take the edge off. Otherwise her vital signs are stable and afebrile. Heart regular lungs clear abdomen abdomen soft. Uterus is firm and lochia is reported be light. Assessment day 1. Plan continue current care. Patient reports: Reports appetite normal, Reports voiding normally, Reports pain well controlled, Reports ambulating normally [place]: doing well Objective - Latest Vital Signs Latest vital signs: Vital Signs Temp Pulse Resp BP Pulse Ox 08/05/20 07:59 98.4 F 87 16 109/64 97 08/05/20 05:17 98.4 F 72 16 112/65 98 08/05/20 01:55 88 16 104/73 08/05/20 01:25 97.3 F L 83 16 120/71 08/05/20 00:55 89 16 118/69 08/05/20 00:40 87 16 110/67 08/05/20 00:25 82 16 111/71 08/05/20 00:10 84 16 107/66 08/04/20 23:55 84 16 108/55 08/04/20 23:40 99 16 112/61 08/04/20 12:20 96.9 F L 86 18 128/74 97 08/04/20 11:30 18 Intake and Output 08/04/20 08/05/20 08/05/20 22:59 06:59 14:59 Output Total 100 Balance -100 Output: Estimated Blood Loss 100 Other: # Voids 1 - Exam Lungs: bilateral: normal Chest: Normal S1, Normal S2 Extremities: Present: normal Abdomen: Present: normal appearance, soft Uterus: Present: normal, firm - Labs Labs: Abnormal Lab Results - Last 24 Hours (Table) 08/04/20 08/04/20 08/04/20 Range/Units 06:20 09:41 09:52 WBC 14.5 H (3.8-10.6) k/uL RBC 3.77 L (3.80-5.40) m/uL Hgb 11.0 L (11.4-16.0) gm/dL Hct (34.0-46.0) % Plt Count 591 H (150-450) k/uL Neutrophils # 11.7 H (1.3-7.7) k/uL Sodium (137-145) mmol/L Carbon Dioxide (22-30) mmol/L Creatinine (0.52-1.04) mg/dL ALT (4-34) U/L Alkaline Phosphatase (38-126) U/L Total Protein (6.3-8.2) g/dL Albumin (3.5-5.0) g/dL Urine Appearance Cloudy H (Clear) Urine Protein Trace H (Negative) Urine Ketones 4+ H (Negative) Ur Squamous Epith Cells 5 H (0-4) /hpf Urine Mucus Few H (None) /hpf Ur Amphetamines Screen Detected H (NotDetected) U Benzodiazepines Scrn Detected H (NotDetected) 08/04/20 08/04/20 08/05/20 Range/Units 11:05 11:05 07:46 WBC 13.1 H 13.9 H (3.8-10.6) k/uL RBC 3.09 L 3.28 L (3.80-5.40) m/uL Hgb 9.3 L D 9.7 L (11.4-16.0) gm/dL Hct 27.6 L 29.5 L (34.0-46.0) % Plt Count 470 H 491 H (150-450) k/uL Neutrophils # 10.3 H 10.8 H (1.3-7.7) k/uL Sodium 134 L (137-145) mmol/L Carbon Dioxide 21 L (22-30) mmol/L Creatinine 0.49 L (0.52-1.04) mg/dL ALT 35 H (4-34) U/L Alkaline Phosphatase 132 H (38-126) U/L Total Protein 5.5 L (6.3-8.2) g/dL Albumin 2.8 L (3.5-5.0) g/dL Urine Appearance (Clear) Urine Protein (Negative) Urine Ketones (Negative) Ur Squamous Epith Cells (0-4) /hpf Urine Mucus (None) /hpf Ur Amphetamines Screen (NotDetected) U Benzodiazepines Scrn (NotDetected)
[2020-08-05] MEDS ORDERED: PRENATAL VIT-IRON-FOLIC ACID 1 EACH CAP PO SCH (09:00)
[2020-08-05 09:14] VITALS: TEMP 98.8
[2020-08-05 13:58] VITALS: BP 117/69; PULSE 74; RESP 16
--- NOTE | 2020-08-05 16:28 | P.DS ---
Providers Date of admission: 08/04/20 11:35 Expected date of discharge: 08/05/20 Attending physician: Juan Devine Primary care physician: Stated None Hospital Course: Rain is doing well this afternoon and is requesting discharge home. Her baby is moved to special care nursery for observation but she is doing well with like to go home and take care of her other children. Discharge instructions were thoroughly reviewed and all questions were answered for her and prescription for [place] and Motrin for into the pharmacy no other changes from this morning. Discharged home in stable and satisfactory condition. 6 weeks. Patient Condition at Discharge: Good Plan - Discharge Summary New Discharge Prescriptions: New Ibuprofen [Motrin] 600 mg PO Q6HR PRN #30 tab PRN Reason: Pain HYDROcodone/APAP 5-325MG [[place] 5-325] 1 tab PO Q4HR PRN #30 tab PRN Reason: Pain No Action Pkl-Pygo-Gxpiu Acid [-U Capsule (formulary)] 1 cap PO DAILY Discharge Medication List Gyv-Esyx-Mbvou Acid [-U Capsule (formulary)] 1 cap PO DAILY 04/02/20 [History] HYDROcodone/APAP 5-325MG [[place] 5-325] 1 tab PO Q4HR PRN #30 tab 08/05/20 [Rx] Ibuprofen [Motrin] 600 mg PO Q6HR PRN #30 tab 08/05/20 [Rx] Follow up Appointment(s)/Referral(s): Juan Devine DO [Doctor of Osteopathic Medicine] - 6 Weeks Activity/Diet/Wound Care/Special Instructions: No heavy lifting, limit stairs and driving, and pelvic rest. If any high temperatures, heavy bleeding, or severe pain call my office Discharge Disposition: HOME SELF-CARE
== END 2020-08-05 17:00 | disposition home or self-care (01) | DRG 806 ==
LOC: FBPOP 05:55 → 4FBP 11:35
PROVIDERS: ADMIT Obstetrics & Gynecology; ATTEND Obstetrics & Gynecology
PROC: 00HU33Z Insertion of Infusion Device into Spinal Canal, Percutaneous Approach (ICD-10-PCS; principal; 2020-08-04)
PROC: 10E0XZZ Delivery of Products of Conception, External Approach (ICD-10-PCS; principal; 2020-08-04)
PROC: 3E0R3BZ Introduction of Anesthetic Agent into Spinal Canal, Percutaneous Approach (ICD-10-PCS; principal; 2020-08-04)
DX: O99.892 Other specified diseases and conditions complicating childbirth (principal); N13.30 Unspecified hydronephrosis; Z37.0 Single live birth; O99.334 Smoking (tobacco) complicating childbirth; F17.200 Nicotine dependence, unspecified, uncomplicated; Z3A.37 37 weeks gestation of pregnancy
CPT/HCPCS: 59025; 76770; 76815; 80053; 80306; 81001; 84443; 85025; 86850; 86900; 86901; 87808; 88307; 96360; 96361; 99214

== ENCOUNTER 2023-04-03 11:22 | Outpatient (CLI) | payer OTHER ==
[2023-04-03 13:06] LABS: Appearance,Urine Cloudy (Clear); Bacteria,Urine Rare /hpf; Bilirubin,Urine Negative (Negative); Blood,Urine Negative (Negative); Color,Urine Yellow; Glucose,Urine (UA) Negative (Negative); Ketones,Urine Negative (Negative); Leukocyte Esterase,Urine Negative (Negative); Mucus,Urine Many /hpf; Nitrite,Urine Negative (Negative); PH, Urine 6.5 (5.0-8.0); Protein,Urine Trace (Negative); RBC,Urine 1 /hpf (0-5); Specific Gravity,Urine 1.022 (1.001-1.035); Squamous Epithelial Cell,Urine 8 /hpf (0-4); Urobilinogen,Urine <2.0 mg/dL (<2.0); WBC,Urine 1 /hpf (0-5)
[2023-04-03 14:09] VITALS: BP 116/63; PULSE 89; RESP 18; TEMP 96.5
--- NOTE | 2023-04-26 10:39 | P.MSEPDOC ---
Presenting Problems - Arrival Data Date of Arrival on Unit: 04/03/23 Time of Arrival on Unit: 11:22 Mode of Transport: Wheelchair - Complaint OB-Reason for Admission/Chief Complaint: Pain Comment: constant lower back pain. Medical History - Information : 5 Para: 3 Term: 3 : 0 Abortions: Spontaneous or Elective: 1 Number of Living Children: 3 - Gestational Age Gestational Age by DAISY (wks/days): 23 Weeks and 2 Days Review of Systems - Review of Systems Constitutional: No problems Breast: No problems ENT: No problems Cardiovascular: No problems Respiratory: No problems Gastrointestinal: No problems Genitourinary: No problems Musculoskeletal: No problems Neurological: No problems Skin: No problems Vital Signs - Temperature Temperature: 96.5 F Temperature Source: Temporal Artery Scan - Pulse Right Pulse Rate: 89 Pulse Assessment Method: Pulse Oximetry - Respirations Respiratory Rate: 18 Oxygen Delivery Method: Room Air O2 Sat by Pulse Oximetry: 98 - Blood Pressure Right Arm Blood Pressure: 116/63 Blood Pressure Mean: 80 Blood Pressure Source: Automatic Cuff Medical Screen Scoring - Assessment - Baby A Baseline FHR: 145 Heart Rate - NICHD Category: Category I (Normal) Physician Notification - Physician Notified Physician Notified Date: 04/03/23 Physician Notified Time: 11:45 Physician: Jacky Villa Order Received: Yes (Discharge home with follow up instructions.) - Notification Comment Comment: Inital report given at 1145. UA results reviewed with physician at 1341 and dishcharge order recieved. Maternal Triage Index - Maternal Triage Index Presenting for scheduled procedure w/no complaint: No - Stat/Priority 1 Stat Priority 1: No - Urgent/Priority 2 Urgent Priority 2: No - Prompt/Priority 3 Prompt Priority 3: No - Non-Urgent/Priority 4 Non-Urgent Priority 4: Yes Criteria Met for Priority 4: constant lower back pain. Disposition - Disposition OB Disposition: Discharge to home Discharge Date: 04/03/23 Discharge Time: 13:45 I agree with the RN Medical Screening Exam: Yes Physician's MSE Comment: I have neither seen nor examined the patient. Case reviewed; plan agreed upon as documented in EMR&OBIX.: Yes Diagnosis: RELATED CONDITIONS, UNSPECIFIED, SECOND TRIMESTER
== END 2023-04-03 13:45 | disposition home or self-care (01) ==
LOC: FBPOP 11:22
PROVIDERS: ATTEND Obstetrics & Gynecology
DX: O26.892 Other specified pregnancy related conditions, second trimester (principal); M54.50 Low back pain, unspecified; O99.332 Smoking (tobacco) complicating pregnancy, second trimester; F17.200 Nicotine dependence, unspecified, uncomplicated; Z3A.23 23 weeks gestation of pregnancy
CPT/HCPCS: 81001; G0463; 99213

== ENCOUNTER 2023-05-20 18:17 | Emergency (ER) | payer OTHER ==
[2023-05-20] MEDS ORDERED: CEPHALEXIN 500 MG CAP PO STA (18:52)
[2023-05-20] MEDS ORDERED: CEPHALEXIN 500MG STARTER PACK 4 CAP BTL PO STA (18:52)
--- NOTE | 2023-05-20 18:53 | ED ---
Skin/Abscess/FB HPI - General Chief complaint: Skin/Abscess/Foreign Body Stated complaint: left leg Boil/pain Time Seen by Provider: 05/20/23 18:34 Source: patient, RN notes reviewed, old records reviewed Mode of arrival: ambulatory Limitations: no limitations - History of Present Illness Initial comments: This is a 32-year-old female to the emergency department for evaluation. Patient resents today for evaluation of blood tox abscess. Patient does have pain to her left buttocks, patient does admit to , occasional ingrown hairs. No recent shaving.. Patient's pain is significantly swollen with redness increasing MD complaint: abscess/boil -: days(s) Tetanus Up to Date: yes Location: buttocks, LLE Severity: moderate Severity scale (1-10): 4 Quality: aching Consistency: constant Improves with: none Worsens with: none Associated symptoms: denies other symptoms Treatments Prior to Arrival: none - Related Data Previous Rx's Medication Instructions Recorded Cephalexin [Keflex] 500 mg PO Q6HR #40 cap 05/20/23 Allergies Allergy/AdvReac Type Severity Reaction Status Date / Time No Known Allergies Allergy Verified 05/20/23 18:27 Review of Systems ROS Statement: Those systems with pertinent positive or pertinent negative responses have been documented in the HPI. ROS Other: All systems not noted in ROS Statement are negative. 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, freq kidney infections History of Any Multi-Drug Resistant Organisms: None Reported Past Surgical History: No Surgical Hx Reported Past Anesthesia/Blood Transfusion Reactions: No Reported Reaction Past Psychological History: Anxiety Smoking Status: Current every day smoker Past Alcohol Use History: None Reported Past Drug Use History: None Reported - Past Family History Father Family Medical History: No Reported History Mother Family Medical History: No Reported History General Exam Limitations: no limitations General appearance: alert, in no apparent distress Head exam: Present: atraumatic, normocephalic, normal inspection Eye exam: Present: normal appearance, PERRL, EOMI. Absent: scleral icterus, conjunctival injection, periorbital swelling ENT exam: Present: normal exam, mucous membranes moist Neck exam: Present: normal inspection. Absent: tenderness, meningismus, lymphadenopathy Respiratory exam: Present: normal lung sounds bilaterally. Absent: respiratory distress, wheezes, rales, rhonchi, stridor Cardiovascular Exam: Present: regular rate, normal rhythm, normal heart sounds. Absent: systolic murmur, diastolic murmur, rubs, gallop, clicks GI/Abdominal exam: Present: soft, tenderness (Left thigh, blood tox abscess), normal bowel sounds. Absent: distended, guarding, rebound, rigid Extremities exam: Present: normal inspection, full ROM, normal capillary refill. Absent: tenderness, pedal edema, joint swelling, calf tenderness Back exam: Present: normal inspection Neurological exam: Present: alert, oriented X3, CN II-XII intact Psychiatric exam: Present: normal affect, normal mood Skin exam: Present: warm, dry, intact, normal color. Absent: rash Course Vital Signs 05/20/23 05/20/23 18:23 19:04 Temperature 98.6 F 98.1 F Pulse Rate 112 H 96 Respiratory 18 18 Rate Blood Pressure 123/76 136/80 O2 Sat by Pulse 98 99 Oximetry - Reevaluation(s) Reevaluation #1: 05/20/23 Medical records reviewed Reevaluation #2: 05/20/23 Patient symptoms are improved pain is improved Reevaluation #3: 05/20/23 Patient informed results and questions answered Reevaluation #4: Was pt. sent in by a medical professional or institution ([facility], TRAUMA DOCTOR, urgent care, hospital, or residential...) When possible be specific @ -no Did you speak to anyone other than the patient for history (EMS, parent, family, police, friend...)? What history was obtained from this source @ -no Did you review nursing and triage notes (agree or disagree)? Why? @ -agree Are old charts reviewed (outside hosp., previous admission, EMS record, old EKG, old radiological studies, urgent care reports/EKG's, residential records)? Report findings @ -yes Differential Diagnosis (chest pain, altered mental status, abdominal pain women, abdominal pain men, vaginal bleeding, weakness, fever, dyspnea, syncope, headache, dizziness, GI bleed, back pain, seizure, CVA, palpatations, mental health, musculoskeletal)? @ -prior EKG interpreted by me (3pts min.). @ -no X-rays interpreted by me (1pt min.). @ -yno CT interpreted by me (1pt min.). @ -no U/S interpreted by me (1pt. min.). @ -no What testing was considered but not performed or refused? (CT, X-rays, U/S, labs)? Why? @ -none What meds were considered but not given or refused? Why? @ -none Did you discuss the management of the patient with other professionals (professionals i.e. Dr., PA, TRAUMA DOCTOR, lab, RT, psych nurse, social media sr strategy manager, application manager, teacher, president and chief executive officer, case making machine operator)? Give summary @ -no Was smoking cessation discussed for >3mins.? @ -no Was critical care preformed (if so, how long)? @ -no Were there social determinants of health that impacted care today? How? (Homelessness, low income, unemployed, alcoholism, drug addiction, transportation, low edu. Level, literacy, decrease access to med. care, fdc, rehab)? @ -none Was there de-escalation of care discussed even if they declined (Discuss DNR or withdrawal of care, Hospice)? DNR status @ -no What co-morbidities impacted this encounter? (DM, HTN, Smoking, COPD, CAD, Cancer, CVA, ARF, Chemo, Hep., AIDS, mental health diagnosis, sleep apnea, morbid obesity)? @ -none Was patient admitted / discharged? Hospital course, mention meds given and route, prescriptions, significant lab abnormalities, going to OR and other pertinent info. @ - 32 female with abscess to left leg which is incised and drained here in the emergency department, patient placed on antibiotics and can be discharged home Discharge Undiagnosed new problem with uncertain prognosis? @ -no Drug Therapy requiring intensive monitoring for toxicity (Heparin, Nitro, Insulin, Cardizem)? @ -no Were any procedures done? @ -InD Diagnosis/symptom? @ -Left leg abscess Acute, or Chronic, or Acute on Chronic? @ -Acute Uncomplicated (without systemic symptoms) or Complicated (systemic symptoms)? @ -Complicated Side effects of treatment? @ -no Exacerbation, Progression, or Severe Exacerbation? @ -exacerbation Poses a threat to life or bodily function? How? (Chest pain, [place], [place], pneumonia, PE, COPD, DKA, ARF, appy, cholecystitis, CVA, Diverticulitis, Homicidal, Suicidal, threat to staff... and all critical care pts) @ -no Procedures - Incision & Drainage Consent Obtained: verbal consent Site: buttock, lower extremity Anesthetic Used: lidocaine 1%, with epi I&D Cleaning Method: Chloroprep, Alcohol Wipe Sterile Field Used?: Yes Scalpel Used: #11 Ultrasound used: No Needle Aspiration Performed?: No Irrigation Performed?: No I&D Drainage Obtained: Pus Loculation Noted: probing needed to break Insertion of drain: No Culture Obtained?: No Complications: pain, bleeding Patient Tolerated Procedure: well Medical Decision Making - Medical Decision Making 32 female to the emergency department for abscess of the leg and Botox. Abscesses incised and drained here in the ER, patient placed on antibiotics and can be discharged home Disposition Clinical Impression: Left buttock abscess Disposition: HOME SELF-CARE Instructions (If sedation given, give patient instructions): Abscess Incision and Drainage (ED), Abscess (ED) Prescriptions: Cephalexin [Keflex] 500 mg PO Q6HR #40 cap Is patient prescribed a controlled substance at d/c from ED?: No Referrals: Christoph Campbell MD [Primary Care Provider] - 1-2 days Time of Disposition: 19:00
[2023-05-20 19:12] VITALS: BP 136/80; PULSE 96; RESP 18; TEMP 98.1
== END 2023-05-20 19:07 | disposition home or self-care (01) ==
LOC: EC 18:17
DX: L02.31 Cutaneous abscess of buttock (principal); F17.200 Nicotine dependence, unspecified, uncomplicated; Z86.59 Personal history of other mental and behavioral disorders
CPT/HCPCS: 10060; 99283

== ENCOUNTER 2023-06-19 18:20 | Outpatient (CLI) | payer OTHER ==
[2023-06-19 19:39] LABS: Appearance,Urine Cloudy (Clear); Bacteria,Urine Occasional /hpf; Bilirubin,Urine Negative (Negative); Blood,Urine Negative (Negative); Color,Urine Yellow; Glucose,Urine (UA) Negative (Negative); Ketones,Urine Negative (Negative); Leukocyte Esterase,Urine Trace (Negative); Mucus,Urine Moderate /hpf; Nitrite,Urine Negative (Negative); Protein,Urine 1+ (Negative); Specific Gravity,Urine 1.025 (1.001-1.035); Squamous Epithelial Cell,Urine 6 /hpf (0-4); Urobilinogen,Urine <2.0 mg/dL (<2.0); WBC,Urine 3 /hpf (0-5)
[2023-06-19 21:03] VITALS: BP 123/69; PULSE 99; RESP 16; TEMP 97.2
--- NOTE | 2023-07-22 16:30 | P.MSEPDOC ---
Presenting Problems - Arrival Data Date of Arrival on Unit: 06/19/23 Time of Arrival on Unit: 18:20 Mode of Transport: Wheelchair - Complaint OB-Reason for Admission/Chief Complaint: Pain Comment: pt. present to triage due to dull ache on right side, increase swelling in BLE, and "exteme" night sweats, all have been happening the past 3 days Medical History - Information : 5 Para: 3 Term: 2 : 1 Abortions: Spontaneous or Elective: 1 Number of Living Children: 3 - Gestational Age Gestational Age by DAISY (wks/days): 34 Weeks and 2 Days Review of Systems - Review of Systems Constitutional: No problems Breast: No problems ENT: No problems Cardiovascular: No problems Respiratory: No problems Gastrointestinal: No problems Genitourinary: No problems Musculoskeletal: No problems Neurological: No problems Skin: No problems Vital Signs - Temperature Temperature: 97.2 F Temperature Source: Temporal Artery Scan - Pulse Pulse Oximetery Pulse Rate: 99 Pulse Assessment Method: Automatic Cuff - Respirations Respiratory Rate: 16 Oxygen Delivery Method: Room Air O2 Sat by Pulse Oximetry: 97 - Blood Pressure Right Arm Blood Pressure: 123/69 Blood Pressure Mean: 87 Blood Pressure Source: Automatic Cuff Medical Screen Scoring - Assessment - Baby A Baseline FHR: 130 Heart Rate - NICHD Category: Category I (Normal) NST: Reactive Physician Notification - Physician Notified Physician Notified Date: 06/19/23 Physician Notified Time: 20:03 Physician: Laurence Mohr New Order Received: Yes - Notification Comment Comment: urine reviewed, orders to discharge pt. home to follow up with Dr. Buchanan pt. has an apt. [facility] for the , Maternal Triage Index - Maternal Triage Index Presenting for scheduled procedure w/no complaint: No - Stat/Priority 1 Stat Priority 1: No - Urgent/Priority 2 Urgent Priority 2: Yes Provider Notified: Laurence Mohr Provider Notified Time: 18:56 Criteria Met for Priority 2: urinalysis ordered Disposition - Disposition OB Disposition: Discharge to home Discharge Date: 06/19/23 Discharge Time: 20:14 I agree with the RN Medical Screening Exam: Yes Case reviewed; plan agreed upon as documented in EMR&OBIX.: Yes Diagnosis: RELATED CONDITIONS, UNSPECIFIED, THIRD TRIMESTER
== END 2023-06-19 20:03 | disposition home or self-care (01) ==
LOC: FBPOP 18:20
PROVIDERS: ATTEND Obstetrics & Gynecology Obstetrics
DX: O26.893 Other specified pregnancy related conditions, third trimester (principal); R10.31 Right lower quadrant pain; O99.333 Smoking (tobacco) complicating pregnancy, third trimester; F17.200 Nicotine dependence, unspecified, uncomplicated; Z3A.34 34 weeks gestation of pregnancy
CPT/HCPCS: 59025; 81001; G0463; 99213

== ENCOUNTER 2023-07-01 12:10 | Outpatient (CLI) | payer OTHER ==
[2023-07-01 12:57] LABS: Appearance,Urine Clear (Clear); Bacteria,Urine Rare /hpf; Bilirubin,Urine 1+ (Negative); Blood,Urine Negative (Negative); Color,Urine Yellow; Glucose,Urine (UA) Negative (Negative); Ketones,Urine Negative (Negative); Leukocyte Esterase,Urine Small (Negative); Mucus,Urine Few /hpf; Nitrite,Urine Negative (Negative); PH, Urine 8.5 (5.0-8.0); Protein,Urine 2+ (Negative); RBC,Urine 1 /hpf (0-5); Specific Gravity,Urine 1.028 (1.001-1.035); Squamous Epithelial Cell,Urine 9 /hpf (0-4); WBC,Urine 2 /hpf (0-5)
[2023-07-01] MEDS ORDERED: FAMOTIDINE 20 MG/2 ML VIAL IV STA (13:12)
[2023-07-01] MEDS ORDERED: ONDANSETRON 4 MG/2 ML VIAL IVP STA (13:12)
[2023-07-01] MEDS ORDERED: LACTATED RINGERS 1,000 ML IV ONE (13:15)
[2023-07-01 14:13] VITALS: BP 129/76; PULSE 98; RESP 18; TEMP 98.3
--- NOTE | 2023-07-03 17:29 | P.MSEPDOC ---
Presenting Problems - Arrival Data Date of Arrival on Unit: 07/01/23 Time of Arrival on Unit: 12:10 Mode of Transport: Ambulatory - Complaint OB-Reason for Admission/Chief Complaint: Acute Nausea/Vomiting, Vaginal Bleeding Comment: Pt c/o emesis x 3 days - significant in this last month of - on reglan per her ob, swelling, vag mucous/streaky bleeding after vomiting today Medical History - Information : 5 Para: 3 Term: 3 : 0 Abortions: Spontaneous or Elective: 1 Number of Living Children: 3 - Gestational Age Gestational Age by DAISY (wks/days): 36 Weeks and 0 Days - History Complications: Prior Comment: vag delivery at 36 weeks Review of Systems - Review of Systems Constitutional: No problems Breast: No problems ENT: No problems Cardiovascular: No problems Respiratory: No problems Gastrointestinal: No problems Genitourinary: No problems Musculoskeletal: No problems Neurological: No problems Skin: No problems Vital Signs - Temperature Temperature: 98.3 F Temperature Source: Oral - Pulse Right Sitting Brachial Pulse Rate: 98 Pulse Assessment Method: Automatic Cuff - Respirations Respiratory Rate: 18 Oxygen Delivery Method: Room Air O2 Sat by Pulse Oximetry: 98 - Blood Pressure Right Arm Sitting Blood Pressure: 129/76 Blood Pressure Mean: 93 Blood Pressure Source: Automatic Cuff Medical Screen Scoring - Cervical Exam Dilation (cm): 1 Effacement (%): 50 Station: -3 - Assessment - Baby A Baseline FHR: 130 Heart Rate - NICHD Category: Category I (Normal) NST: Reactive Physician Notification - Physician Notified Physician Notified Date: 07/01/23 Physician Notified Time: 13:08 Physician: Martha Mcgill Order Received: Yes - Notification Comment Comment: Dc home after fluids and meds. Pt feeling much better. Pt to rest & increase po fluids. Follow up with her own OB as scheduled. Maternal Triage Index - Maternal Triage Index Presenting for scheduled procedure w/no complaint: No - Stat/Priority 1 Stat Priority 1: No - Urgent/Priority 2 Urgent Priority 2: No - Prompt/Priority 3 Prompt Priority 3: No - Non-Urgent/Priority 4 Non-Urgent Priority 4: Yes Criteria Met for Priority 4: amnisure neg, cx no change today, no bleeding or leaking on exam, irreg cx, vitals WNL, reactive NST. Hydration/pepcid/zofran for nausea/vomiting. No emesis in triage today. Disposition - Disposition OB Disposition: Discharge to home Discharge Date: 07/01/23 Discharge Time: 14:05 I agree with the RN Medical Screening Exam: Yes Physician's MSE Comment: I have neither seen nor examined the patient. Case reviewed; plan agreed upon as documented in EMR&OBIX.: Yes Diagnosis: RELATED CONDITIONS, UNSPECIFIED, THIRD TRIMESTER
== END 2023-07-01 14:05 | disposition home or self-care (01) ==
LOC: FBPOP 12:10
PROVIDERS: ATTEND Obstetrics & Gynecology
DX: O21.1 Hyperemesis gravidarum with metabolic disturbance (principal); O26.893 Other specified pregnancy related conditions, third trimester; N89.8 Other specified noninflammatory disorders of vagina; O99.333 Smoking (tobacco) complicating pregnancy, third trimester; F17.200 Nicotine dependence, unspecified, uncomplicated; Z3A.36 36 weeks gestation of pregnancy
CPT/HCPCS: 59025; 96374; 96375; 84112; 81001; G0463; J2405; J3490; 99214

== ENCOUNTER 2023-07-15 15:55 | Outpatient (CLI) | payer OTHER ==
[2023-07-15 17:11] VITALS: BP 133/78; PULSE 92; RESP 16; TEMP 97.9
--- NOTE | 2023-07-16 06:57 | P.MSEPDOC ---
Presenting Problems - Arrival Data Date of Arrival on Unit: 07/15/23 Time of Arrival on Unit: 15:55 Mode of Transport: Ambulatory - Complaint OB-Reason for Admission/Chief Complaint: Possible Onset of Labor Medical History - Information : 5 Para: 3 Term: 2 : 1 Abortions: Spontaneous or Elective: 1 Number of Living Children: 3 - Gestational Age Gestational Age by DAISY (wks/days): 38 Weeks and 0 Days Review of Systems - Review of Systems Constitutional: No problems Breast: No problems ENT: No problems Cardiovascular: No problems Respiratory: No problems Gastrointestinal: No problems Genitourinary: No problems Musculoskeletal: No problems Neurological: No problems Skin: No problems Vital Signs - Temperature Temperature: 97.9 F Temperature Source: Temporal Artery Scan - Pulse Right Brachial Pulse Rate: 92 Pulse Assessment Method: Automatic Cuff - Respirations Respiratory Rate: 16 Oxygen Delivery Method: Room Air O2 Sat by Pulse Oximetry: 100 - Blood Pressure Right Arm Blood Pressure: 133/78 Blood Pressure Mean: 96 Blood Pressure Source: Automatic Cuff Medical Screen Scoring - Cervical Exam Dilation (cm): 3 Effacement (%): 80 Station: -3 Membranes: Intact - Assessment - Baby A Baseline FHR: 140 Heart Rate - NICHD Category: Category I (Normal) NST: Reactive Physician Notification - Physician Notified Physician Notified Date: 07/15/23 Physician Notified Time: 16:32 Physician: Tre Batista Order Received: Yes - Notification Comment Comment: Dr. Batista in dept. Report given on pt c/o, VS readback. FHT strip reviewed by Orders recieved to d/c pt to home. Maternal Triage Index - Non-Urgent/Priority 4 Non-Urgent Priority 4: Yes Criteria Met for Priority 4: Pt c/o of shooting pain on right side, swelling, and sweating for 3 days. Disposition - Disposition OB Disposition: Discharge to home Discharge Date: 07/15/23 Discharge Time: 16:40 I agree with the RN Medical Screening Exam: Yes Case reviewed; plan agreed upon as documented in EMR&OBIX.: Yes Diagnosis: FALSE LABOR AT OR AFTER 37 COMPLETED WEEKS OF GESTATION (This patient is a 32-year-old multiparous patient who's had care elsewhere who presented to our labor and delivery with concerns with back pain and possible contractions. Patient states that she did not call her physician or go to the facility where her physician practices due to proximity. Patient's heart tones are category 1 and she is not having any regular contractions. At this point there is no evidence of labor or maternal compromise patient's felt to be stable for discharge home follow up with her primary founder and ceo. She has an appointment on . I did inform her that she is certainly welcome to come to our facility for care however we do not have any records on her is her best interest to continue care at the facility where her primary founder and ceo has privileges.)
== END 2023-07-15 16:40 | disposition home or self-care (01) ==
LOC: FBPOP 15:55
PROVIDERS: ATTEND Obstetrics & Gynecology
DX: O47.1 False labor at or after 37 completed weeks of gestation (principal); O99.333 Smoking (tobacco) complicating pregnancy, third trimester; F17.200 Nicotine dependence, unspecified, uncomplicated; Z3A.38 38 weeks gestation of pregnancy
CPT/HCPCS: 59025; G0463; 99213

== ENCOUNTER 2023-12-24 18:02 | Emergency (ER) | payer OTHER ==
[2023-12-24 18:09] VITALS: RESP 18
--- NOTE | 2023-12-24 19:36 | ED ---
Nausea/Vomiting/Diarrhea HPI - General Chief complaint: Nausea/Vomiting/Diarrhea Stated complaint: 10 wks preg/vomitting/migraine/cramps Time Seen by Provider: 12/24/23 19:34 Source: patient, RN notes reviewed Mode of arrival: ambulatory Limitations: no limitations - History of Present Illness Initial comments: 43-year-old female G6, P5 approximately 10 weeks gestation presenting to the ER with a chief complaint of right-sided abdominal cramping. She states 3 days ago she started to experience a migraine after an argument which has been persistent. She states she was also experiencing abdominal cramping which has increased in intensity to today making her extremely nauseous. She also reports spotting for the past couple of days. She does admit to an episode of diarrhea earlier today. Patient denies any fevers, chest pain, shortness of breath, urinary complaints or peripheral edema. - Related Data Home Medications Medication Instructions Recorded Confirmed Cariprazine HCl [Vraylar] 1.5 mg PO DAILY 06/19/23 07/15/23 Venlafaxine HCl ER [Effexor XR] 150 mg PO DAILY 06/19/23 07/15/23 Metoclopramide [Reglan] 5 mg PO DAILY PRN 07/01/23 07/15/23 Allergies Allergy/AdvReac Type Severity Reaction Status Date / Time No Known Allergies Allergy Verified 12/24/23 18:09 Review of Systems ROS Statement: Those systems with pertinent positive or pertinent negative responses have been documented in the HPI. ROS Other: All systems not noted in ROS Statement are negative. 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, freq kidney infections History of Any Multi-Drug Resistant Organisms: None Reported Past Surgical History: No Surgical Hx Reported Past Anesthesia/Blood Transfusion Reactions: No Reported Reaction Past Psychological History: Anxiety Smoking Status: Vaper - Past Family History Father Family Medical History: No Reported History Mother Family Medical History: No Reported History General Exam Limitations: no limitations General appearance: alert, in no apparent distress Head exam: Present: atraumatic, normocephalic, normal inspection Eye exam: Present: normal appearance, PERRL, EOMI. Absent: scleral icterus, conjunctival injection, periorbital swelling Pupils: Present: normal accommodation ENT exam: Present: normal exam, normal oropharynx, mucous membranes moist Respiratory exam: Present: normal lung sounds bilaterally. Absent: respiratory distress, wheezes, rales, rhonchi, stridor Cardiovascular Exam: Present: regular rate, normal rhythm, normal heart sounds. Absent: systolic murmur, diastolic murmur, rubs, gallop, clicks GI/Abdominal exam: Present: soft, tenderness (Right lower quadrant), normal bowel sounds Extremities exam: Present: normal inspection, full ROM, normal capillary refill. Absent: tenderness, pedal edema, joint swelling, calf tenderness Skin exam: Present: warm, dry, intact, normal color. Absent: rash Course Vital Signs 12/24/23 12/24/23 12/24/23 18:06 20:08 21:06 Temperature 98 F Pulse Rate 91 83 98 Respiratory 18 18 18 Rate Blood Pressure 105/69 109/80 115/79 O2 Sat by Pulse 98 99 100 Oximetry 12/24/23 21:38 Temperature 98.4 F Pulse Rate 992 H Respiratory 18 Rate Blood Pressure 120/73 O2 Sat by Pulse 99 Oximetry Medical Decision Making - Medical Decision Making Was pt. sent in by a medical professional or institution (, PA, REFRIGERATOR REPAIRMAN, urgent care, hospital, or intermediate...) When possible be specific @ -No Did you speak to anyone other than the patient for history (EMS, parent, family, police, friend...)? What history was obtained from this source @ -No Did you review nursing and triage notes (agree or disagree)? Why? @ -I reviewed and agree with nursing and triage notes Were old charts reviewed (outside hosp., previous admission, EMS record, old EKG, old radiological studies, urgent care reports/EKG's, intermediate records)? Report findings @ -No old charts were reviewed Differential Diagnosis (chest pain, altered mental status, abdominal pain women, abdominal pain men, vaginal bleeding, weakness, fever, dyspnea, syncope, headache, dizziness, GI bleed, back pain, seizure, CVA, palpatations, mental health, musculoskeletal)? @ -Differential Abdominal Pain Women: Appendicitis, Cholecystitis, diverticulosis, ischemic bowel, pancreatitis, hepatitis, UTI, gastroenteritis, AAA, incarcerated hernia, bowel obstruction, constipation, inflammatory bowel, hepatitis, peptic ulcer disease, splenic infarction, perforated viscus, vulvitis, ovarian torsion, PID, kidney stone, placenta abruption, this is not meant to be an all-inclusive list EKG interpreted by me (3pts min.). @ -None X-rays interpreted by me (1pt min.). @ -None done CT interpreted by me (1pt min.). @ -None done U/S interpreted by me (1pt. min.). @ - ultrasound significant for a single IUP gestational age 9 weeks 2 days. Heart rate 166. There is a small subchorionic hemorrhage. What testing was considered but not performed or refused? (CT, X-rays, U/S, labs)? Why? @ -None What meds were considered but not given or refused? Why? @ -None Did you discuss the management of the patient with other professionals (professionals i.e. , PA, REFRIGERATOR REPAIRMAN, lab, RT, psych nurse, social work professor, flatcar whacker, teacher, senior major gifts officer, comp field case manager)? Give summary @ -No Was smoking cessation discussed for >3mins.? @ -No Was critical care preformed (if so, how long)? @ -No Were there social determinants of health that impacted care today? How? (Homelessness, low income, unemployed, alcoholism, drug addiction, transportation, low edu. Level, literacy, decrease access to med. care, fci, rehab)? @ -No Was there de-escalation of care discussed even if they declined (Discuss DNR or withdrawal of care, Hospice)? DNR status @ -No What co-morbidities impacted this encounter? (DM, HTN, Smoking, COPD, CAD, Cancer, CVA, ARF, Chemo, Hep., AIDS, mental health diagnosis, sleep apnea, morbid obesity)? @ - Was patient admitted / discharged? Hospital course, mention meds given and route, prescriptions, significant lab abnormalities, going to OR and other pertinent info. @ -Discharge. 33-year-old female presented to the ER with a chief complaint of right lower quadrant abdominal pain. History and physical exam completed. Vitals stable. Patient in no signs of acute distress and nontoxic- appearing. Focal right lower quadrant abdominal tenderness. No acute neurological findings on exam concerning of intracranial process at this time. Laboratory studies obtained remarkable for a hemoglobin of 10.9 which appears to be chronic in nature. CMP unimpressive. Serum hCG 57,189. Urinalysis without evidence of infection. ultrasound remarkable for a small subchorionic hemorrhage with a single live IUP gestational age 9 weeks 2 days with a heart rate of 166. Patient received IV fluids, Toradol, morphine and Zofran for symptom control in the ER. Upon reevaluation, patient resting comfortably in exam room reporting improved pain. Patient's blood type O+ and is not requiring Rhogam. Results discussed with patient, all questions answered. Advise close follow-up with PCP. Strict return parameters discussed. Patient discharged stable condition. Patient verbally expressed understanding and agreement with c are plan. Case discussed with ED attending, Dr. Danielle. Undiagnosed new problem with uncertain prognosis? @ -No Drug Therapy requiring intensive monitoring for toxicity (Heparin, Nitro, Insulin, Cardizem)? @ -No Were any procedures done? @ -No Diagnosis/symptom? @ -Threatened Acute, or Chronic, or Acute on Chronic? @ -Acute Uncomplicated (without systemic symptoms) or Complicated (systemic symptoms)? @ -Uncomplicated Side effects of treatment? @ -No Exacerbation, Progression, or Severe Exacerbation? @ -No Poses a threat to life or bodily function? How? (Chest pain, [place], CA, pneumonia, PE, COPD, DKA, ARF, appy, cholecystitis, CVA, Diverticulitis, Homicidal, Suic idal, threat to staff... and all critical care pts) @ -No - Lab Data Result diagrams: 12/24/23 19:35 12/24/23 19:35 Lab Results 12/24/23 12/24/23 12/24/23 Range/Units 19:35 19:35 19:35 WBC 6.5 (3.8-10.6) k/uL RBC 4.13 (3.80-5.40) m/uL Hgb 10.9 L (11.4-16.0) gm/dL Hct 34.9 (34.0-46.0) % MCV 84.4 (80.0-100.0) fL MCH 26.4 (25.0-35.0) pg MCHC 31.3 (31.0-37.0) g/dL RDW 15.1 (11.5-15.5) % Plt Count 415 (150-450) k/uL MPV 9.1 Neutrophils % 60 % Lymphocytes % 29 % Monocytes % 8 % Eosinophils % 1 % Basophils % 1 % Neutrophils # 3.9 (1.3-7.7) k/uL Lymphocytes # 1.9 (1.0-4.8) k/uL Monocytes # 0.5 (0-1.0) k/uL Eosinophils # 0.1 (0-0.7) k/uL Basophils # 0.0 (0-0.2) k/uL Sodium 134 L (137-145) mmol/L Potassium 4.6 (3.5-5.1) mmol/L Chloride 105 (98-107) mmol/L Carbon Dioxide 23 (22-30) mmol/L Anion Gap 6 mmol/L BUN 12 (7-17) mg/dL Creatinine 0.45 L (0.52-1.04) mg/dL Est GFR (CKD-EPI)AfAm >90 (>60 ml/min/1.73 sqM) Est GFR (CKD-EPI)NonAf >90 (>60 ml/min/1.73 sqM) Glucose 85 (74-99) mg/dL Calcium 8.9 (8.4-10.2) mg/dL Total Bilirubin 0.4 (0.2-1.3) mg/dL AST 24 (14-36) U/L ALT 16 (4-34) U/L Alkaline Phosphatase 66 (38-126) U/L Total Protein 6.6 (6.3-8.2) g/dL Albumin 4.1 (3.5-5.0) g/dL HCG, Quant 96720.8 mIU/mL Urine Color Yellow Urine Appearance Cloudy H (Clear) Urine pH 6.0 (5.0-8.0) Ur Specific [place] 1.030 (1.001-1.035) Urine Protein Negative (Negative) Urine Glucose (UA) Negative (Negative) Urine Ketones Negative (Negative) Urine Blood Negative (Negative) Urine Nitrite Negative (Negative) Urine Bilirubin Negative (Negative) Urine Urobilinogen <2.0 (<2.0) mg/dL Ur Leukocyte Esterase Negative (Negative) Urine RBC 2 (0-5) /hpf Urine WBC 2 (0-5) /hpf Ur Squamous Epith Cells 12 H (0-4) /hpf Hyaline Casts 1 (0-2) /lpf Urine Mucus Occasional H (None) /hpf Blood Type Blood Type Recheck Bld Type Recheck Status 12/24/23 Range/Units 19:35 WBC (3.8-10.6) k/uL RBC (3.80-5.40) m/uL Hgb (11.4-16.0) gm/dL Hct (34.0-46.0) % MCV (80.0-100.0) fL MCH (25.0-35.0) pg MCHC (31.0-37.0) g/dL RDW (11.5-15.5) % Plt Count (150-450) k/uL MPV Neutrophils % % Lymphocytes % % Monocytes % % Eosinophils % % Basophils % % Neutrophils # (1.3-7.7) k/uL Lymphocytes # (1.0-4.8) k/uL Monocytes # (0-1.0) k/uL Eosinophils # (0-0.7) k/uL Basophils # (0-0.2) k/uL Sodium (137-145) mmol/L Potassium (3.5-5.1) mmol/L Chloride (98-107) mmol/L Carbon Dioxide (22-30) mmol/L Anion Gap mmol/L BUN (7-17) mg/dL Creatinine (0.52-1.04) mg/dL Est GFR (CKD-EPI)AfAm (>60 ml/min/1.73 sqM) Est GFR (CKD-EPI)NonAf (>60 ml/min/1.73 sqM) Glucose (74-99) mg/dL Calcium (8.4-10.2) mg/dL Total Bilirubin (0.2-1.3) mg/dL AST (14-36) U/L ALT (4-34) U/L Alkaline Phosphatase (38-126) U/L Total Protein (6.3-8.2) g/dL Albumin (3.5-5.0) g/dL HCG, Quant mIU/mL Urine Color Urine Appearance (Clear) Urine pH (5.0-8.0) Ur Specific [place] (1.001-1.035) Urine Protein (Negative) Urine Glucose (UA) (Negative) Urine Ketones (Negative) Urine Blood (Negative) Urine Nitrite (Negative) Urine Bilirubin (Negative) Urine Urobilinogen (<2.0) mg/dL Ur Leukocyte Esterase (Negative) Urine RBC (0-5) /hpf Urine WBC (0-5) /hpf Ur Squamous Epith Cells (0-4) /hpf Hyaline Casts (0-2) /lpf Urine Mucus (None) /hpf Blood Type O Positive Blood Type Recheck O Pos Bld Type Recheck Status No - Radiology Data Radiology results: report reviewed, image reviewed Disposition Clinical Impression: Threatened Disposition: HOME SELF-CARE Condition: Stable Instructions (If sedation given, give patient instructions): Threatened Miscarriage (ED) Additional Instructions: Please follow-up with DIRECTOR PRIVATE in the next couple days. Return to the ER for any new or worsening concerns. Is patient prescribed a controlled substance at d/c from ED?: No Referrals: Christoph Campbell MD [Primary Care Provider] - 1-2 days Laurence Mohr DO [Doctor of Osteopathic Medicine] - 1-2 days Time of Disposition: 21:31
[2023-12-24] MEDS: ACETAMINOPHEN TAB 325 MG TAB PO STA (19:42)
[2023-12-24] MEDS: ONDANSETRON 4 MG/2 ML VIAL IVP STA (19:42)
[2023-12-24] MEDS: SODIUM CHLORIDE 0.9% 1,000 ML IV STA (19:43)
[2023-12-24 20:22] LABS: ALT 16 U/L (4-34); AST 24 U/L (14-36); African American GFR (CKD) >90 (>60 ml/min/1.73 sqM); Albumin 4.1 g/dL (3.5-5.0); Alkaline Phosphatase 66 U/L (38-126); Anion Gap 6 mmol/L; Blood Urea Nitrogen 12 mg/dL (7-17); Calcium 8.9 mg/dL (8.4-10.2); Carbon Dioxide 23 mmol/L (22-30); Chloride 105 mmol/L (98-107); Glucose 85 mg/dL (74-99); Non-African American GFR(CKD) >90 (>60 ml/min/1.73 sqM); Potassium 4.6 mmol/L (3.5-5.1); Sodium 134 mmol/L (137-145); Total Bilirubin 0.4 mg/dL (0.2-1.3); Total Protein 6.6 g/dL (6.3-8.2)
[2023-12-24 20:47] LABS: Appearance,Urine Cloudy (Clear); Bilirubin,Urine Negative (Negative); Blood,Urine Negative (Negative); Color,Urine Yellow; Glucose,Urine (UA) Negative (Negative); Hyaline Casts,Urine 1 /lpf (0-2); Ketones,Urine Negative (Negative); Leukocyte Esterase,Urine Negative (Negative); Mucus,Urine Occasional /hpf; Nitrite,Urine Negative (Negative); Protein,Urine Negative (Negative); RBC,Urine 2 /hpf (0-5); Squamous Epithelial Cell,Urine 12 /hpf (0-4); Urobilinogen,Urine <2.0 mg/dL (<2.0); WBC,Urine 2 /hpf (0-5)
[2023-12-24 20:53] LABS: Basophils % (A) 1 %; Eosinophils # (A) 0.1 k/uL (0-0.7); Eosinophils % (A) 1 %; HCT 34.9 % (34.0-46.0); HGB 10.9 gm/dL (11.4-16.0); Lymphocytes # (A) 1.9 k/uL (1.0-4.8); Lymphocytes % (A) 29 %; MCH 26.4 pg (25.0-35.0); MCHC 31.3 g/dL (31.0-37.0); MCV 84.4 fL (80.0-100.0); Mean Platelet Volume 9.1; Monocytes # (A) 0.5 k/uL (0-1.0); Monocytes % (A) 8 %; Neutrophils # (A) 3.9 k/uL (1.3-7.7); Neutrophils % (A) 60 %; Platelet Count 415 k/uL (150-450); RBC 4.13 m/uL (3.80-5.40); RDW 15.1 % (11.5-15.5); WBC 6.5 k/uL (3.8-10.6)
--- NOTE | 2023-12-24 20:56 | US ---
EXAMINATION TYPE: Transabdominal DATE OF EXAM: 12/24/2023 8:18 PM COMPARISON: NONE CLINICAL INDICATION: Female, 33 years old with history of abd pain and spotting; Patient states that she has right sided pain. Patient had ultrasound done yesterday at her OB. EXAM PERFORMED: Transabdominal (TA) EXAM MEASUREMENTS: GESTATIONAL AGE / DATING Physician Established: Not yet established Dates by LMP: (10 weeks/1 days) EDC: 07/20/2024 Dates by First Scan: No previous this is first scan at this facility Dates by Current Scan for: (9 weeks/2 days) EDC: 07/26/2024 MATERNAL ANATOMY Uterus: 11.0 x 6.0 x 8.0cm. Appears WNL as best seen Right Ovary: 2.6 x 2.0 x 2.2. Appears WNL as best seen Left Ovary: 2.4 x 2.1 x 2.2. Appears WNL as best seen Post CDS / Adnexa: Obscured by overlying bowel Presence of free fluid: No Presence of corpus luteal cyst: Not visualized today Presence of subchorionic bleed: Yes, anechoic area to the right of the gestational sac that measures 1.6 x 0.5 x 0.4 GESTATION / SURVEY CRL: 2.5 (9 weeks/2 days) Yolk Sac (normal less than 6mm): 3mm Heart Rate: 166 bpm Rhythm: Normal IUP: Viable IUP Date of LMP: 10/14/2023 Beta HcG (if available): Not available at this time IMPRESSION: 1. Single live intrauterine with calculated ultrasound age of ?? 9 weeks 2 days by crown r ump length. 2. Small subchorionic hemorrhage.
[2023-12-24] MEDS: MORPHINE SULFATE 2 MG/ML SYRINGE IVP ONE (21:01)
[2023-12-24 21:40] VITALS: BP 120/73; PULSE 992; TEMP 98.4
== END 2023-12-24 21:40 | disposition home or self-care (01) ==
LOC: EC 18:02
DX: O20.0 Threatened abortion (principal); O99.331 Smoking (tobacco) complicating pregnancy, first trimester; F17.290 Nicotine dependence, other tobacco product, uncomplicated; Z3A.10 10 weeks gestation of pregnancy
CPT/HCPCS: 36415; 86900; 86901; 80053; 85025; 81001; 84702; 76801; 99284; 96374; 96375; 96361 ×2; J2405; J2270

== ENCOUNTER 2024-05-13 10:59 | Emergency (ER) | payer OTHER ==
[2024-05-13 11:19] VITALS: TEMP 99.3
--- NOTE | 2024-05-13 11:54 | ED ---
Nausea/Vomiting/Diarrhea HPI - General Chief complaint: Nausea/Vomiting/Diarrhea Stated complaint: vomitting/chest pain/30wks preg Time Seen by Provider: 05/13/24 11:53 Source: patient, RN notes reviewed Mode of arrival: wheelchair Limitations: no limitations - History of Present Illness Initial comments: 33-year-old female at 30 weeks gestation presenting for vomiting x 3 days. Patient states she is unable to keep fluids down due to severe nausea. Denies fevers, abdominal pain, diarrhea, constipation, vaginal bleeding, pelvic cramps. She has not had this in so far. Denies cough, congestion, sore throat. - Related Data Home Medications Medication Instructions Recorded Confirmed Cariprazine HCl [Vraylar] 1.5 mg PO DAILY 06/19/23 07/15/23 Venlafaxine HCl ER [Effexor XR] 150 mg PO DAILY 06/19/23 07/15/23 Metoclopramide [Reglan] 5 mg PO DAILY PRN 07/01/23 07/15/23 Previous Rx's Medication Instructions Recorded Ondansetron Odt [Zofran Odt] 4 mg PO Q8HR PRN #10 tab 05/13/24 Allergies Allergy/AdvReac Type Severity Reaction Status Date / Time No Known Allergies Allergy Verified 05/13/24 11:19 Review of Systems ROS Statement: Those systems with pertinent positive or pertinent negative responses have been documented in the HPI. ROS Other: All systems not noted in ROS Statement are negative. 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, freq kidney infections History of Any Multi-Drug Resistant Organisms: None Reported Past Surgical History: No Surgical Hx Reported Past Anesthesia/Blood Transfusion Reactions: No Reported Reaction Past Psychological History: Anxiety Smoking Status: Vaper - Past Family History Father Family Medical History: No Reported History Mother Family Medical History: No Reported History General Exam Limitations: no limitations General appearance: alert, in no apparent distress Head exam: Present: atraumatic, normocephalic, normal inspection Eye exam: Present: normal appearance, PERRL, EOMI. Absent: scleral icterus, conjunctival injection, periorbital swelling ENT exam: Present: normal exam, mucous membranes moist Neck exam: Present: normal inspection. Absent: tenderness, meningismus, ly mphadenopathy Respiratory exam: Present: normal lung sounds bilaterally. Absent: respiratory distress, wheezes, rales, rhonchi, stridor Cardiovascular Exam: Present: regular rate, normal rhythm, normal heart sounds. Absent: systolic murmur, diastolic murmur, rubs, gallop, clicks GI/Abdominal exam: Present: soft, normal bowel sounds. Absent: distended, tenderness, guarding, rebound, rigid Neurological exam: Present: alert, oriented X3 Psychiatric exam: Present: normal affect, normal mood Skin exam: Present: warm, dry, intact, normal color. Absent: rash Course Vital Signs 05/13/24 05/13/24 11:16 16:18 Temperature 99.3 F Pulse Rate 104 H 107 H Respiratory 22 18 Rate Blood Pressure 122/81 150/88 O2 Sat by Pulse 100 98 Oximetry Medical Decision Making - Medical Decision Making Was pt. sent in by a medical professional or institution (, PA, CHEMISTRY PROFESSOR, urgent care, hospital, or fdc...) When possible be specific @ -No Did you speak to anyone other than the patient for history (EMS, parent, family, police, friend...)? What history was obtained from this source @ -No Did you review nursing and triage notes (agree or disagree)? Why? @ -I reviewed and agree with nursing and triage notes Were old charts reviewed (outside hosp., previous admission, EMS record, old EKG, old radiological studies, urgent care reports/EKG's, fdc records)? Report findings @ -No old charts were reviewed Differential Diagnosis (chest pain, altered mental status, abdominal pain women, abdominal pain men, vaginal bleeding, weakness, fever, dyspnea, syncope, headache, dizziness, GI bleed, back pain, seizure, CVA, palpatations, mental health, musculoskeletal)? @ -Differential Abdominal Pain Women: Gastroenteritis, hyperemesis gravidarum, appendicitis, Cholecystitis, diverticulosis, ischemic bowel, pancreatitis, hepatitis, UTI, gastroenteritis, AAA, incarcerated hernia, bowel obstruction, constipation, inflammatory bowel, hepatitis, peptic ulcer disease, splenic infarction, perforated viscus, vulvitis, ovarian torsion, PID, kidney stone, placenta abruption, this is not meant to be an all-inclusive list EKG interpreted by me (3pts min.). @ -None X-rays interpreted by me (1pt min.). @ -None done CT interpreted by me (1pt min.). @ -None done U/S interpreted by me (1pt. min.). @ -None What testing was considered but not performed or refused? (CT, X-rays, U/S, labs)? Why? @ -None What meds were considered but not given or refused? Why? @ -None Did you discuss the management of the patient with other professionals (professionals i.e. , PA, CHEMISTRY PROFESSOR, lab, RT, psych nurse, social research assistant, dope house operator helper, teacher, compliance review officer, telehealth case manager)? Give summary @ -No Was smoking cessation discussed for >3mins.? @ -No Was critical care preformed (if so, how long)? @ -No Were there social determinants of health that impacted care today? How? (Homelessness, low income, unemployed, alcoholism, drug addiction, transportatio n, low edu. Level, literacy, decrease access to med. care, long-term, rehab)? @ -No Was there de-escalation of care discussed even if they declined (Discuss DNR or withdrawal of care, Hospice)? DNR status @ -No What co-morbidities impacted this encounter? (DM, HTN, Smoking, COPD, CAD, Cancer, CVA, ARF, Chemo, Hep., AIDS, mental health diagnosis, sleep apnea, morbid obesity)? @ -None Was patient admitted / discharged? Hospital course, mention meds given and route, prescriptions, significant lab abnormalities, going to OR and other pertinent info. @ -Discharged. This is a 33-year-old female at 30 weeks gestation presenting with vomiting x 3 days. Denies abdominal pain, fever, vaginal bleeding. Heart rate is mildly tachycardic at 104 bpm, otherwise vitals within acceptable limits. Abdomen is soft and nontender. Patient is provided with IV fluids and antiemetics after discussion about risk versus benefits. OB nurse performed heart tones which were normal. Lab work including CBC, CMP, lactic acid, lipase remarkable for white blood cell count of 19, hemoglobin 9.6 comparable to baseline. Urinalysis reveals 4+ ketones and 1+ protein. Cepheid negative. Upon reevaluation, patient reports a significant improvement in symptoms and would like to be discharged. I believe this is reasonable as leukocytosis likely reactive due to constant vomiting. Patient discharged with antiemetics and strict return precautions discussed. Advised to follow-up with OB tomorrow for reevaluation. Patient is agreeable to this plan. Case was discussed with my ED attending Dr. Larson. Patient discharged in stable condition. Undiagnosed new problem with uncertain prognosis? @ -No Drug Therapy requiring intensive monitoring for toxicity (Heparin, Nitro, Insulin, Cardizem)? @ -No Were any procedures done? @ -No Diagnosis/symptom? @ -Gastroenteritis Acute, or Chronic, or Acute on Chronic? @ -Acute Uncomplicated (without systemic symptoms) or Complicated (systemic symptoms)? @ -Uncomplicated Side effects of treatment? @ -No Exacerbation, Progression, or Severe Exacerbation? @ -No Poses a threat to life or bodily function? How? (Chest pain, [place], [place], pneumonia, PE, COPD, DKA, ARF, appy, cholecystitis, CVA, Diverticulitis, Homicidal, Suicidal, threat to staff... and all critical care pts) @ -Unlikely at this time - Lab Data Result diagrams: 05/13/24 12:13 05/13/24 12:13 Lab Results 05/13/24 05/13/24 05/13/24 Range/Units 12:13 12:13 12:13 WBC 19.2 H (3.8-10.6) k/uL RBC 4.07 (3.80-5.40) m/uL Hgb 9.6 L (11.4-16.0) gm/dL Hct 30.6 L (34.0-46.0) % MCV 75.1 L (80.0-100.0) fL MCH 23.7 L (25.0-35.0) pg MCHC 31.5 (31.0-37.0) g/dL RDW 15.7 H (11.5-15.5) % Plt Count 493 H (150-450) k/uL MPV 8.1 Neutrophils % 88 % Lymphocytes % 8 % Monocytes % 3 % Eosinophils % 0 % Basophils % 0 % Neutrophils # 16.9 H (1.3-7.7) k/uL Lymphocytes # 1.5 (1.0-4.8) k/uL Monocytes # 0.6 (0-1.0) k/uL Eosinophils # 0.0 (0-0.7) k/uL Basophils # 0.0 (0-0.2) k/uL Hypochromasia Moderate Poikilocytosis Slight Microcytosis Slight Sodium 136 L (137-145) mmol/L Potassium 3.5 (3.5-5.1) mmol/L Chloride 103 (98-107) mmol/L Carbon Dioxide 20 L (22-30) mmol/L Anion Gap 13 mmol/L BUN 3 L (7-17) mg/dL Creatinine 0.47 L (0.52-1.04) mg/dL Est GFR (CKD-EPI)AfAm >90 (>60 ml/min/1.73 sqM) Est GFR (CKD-EPI)NonAf >90 (>60 ml/min/1.73 sqM) Glucose 94 (74-99) mg/dL Plasma Lactic Acid Carter 1.2 (0.7-2.0) mmol/L Calcium 8.8 (8.4-10.2) mg/dL Total Bilirubin 0.7 (0.2-1.3) mg/dL AST 35 (14-36) U/L ALT 29 (4-34) U/L Alkaline Phosphatase 175 H (38-126) U/L Total Protein 7.0 (6.3-8.2) g/dL Albumin 3.9 (3.5-5.0) g/dL Lipase 76 (23-300) U/L Urine Color Urine Appearance (Clear) Urine pH (5.0-8.0) Ur Specific [place] (1.001-1.035) Urine Protein (Negative) Urine Glucose (UA) (Negative) Urine Ketones (Negative) Urine Blood (Negative) Urine Nitrite (Negative) Urine Bilirubin (Negative) Urine Urobilinogen (<2.0) mg/dL Ur Leukocyte Esterase (Negative) Urine WBC (0-5) /hpf Ur Squamous Epith Cells (0-4) /hpf Urine Bacteria (None) /hpf Urine Mucus (None) /hpf Influenza Type A (PCR) (Not Detectd) Influenza Type B (PCR) (Not Detectd) RSV (PCR) (Not Detectd) SARS-CoV-2 (PCR) (Not Detectd) 05/13/24 05/13/24 Range/Units 12:13 14:35 WBC (3.8-10.6) k/uL RBC (3.80-5.40) m/uL Hgb (11.4-16.0) gm/dL Hct (34.0-46.0) % MCV (80.0-100.0) fL MCH (25.0-35.0) pg MCHC (31.0-37.0) g/dL RDW (11.5-15.5) % Plt Count (150-450) k/uL MPV Neutrophils % % Lymphocytes % % Monocytes % % Eosinophils % % Basophils % % Neutrophils # (1.3-7.7) k/uL Lymphocytes # (1.0-4.8) k/uL Monocytes # (0-1.0) k/uL Eosinophils # (0-0.7) k/uL Basophils # (0-0.2) k/uL Hypochromasia Poikilocytosis Microcytosis Sodium (137-145) mmol/L Potassium (3.5-5.1) mmol/L Chloride (98-107) mmol/L Carbon Dioxide (22-30) mmol/L Anion Gap mmol/L BUN (7-17) mg/dL Creatinine (0.52-1.04) mg/dL Est GFR (CKD-EPI)AfAm (>60 ml/min/1.73 sqM) Est GFR (CKD-EPI)NonAf (>60 ml/min/1.73 sqM) Glucose (74-99) mg/dL Plasma Lactic Acid Carter (0.7-2.0) mmol/L Calcium (8.4-10.2) mg/dL Total Bilirubin (0.2-1.3) mg/dL AST (14-36) U/L ALT (4-34) U/L Alkaline Phosphatase (38-126) U/L Total Protein (6.3-8.2) g/dL Albumin (3.5-5.0) g/dL Lipase (23-300) U/L Urine Color Yellow Urine Appearance Clear (Clear) Urine pH 6.0 (5.0-8.0) Ur Specific [place] 1.024 (1.001-1.035) Urine Protein 1+ H (Negative) Urine Glucose (UA) Negative (Negative) Urine Ketones 4+ H (Negative) Urine Blood Negative (Negative) Urine Nitrite Negative (Negative) Urine Bilirubin Negative (Negative) Urine Urobilinogen <2.0 (<2.0) mg/dL Ur Leukocyte Esterase Negative (Negative) Urine WBC 1 (0-5) /hpf Ur Squamous Epith Cells 9 H (0-4) /hpf Urine Bacteria Rare H (None) /hpf Urine Mucus Rare H (None) /hpf Influenza Type A (PCR) Not Detected (Not Detectd) Influenza Type B (PCR) Not Detected (Not Detectd) RSV (PCR) Not Detected (Not Detectd) SARS-CoV-2 (PCR) Not Detected (Not Detectd) Disposition Clinical Impression: Gastroenteritis Disposition: HOME SELF-CARE Condition: Stable Instructions (If sedation given, give patient instructions): Acute Nausea and Vomiting (ED) Additional Instructions: Take Zofran as needed for nausea. Follow-up with OB tomorrow. Please return to the Emergency Department if symptoms worsen or any other concerns. Is patient prescribed a controlled substance at d/c from ED?: No Referrals: Christoph Campbell MD [Primary Care Provider] - 1-2 days Time of Disposition: 15:53
[2024-05-13] MEDS: SODIUM CHLORIDE 0.9% 1,000 ML IV STA (12:10)
[2024-05-13] MEDS: ONDANSETRON 4 MG/2 ML VIAL IVP STA ×2 (12:14→15:25)
[2024-05-13] MEDS: FAMOTIDINE 20 MG/2 ML VIAL IV STA (12:14)
[2024-05-13] MEDS: PYRIDOXINE 100 MG/ML 1 ML VIAL IVP SCH (12:39)
[2024-05-13 12:47] LABS: Basophils % (A) 0 %; Eosinophils % (A) 0 %; HCT 30.6 % (34.0-46.0); HGB 9.6 gm/dL (11.4-16.0); Hypochromasia Moderate; Lymphocytes # (A) 1.5 k/uL (1.0-4.8); Lymphocytes % (A) 8 %; MCH 23.7 pg (25.0-35.0); MCHC 31.5 g/dL (31.0-37.0); MCV 75.1 fL (80.0-100.0); Mean Platelet Volume 8.1; Microcytosis Slight; Monocytes # (A) 0.6 k/uL (0-1.0); Monocytes % (A) 3 %; Neutrophils # (A) 16.9 k/uL (1.3-7.7); Neutrophils % (A) 88 %; Platelet Count 493 k/uL (150-450); Poikilocytosis Slight; RBC 4.07 m/uL (3.80-5.40); RDW 15.7 % (11.5-15.5); WBC 19.2 k/uL (3.8-10.6)
[2024-05-13 13:02] LABS: ALT 29 U/L (4-34); AST 35 U/L (14-36); African American GFR (CKD) >90 (>60 ml/min/1.73 sqM); Albumin 3.9 g/dL (3.5-5.0); Alkaline Phosphatase 175 U/L (38-126); Anion Gap 13 mmol/L; Blood Urea Nitrogen 3 mg/dL (7-17); Calcium 8.8 mg/dL (8.4-10.2); Carbon Dioxide 20 mmol/L (22-30); Chloride 103 mmol/L (98-107); Glucose 94 mg/dL (74-99); Lipase 76 U/L (23-300); Non-African American GFR(CKD) >90 (>60 ml/min/1.73 sqM); Potassium 3.5 mmol/L (3.5-5.1); Sodium 136 mmol/L (137-145); Total Bilirubin 0.7 mg/dL (0.2-1.3)
[2024-05-13 14:44] LABS: Appearance,Urine Clear (Clear); Bacteria,Urine Rare /hpf; Bilirubin,Urine Negative (Negative); Blood,Urine Negative (Negative); Color,Urine Yellow; Glucose,Urine (UA) Negative (Negative); Ketones,Urine 4+ (Negative); Leukocyte Esterase,Urine Negative (Negative); Mucus,Urine Rare /hpf; Nitrite,Urine Negative (Negative); Protein,Urine 1+ (Negative); Specific Gravity,Urine 1.024 (1.001-1.035); Squamous Epithelial Cell,Urine 9 /hpf (0-4); Urobilinogen,Urine <2.0 mg/dL (<2.0); WBC,Urine 1 /hpf (0-5)
[2024-05-13] MEDS ORDERED: METOCLOPRAMIDE 5 MG/ML 2 ML VIAL IVP STA (14:59)
[2024-05-13] MEDS: ONDANSETRON 4 MG ODT STARTER PACK 2 TAB BTL PO STA (16:02)
[2024-05-13 16:19] VITALS: BP 150/88; PULSE 107; RESP 18
== END 2024-05-13 16:19 | disposition home or self-care (01) ==
LOC: EC 10:59
DX: O99.613 Diseases of the digestive system complicating pregnancy, third trimester (principal); K52.9 Noninfective gastroenteritis and colitis, unspecified; O99.333 Smoking (tobacco) complicating pregnancy, third trimester; F17.290 Nicotine dependence, other tobacco product, uncomplicated; Z3A.30 30 weeks gestation of pregnancy
CPT/HCPCS: 99284; 96374; 96375 ×2; 96376; 96361 ×3; 36415; 80053; 83605; 83690; 85025; 81001; 87636; J3415; J2405; J3490; S0119

== ENCOUNTER 2024-05-14 09:06 | Observation (INO) | payer OTHER ==
[2024-05-14] MEDS: PANTOPRAZOLE 40 MG/10 ML VIAL IVP STA (09:46)
[2024-05-14] MEDS: ACETAMINOPHEN TAB 500 MG TAB PO STA (09:47)
[2024-05-14] MEDS: ONDANSETRON 4 MG/2 ML VIAL IVP STA ×2 (09:47→11:35)
[2024-05-14] MEDS: SODIUM CHLORIDE 0.9% 1,000 ML IV STA ×2 (09:48→12:04)
--- NOTE | 2024-05-14 10:01 | ED ---
General Adult HPI - General Chief complaint: Nausea/Vomiting/Diarrhea Stated complaint: vomiting blood,30wks preg Time Seen by Provider: 05/14/24 09:30 Source: patient, RN notes reviewed, old records reviewed Mode of arrival: ambulatory Limitations: no limitations - History of Present Illness Initial comments: Patient is a 33-year-old female, G5, P4 approximately 30 weeks who presents emergency department complaining of persistent nausea and vomiting for multiple days. Currently day 4 of nausea and vomiting. Noticed some blood-s treaked emesis overnight. States is not every time she throws up just occasionally. It is mostly when she tried to eat or drink and bile with some streaks of blood in it. States she is still throwing up despite being evaluated yesterday and is not tolerating oral intake. Is on oral Zofran at home. Follows up with an [facility]SULTANT out of [place]. Denies any other acute complaints other than occasional chest discomfort during the episodes of emesis. Denies any vaginal bleeding or discharge. Denies diarrhea or constipation. Presents today as she is concerned she is dehydrated and due to the blood that she saw streaked in her emesis. Patient is not on blood thinners.Patient does endorse having some abdominal discomfort near her bellybutton particular when she is having episodes of emesis but no other abdominal pain. - Related Data Home Medications Medication Instructions Recorded Confirmed Venlafaxine HCl [Effexor XR] 225 mg PO DAILY 05/14/24 05/14/24 Previous Rx's Medication Instructions Recorded Ondansetron Odt [Zofran Odt] 4 mg PO Q8HR PRN #10 tab 05/13/24 Allergies Allergy/AdvReac Type Severity Reaction Status Date / Time No Known Allergies Allergy Verified 05/14/24 11:43 Review of Systems ROS Statement: Those systems with pertinent positive or pertinent negative responses have been documented in the HPI. Review of Systems: CONST: Denies fever EYES: Denies blurry vision ENT: Denies nasal congestion C/V: Denies Chest pain RESP: Denies shortness of breath GI: Endorses abdominal discomfort, nausea, vomiting : Denies dysuria SKIN: Denies rash. MSK: Denies joint pain. NEURO: Denies headache ROS Other: All systems not noted in ROS Statement are negative. 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, freq kidney infections History of Any Multi-Drug Resistant Organisms: None Reported Past Surgical History: No Surgical Hx Reported Past Anesthesia/Blood Transfusion Reactions: No Reported Reaction Past Psychological History: Anxiety Smoking Status: Former smoker, Vaper Past Alcohol Use History: None Reported Past Drug Use History: None Reported - Past Family History Father Family Medical History: No Reported History Mother Family Medical History: No Reported History General Exam - General Exam Comments Initial Comments: General: Appears in no acute distress. HEAD: Normal with no signs of head trauma. EYES: PERRLA, EOMI, conjunctiva normal, no discharge. ENT: Hearing grossly intact, normal oropharynx. Dry mucous membranes. Dry mucous membranes. RESPIRATORY: Clear breath sounds bilaterally. No wheezes, rales, or rhonchi. C/V: Regular rate and rhythm. S1 and S2 auscultated, no edema, peripheral pulses 2+ and intact throughout ABD: Abdomen soft, nontender. Gravid uterus. No obvious peritoneal signs. No rebound tenderness. EXT: No obvious deformity SKIN: No rashes or lesions observed on exposed skin. NEURO: Alert and oriented x 4. Limitations: no limitations Course Vital Signs 05/14/24 05/14/24 05/14/24 09:08 12:15 13:14 Temperature 97.8 F Pulse Rate 95 99 101 H Respiratory 20 18 16 Rate Blood Pressure 144/85 156/95 153/96 O2 Sat by Pulse 100 98 98 Oximetry Medical Decision Making - Medical Decision Making Was pt. sent in by a medical professional or institution (, PA, [employer], urgent care, hospital, or long term...) When possible be specific @ -No Did you speak to anyone other than the patient for history (EMS, parent, family, police, friend...)? What history was obtained from this source @ -No Did you review nursing and triage notes (agree or disagree)? Why? @ -I reviewed and agree with nursing and triage notes Were old charts reviewed (outside hosp., previous admission, EMS record, old EKG, old radiological studies, urgent care reports/EKG's, long term records)? Report findings @ -Reviewed chart from recent visit yesterday when patient was discharged home. Labs at that time remarkable for dehydration. Patient had an elevated white blood cell count yesterday which is likely secondary to being reactive from the emesis. Responded to IV Zofran yesterday. Differential Diagnosis (chest pain, altered mental status, abdominal pain women, abdominal pain men, vaginal bleeding, weakness, fever, dyspnea, syncope, headache, dizziness, GI bleed, back pain, seizure, CVA, palpatations, mental health, musculoskeletal)? @ -Dehydration, gastritis, hematemesis, peptic ulcer disease, gastroenteritis. This list is not all inclusive. EKG interpreted by me (3pts min.). @ -As above X-rays interpreted by me (1pt min.). @ -Chest x-ray showed no obvious acute cardiopulmonary process. CT interpreted by me (1pt min.). @ -None done U/S interpreted by me (1pt. min.). @ -Ultrasound gallbladder unremarkable. Patient does have mild to moderate hydronephrosis likely secondary to her current . No hematuria. No suspicion for kidney stone at this time. What testing was considered but not performed or refused? (CT, X-rays, U/S, labs)? Why? @ -None What meds were considered but not given or refused? Why? @ -None Did you discuss the management of the patient with other professionals (professionals i.e. DrMg, PA, [employer], lab, RT, psych nurse, licensed clinical social worker, metrology engineer, teacher, chief medical officer, housing case manager)? Give summary @ -Discussed with Dr. Campbell who accepted the admission. Was smoking cessation discussed for >3mins.? @ -No Was critical care preformed (if so, how long)? @ -No Were there social determinants of health that impacted care today? How? (Homelessness, low income, unemployed, alcoholism, drug addiction, transportation, low edu. Level, literacy, decrease access to med. care, fdc, rehab)? @ -No Was there de-escalation of care discussed even if they declined (Discuss DNR or withdrawal of care, Hospice)? DNR status @ -No What co-morbidities impacted this encounter? (DM, HTN, Smoking, COPD, CAD, Cancer, CVA, ARF, Chemo, Hep., AIDS, mental health diagnosis, sleep apnea, morbid obesity)? @ -Currently 30 weeks . Was patient admitted / discharged? Hospital course, mention meds given and route, prescriptions, significant lab abnormalities, going to OR and other pertinent info. @ -Based on patient's presentation and physical exam, presents emergency department complaining of concern for hematemesis but mostly continued nausea and vomiting being 30 weeks . Was seen here yesterday with similar com plaints but went home and is still symptomatic. ODT Zofran is not helping with the nausea. Has noticed some blood-streaked emesis today and last night however had an episode of emesis here in the department and it was clear with no evidence of bleeding. Will continue to monitor this however patient will be to have abdominal labs obtained. Occasionally experiencing chest pain especially when she has episodes of emesis. Screening EKG will also be obtained. Patient was in agreement with this plan. She will be symptomatically treated with IV Protonix, Zofran, IV fluids, Tylenol. I did recommend a 1 view chest x-ray which patient was in agreement with it and consented to. Patient was in agreement this plan. EKG does show T wave inversions in the precordial leads with no prior EKG for comparison. T wave inversion also in lead III. The T wave inversions could be secondary to however due to the patient's intermittent chest discomfort with emesis,troponin was added to the workup. Troponin is undetectable. Laboratory studies remarkable for continued leukocytosis from yesterday at 20. Remainder the labs are relatively unchanged and unremarkable. Slight elevation in AST and ALT as well as alk phos. Ultrasound of gallbladder was obtained which was unremarkable. Patient does have possible mild hydronephrosis of the left right kidney which is likely secondary to her current . Urinalysis is a contaminated catch but does show 4+ ketones supporting dehydration. On reevaluation, patient is feeling improved however as this is a second visit for 2 days in a row, we will admit the patient for IV fluid hydration and continued management of her nausea. No subsequent episodes of hematemesis. We will trend the troponin. I spoke with Dr. Campbell who wanted cardiology consulted as well as [facility] consulted. [facility]ANCE CONS[facility]ANT did send down nursing to obtain heart tones which were within acceptable limits. Patient was in agreement this plan. Undiagnosed new problem with uncertain prognosis? @ -No Drug Therapy requiring intensive monitoring for toxicity (Heparin, Nitro, Insulin, Cardizem)? @ -No Were any procedures done? @ -No Diagnosis/symptom? @ -Intractable nausea and vomiting, , dehydration, chest pain Acute, or Chronic, or Acute on Chronic? @ -Acute Uncomplicated (without systemic symptoms) or Complicated (systemic symptoms)? @ -Complicated Side effects of treatment? @ -None Exacerbation, Progression, or Severe Exacerbation] @ -No Poses a threat to life or bodily function? @ -Yes - Lab Data Result diagrams: 05/14/24 09:54 05/14/24 09:54 Lab Results 05/14/24 05/14/24 05/14/24 Range/Units 09:54 09:54 09:54 WBC 20.1 H (3.8-10.6) k/uL RBC 4.26 (3.80-5.40) m/uL Hgb 10.2 L (11.4-16.0) gm/dL Hct 32.3 L (34.0-46.0) % MCV 75.8 L (80.0-100.0) fL MCH 23.8 L (25.0-35.0) pg MCHC 31.4 (31.0-37.0) g/dL RDW 16.1 H (11.5-15.5) % Plt Count 523 H (150-450) k/uL MPV 7.3 Neutrophils % 85 % Lymphocytes % 10 % Monocytes % 4 % Eosinophils % 0 % Basophils % 0 % Neutrophils # 17.1 H (1.3-7.7) k/uL Lymphocytes # 1.9 (1.0-4.8) k/uL Monocytes # 0.8 (0-1.0) k/uL Eosinophils # 0.1 (0-0.7) k/uL Basophils # 0.0 (0-0.2) k/uL Hypochromasia Moderate Poikilocytosis Slight Anisocytosis Slight Microcytosis Slight PT 10.4 (10.0-12.5) sec INR 0.9 (<1.2) APTT 23.4 (22.0-30.0) sec Sodium 132 L (137-145) mmol/L Potassium 3.5 (3.5-5.1) mmol/L Chloride 102 (98-107) mmol/L Carbon Dioxide 18 L (22-30) mmol/L Anion Gap 12 mmol/L BUN 3 L (7-17) mg/dL Creatinine 0.49 L (0.52-1.04) mg/dL Est GFR (CKD-EPI)AfAm >90 (>60 ml/min/1.73 sqM) Est GFR (CKD-EPI)NonAf >90 (>60 ml/min/1.73 sqM) Glucose 94 (74-99) mg/dL Calcium 9.1 (8.4-10.2) mg/dL Total Bilirubin 0.8 (0.2-1.3) mg/dL AST 43 H (14-36) U/L ALT 41 H (4-34) U/L Alkaline Phosphatase 193 H (38-126) U/L Troponin I (0.000-0.034) ng/mL Total Protein 7.1 (6.3-8.2) g/dL Albumin 4.0 (3.5-5.0) g/dL Amylase 58 (30-110) U/L Lipase 88 (23-300) U/L Influenza Type A (PCR) (Not Detectd) Influenza Type B (PCR) (Not Detectd) RSV (PCR) (Not Detectd) SARS-CoV-2 (PCR) (Not Detectd) Blood Type Blood Type Recheck Bld Type Recheck Status Antibody Screen Spec Expiration Date 05/14/24 05/14/24 05/14/24 Range/Units 09:54 09:54 09:54 WBC (3.8-10.6) k/uL RBC (3.80-5.40) m/uL Hgb (11.4-16.0) gm/dL Hct (34.0-46.0) % MCV (80.0-100.0) fL MCH (25.0-35.0) pg MCHC (31.0-37.0) g/dL RDW (11.5-15.5) % Plt Count (150-450) k/uL MPV Neutrophils % % Lymphocytes % % Monocytes % % Eosinophils % % Basophils % % Neutrophils # (1.3-7.7) k/uL Lymphocytes # (1.0-4.8) k/uL Monocytes # (0-1.0) k/uL Eosinophils # (0-0.7) k/uL Basophils # (0-0.2) k/uL Hypochromasia Poikilocytosis Anisocytosis Microcytosis PT (10.0-12.5) sec INR (<1.2) APTT (22.0-30.0) sec Sodium (137-145) mmol/L Potassium (3.5-5.1) mmol/L Chloride (98-107) mmol/L Carbon Dioxide (22-30) mmol/L Anion Gap mmol/L BUN (7-17) mg/dL Creatinine (0.52-1.04) mg/dL Est GFR (CKD-EPI)AfAm (>60 ml/min/1.73 sqM) Est GFR (CKD-EPI)NonAf (>60 ml/min/1.73 sqM) Glucose (74-99) mg/dL Calcium (8.4-10.2) mg/dL Total Bilirubin (0.2-1.3) mg/dL AST (14-36) U/L ALT (4-34) U/L Alkaline Phosphatase (38-126) U/L Troponin I <0.012 (0.000-0.034) ng/mL Total Protein (6.3-8.2) g/dL Albumin (3.5-5.0) g/dL Amylase (30-110) U/L Lipase (23-300) U/L Influenza Type A (PCR) Not Detected (Not Detectd) Influenza Type B (PCR) Not Detected (Not Detectd) RSV (PCR) Not Detected (Not Detectd) SARS-CoV-2 (PCR) Not Detected (Not Detectd) Blood Type O Positive Blood Type Recheck O Pos Bld Type Recheck Status No Antibody Screen NEGATIVE Spec Expiration Date 05/17/20242353 - EKG Data -: EKG Interpreted by Me EKG Comments: 12-lead Electrocardiogram Interpretation Note EKG was reviewed and interpreted by myself. 12-lead ECG performed at 0943 is interpreted by me as revealing normal sinus rhythm at a rate of 85 beats per minute. [place] is normal. RI interval is 118 ms, QRS duration is 115 ms, QTc is 470 ms.. Patient does have T wave inversions located and III as well as V2 and V3. Unknown chronicity for these. Could be secondary to current . R wave progression across the precordium was slightly delayed.. Disposition Clinical Impression: Intractable nausea and vomiting, Dehydration, , Chest pain Disposition: ADMITTED IP TO THIS [facility] Condition: Stable Time of Disposition: 11:55
[2024-05-14 10:16] LABS: Anisocytosis Slight; Basophils % (A) 0 %; Eosinophils # (A) 0.1 k/uL (0-0.7); Eosinophils % (A) 0 %; HCT 32.3 % (34.0-46.0); HGB 10.2 gm/dL (11.4-16.0); Hypochromasia Moderate; Lymphocytes # (A) 1.9 k/uL (1.0-4.8); Lymphocytes % (A) 10 %; MCH 23.8 pg (25.0-35.0); MCHC 31.4 g/dL (31.0-37.0); MCV 75.8 fL (80.0-100.0); Mean Platelet Volume 7.3; Microcytosis Slight; Monocytes # (A) 0.8 k/uL (0-1.0); Monocytes % (A) 4 %; Neutrophils # (A) 17.1 k/uL (1.3-7.7); Neutrophils % (A) 85 %; Platelet Count 523 k/uL (150-450); Poikilocytosis Slight; RBC 4.26 m/uL (3.80-5.40); RDW 16.1 % (11.5-15.5); WBC 20.1 k/uL (3.8-10.6)
[2024-05-14 10:35] LABS: INR 0.9 (<1.2); Partial Thromboplastin Time 23.4 sec (22.0-30.0); Prothrombin Time 10.4 sec (10.0-12.5)
[2024-05-14 10:36] LABS: ALT 41 U/L (4-34); AST 43 U/L (14-36); African American GFR (CKD) >90 (>60 ml/min/1.73 sqM); Alkaline Phosphatase 193 U/L (38-126); Amylase 58 U/L (30-110); Anion Gap 12 mmol/L; Blood Urea Nitrogen 3 mg/dL (7-17); Calcium 9.1 mg/dL (8.4-10.2); Carbon Dioxide 18 mmol/L (22-30); Chloride 102 mmol/L (98-107); Glucose 94 mg/dL (74-99); Lipase 88 U/L (23-300); Non-African American GFR(CKD) >90 (>60 ml/min/1.73 sqM); Potassium 3.5 mmol/L (3.5-5.1); Sodium 132 mmol/L (137-145); Total Bilirubin 0.8 mg/dL (0.2-1.3); Total Protein 7.1 g/dL (6.3-8.2)
--- NOTE | 2024-05-14 10:44 | XR ---
EXAMINATION TYPE: XR chest 1V portable DATE OF EXAM: 05/14/2024 10:33 AM COMPARISON: None. CLINICAL INDICATION: Female, 33 years old with history of upright. Eval for free air under diaphragm, TECHNIQUE: XR chest 1V portable view(s) obtained. Patient was carefully shielded. FINDINGS: The heart size is normal. The pulmonary vasculature is normal. The lungs are clear. No suspicious free air under the diaphragm is evident. IMPRESSION: 1. No acute pulmonary process. [facility], , 05/14/2024 10:42 AM
[2024-05-14] MEDS: DEXTROSE 5%-0.9% NACL 1,000 ML IV SCH (10:58)
--- NOTE | 2024-05-14 11:24 | US ---
EXAMINATION TYPE: US gallbladder DATE OF EXAM: 05/14/2024 COMPARISON: NONE CLINICAL INDICATION: Female, 33 years old with history of n/v. eval gallbladder; 30 weeks , N /V TECHNIQUE: Grayscale and color Doppler imaging of the right upper quadrant was performed. FINDINGS: EXAM MEASUREMENTS: Liver Length: 17.0 cm Gallbladder Wall: 0.3 cm CBD: 0.5 cm Right Kidney: 10.5 x 5.4 x 4.9 cm Pancreas: wnl Liver: wnl Gallbladder: wnl Evidence for sonographic Sanchez's sign: no CBD: wnl Right Kidney: Dilation of the collecting system seen. No calculus visualized. No masses. IMPRESSION: [id number] right hydronephrosis correlate for obstructive uropathy. [facility], , 05/14/2024 11:21 AM
[2024-05-14] MEDS ORDERED: NALOXONE 0.4 MG/ML 1 ML VIAL IV PRN (11:56)
[2024-05-14] MEDS: MAG HYDROX/AL HYDROX/SIMETH 30 ML, HYOSCYAMINE ELIXIR 10 ML, LIDOCAINE VISCOUS 2% 10 ML PO STA (12:01)
[2024-05-14 12:27] LABS: Appearance,Urine Cloudy (Clear); Bilirubin,Urine Negative (Negative); Blood,Urine Negative (Negative); Color,Urine Yellow; Glucose,Urine (UA) Negative (Negative); Ketones,Urine 4+ (Negative); Leukocyte Esterase,Urine Moderate (Negative); Mucus,Urine Rare /hpf; Nitrite,Urine Negative (Negative); Protein,Urine 1+ (Negative); Specific Gravity,Urine 1.023 (1.001-1.035); Squamous Epithelial Cell,Urine 17 /hpf (0-4); Urobilinogen,Urine <2.0 mg/dL (<2.0); WBC,Urine 3 /hpf (0-5)
[2024-05-14] MEDS: LACTATED RINGERS 1,000 ML BAG IV STA (17:36)
--- NOTE | 2024-05-14 17:47 | P.HPOB ---
History of Present Illness H&P Date: 05/14/24 Chief Complaint: IUP at 30 and 4, nausea and vomiting, dehydration This is a 33-year-old 5 para 4 at 30-4/7 weeks (EDC of July 20 based on last menstrual period consistent with 14-week ultrasound) that presents to [facility] emergency department with complaints of chest pain, nausea vomiting x 4 days inability to keep anything down. Patient is a known patient of Dr. Buchanan at [facility]. Pre Azeb record is obtained. 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 4 prior vaginal delivery Last diagnosis of gestational hypertension delivered at 37 weeks Past medical history Anxiety Stable with Effexor Social history Denies alcohol use denies tobacco abuse No known drug allergies Medication vitamin Baby aspirin Review of Systems Constitutional: Reports fatigue, Denies chills, Denies fever Ears, nose, mouth and throat: Denies headache Cardiovascular: Reports leg edema Respiratory: Denies dyspnea Gastrointestinal: Reports nausea, Reports vomiting Genitourinary: Reports 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, freq kidney infections History of Any Multi-Drug Resistant Organisms: None Reported Past Surgical History: No Surgical Hx Reported Past Anesthesia/Blood Transfusion Reactions: No Reported Reaction Past Psychological History: Anxiety Smoking Status: Former smoker, Vaper Past Alcohol Use History: None Reported Past Drug Use History: None Reported Additional Drug Use History / Comment(s): 3 cigs/day - Past Family History Father Family Medical History: No Reported History Mother Family Medical History: No Reported History Medications and Allergies Home Medications Medication Instructions Recorded Confirmed Type Ondansetron Odt [Zofran Odt] 4 mg PO Q8HR PRN #10 tab 05/13/24 05/14/24 Rx Venlafaxine HCl [Effexor XR] 225 mg PO DAILY 05/14/24 05/14/24 History Allergies Allergy/AdvReac Type Severity Reaction Status Date / Time No Known Allergies Allergy Verified 05/14/24 11:43 Exam Osteopathic Statement: *. No significant issues noted on an osteopathic structural exam other than those noted in the History and Physical/Consult. Vital Signs Temp Pulse Pulse Resp BP BP Pulse Ox 05/14/24 15:00 97.3 F L 88 16 140/77 100 05/14/24 13:14 101 H 16 153/96 98 05/14/24 12:15 99 18 156/95 98 05/14/24 09:08 97.8 F 95 20 144/85 100 Intake and Output 05/14/24 05/14/24 05/14/24 06:59 14:59 22:59 Other: Weight 71.668 kg 71.668 kg Targeted physical exam is performed to date General This is a well nourished well-developed female in acute distress, patient is not feeling well, she is noting a headache, increased nausea and vomiting. Breathing appears nonlabored, abdomen is gravid, heart tones are noted to be appropriate for gestational age no contractions are appreciated Results Result Diagrams: 05/14/24 09:54 05/14/24 09:54 Abnormal Lab Results - Last 24 Hours (Table) 05/14/24 05/14/24 05/14/24 Range/Units 09:54 09:54 12:05 WBC 20.1 H (3.8-10.6) k/uL Hgb 10.2 L (11.4-16.0) gm/dL Hct 32.3 L (34.0-46.0) % MCV 75.8 L (80.0-100.0) fL MCH 23.8 L (25.0-35.0) pg RDW 16.1 H (11.5-15.5) % Plt Count 523 H (150-450) k/uL Neutrophils # 17.1 H (1.3-7.7) k/uL Sodium 132 L (137-145) mmol/L Carbon Dioxide 18 L (22-30) mmol/L BUN 3 L (7-17) mg/dL Creatinine 0.49 L (0.52-1.04) mg/dL AST 43 H (14-36) U/L ALT 41 H (4-34) U/L Alkaline Phosphatase 193 H (38-126) U/L Urine Appearance Cloudy H (Clear) Urine Protein 1+ H (Negative) Urine Ketones 4+ H (Negative) Ur Leukocyte Esterase Moderate H (Negative) Ur Squamous Epith Cells 17 H (0-4) /hpf Urine Mucus Rare H (None) /hpf Assessment and Plan (1) 30 weeks gestation of Current Visit: Yes Status: Acute Code(s): Z3A.30 - 30 WEEKS GESTATION OF SNOMED Code(s): 34582308 (2) Leukocytosis Current Visit: Yes Status: Acute Code(s): D72.829 - ELEVATED WHITE BLOOD CELL COUNT, UNSPECIFIED SNOMED Code(s): 709186689 (3) Dehydration Current Visit: Yes Status: Acute Code(s): E86.0 - DEHYDRATION SNOMED Co de(s): 23207697 (4) Intractable nausea and vomiting Current Visit: Yes Status: Acute Code(s): R11.2 - NAUSEA WITH VOMITING, UNSPECIFIED SNOMED Code(s): 844094381 (5) Current Visit: Yes Status: Acute Code(s): Z34.90 - ENCNTR FOR SUPRVSN OF NORMAL , UNSP, UNSP TRIMESTER SNOMED Code(s): 13243502 (6) Back pain Current Visit: No Status: Acute Code(s): M54.9 - DORSALGIA, UNSPECIFIED SNOMED Code(s): 443077685 (7) Leukocytosis Current Visit: No Status: Acute Code(s): D72.829 - ELEVATED WHITE BLOOD CELL COUNT, UNSPECIFIED SNOMED Code(s): 988354544 (8) Vomiting Current Visit: No Status: Acute Code(s): R11.10 - VOMITING, UNSPECIFIED SNOMED Code(s): 937249725 Plan: 33-year-old 5 para 4-0-0-4 at 30-4/7 weeks, estimated due date of July 20 with the presented to clinic [facility] with intractable nausea and vomiting. Patient has been receiving routine care at [facility] with Dr. Buchanan. Patient has in addition noting an increase headache/migraine. Patient has received multiple courses of Zofran without relief of nausea or vomiting. Plan NST every shift records were obtained from Dr. Buchanan IV fluids LR at 125 Benadryl IV Phenergan suppository IV Ofirmev Will monitor blood pressures closely as she does have a history of gestational hypertension with her last I do suspect blood pressures are elevated secondary to increased nausea and vomiting and migraine symptoms Will plan to repeat preeclampsia labs in the morning
[2024-05-14] MEDS: ACETAMINOPHEN IV (For NPO) 1,000 MG in EMPTY BAG 1 BAG IVPB STA (17:56)
[2024-05-14] MEDS: diphenhydrAMINE 50 MG/ML 1 ML VIAL IVP PRN (18:12)
[2024-05-14] MEDS: PROMETHAZINE SUPPOSITORY 25 MG SUPP RECTAL PRN (18:39)
[2024-05-14] MEDS: PANTOPRAZOLE 40 MG/10 ML VIAL IV SCH (20:58)
[2024-05-15] MEDS: ACETAMINOPHEN TAB 325 MG TAB PO PRN (01:57)
--- NOTE | 2024-05-15 07:32 | P.PN ---
Progress Note - Text Progress Note Date: 05/15/24 Patient is feeling better this morning. She is tolerating ice chips this morning. She states her headache is slightly improved since last evening. Good movement is noted, she denies contractions Vital signs stable General No acute distress sitting comfortably in bed tolerating ice chips Abdomen gravid, nontender Assessment 30+ weeks of Intractable nausea and vomiting Headache Plan NST this morning Slight improvement in sx this morning, will continue current plan
[2024-05-15] MEDS: ONDANSETRON 4 MG/2 ML VIAL IVP PRN (07:49)
[2024-05-15 08:24] LABS: Anisocytosis Slight; Basophils % (A) 0 %; Eosinophils # (A) 0.1 k/uL (0-0.7); Eosinophils % (A) 1 %; HCT 27.8 % (34.0-46.0); HGB 8.8 gm/dL (11.4-16.0); Hypochromasia Moderate; Lymphocytes # (A) 1.7 k/uL (1.0-4.8); Lymphocytes % (A) 14 %; MCH 24.1 pg (25.0-35.0); MCHC 31.7 g/dL (31.0-37.0); MCV 76.1 fL (80.0-100.0); Mean Platelet Volume 7.5; Microcytosis Slight; Monocytes # (A) 0.5 k/uL (0-1.0); Monocytes % (A) 4 %; Neutrophils # (A) 9.3 k/uL (1.3-7.7); Neutrophils % (A) 79 %; Platelet Count 454 k/uL (150-450); Poikilocytosis Slight; RBC 3.65 m/uL (3.80-5.40); RDW 16.2 % (11.5-15.5); WBC 11.8 k/uL (3.8-10.6)
[2024-05-15 08:40] VITALS: RESP 18
[2024-05-15] MEDS: VENLAFAXINE HCL ER 75 MG CAP PO SCH (08:51)
[2024-05-15] MEDS ORDERED: PANTOPRAZOLE 40 MG/10 ML VIAL IV SCH (09:00)
--- NOTE | 2024-05-15 09:05 | P.CRDCN ---
History of Present Illness Consult date: 05/15/24 Reason for Consult (text): chest pain, t wave inversions History of present illness: This is a 33-year-old female with past medical history of depression. Patient has been hospitalized at 34 weeks gestation for intractable nausea and vomiting. This is her fifth child and she states she is never had any problems like this before. She denies any previous history of hypertension, preeclampsia, no diabetes, no hyperlipidemia. She smoked in the past and quit 2 years ago. Patient states that she had vomiting for 4 days and then developed severe chest pain. She states the pain was sharp and crampy. No shortness of breath, no palpitations, no lightheadedness or dizziness. She denies having chest pain at this time. She does not think that she has had a previous EKG in the office. We have been asked to evaluate patient for chest pain and for T wave inversion. Blood pressure 134/80, heart rate 92, pulse ox 100% on room air. EKG: Sinus rhythm with T wave inversions in V1 through V3 Chest x-ray: No acute process. Gallbladder ultrasound: Mild to moderate right hydronephrosis correlate for obstructive uropathy. Laboratory studies: WBC 11.8 initially 20.1, hemoglobin 8.8, platelet count 454. Troponins negative x 3. AST 43, ALT 41, alkaline phosphatase 193. Creatinine 0.49, potassium 3.5. Urinalysis 1+ protein, 4+ ketones. Influenza A, influenza B, RSV, COVID-19 not detected. Home cardiac medications: Review Of Systems: At the time of my exam: CONSTITUTIONAL: Denies fever or chills. HEENT: Denies blurred vision, vision changes, or eye pain. Denies hemoptysis CARDIOVASCULAR: Denies chest pain. Denies orthopnea. Denies PND. Denies palpitations RESPIRATORY: Denies shortness of breath. GASTROINTESTINAL: Denies abdominal pain. Denies nausea or vomiting. HEMATOLOGIC: Denies bleeding disorders. GENITOURINARY: Denies any blood in urine. SKIN: Denies puritis. Denies rash. Physical examination: Gen: This is a 33-year-old female in no acute distress VS: reviewed HEENT: Head is atraumatic, normocephalic. Pupils equal, round. Sclerae is anicteric. NECK: Supple. No JVD. LUNGS: Clear to auscultation. No wheezes or rhonchi. No intercostal retractions. HEART: Regular rate and rhythm. No murmur. ABDOMEN: Soft No tenderness. EXTREMITIES: No pedal edema. No calf tenderness. NEUROLOGICAL: Patient is awake, alert and oriented x3. Assessment: Chest pain most likely secondary to nausea and vomiting T wave inversions in V1 through V3, possibly normal variant Intractable nausea and vomiting 30 weeks gestation of Remote history of tobacco use Plan: No previous EKG is available on the [facility] system and no EKG available in Dr. Campbell's office for comparison Obtain 2-D echocardiogram and Doppler study to assess cardiac structure and function If echocardiogram is unremarkable, patient is cleared for discharge from cardiology perspective Thank you kindly for this consultation. Nurse practitioner note has been reviewed, I agree with documented findings and plan of care. Patient was seen and examined. 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, freq kidney infections History of Any Multi-Drug Resistant Organisms: None Reported Past Surgical History: No Surgical Hx Reported Past Anesthesia/Blood Transfusion Reactions: No Reported Reaction Past Psychological History: Anxiety Smoking Status: Former smoker, Vaper Past Alcohol Use History: None Reported Past Drug Use History: None Reported Additional Drug Use History / Comment(s): 3 cigs/day - Past Family History Father Family Medical History: No Reported History Mother Family Medical History: No Reported History Medications and Allergies Home Medications Medication Instructions Recorded Confirmed Type Ondansetron Odt [Zofran Odt] 4 mg PO Q8HR PRN #10 tab 05/13/24 05/14/24 Rx Venlafaxine HCl [Effexor XR] 225 mg PO DAILY 05/14/24 05/14/24 History Allergies Allergy/AdvReac Type Severity Reaction Status Date / Time No Known Allergies Allergy Verified 05/14/24 11:43 Physical Exam Vitals: Vital Signs Temp Pulse Pulse Resp BP BP Pulse Ox 05/15/24 08:39 97.0 F L 92 18 134/80 100 05/15/24 04:00 98.8 F 88 16 114/65 98 05/14/24 23:23 99.0 F 90 16 117/64 98 05/14/24 20:33 98.7 F 101 H 18 126/72 97 05/14/24 15:00 97.3 F L 88 16 140/77 100 05/14/24 13:14 101 H 16 153/96 98 05/14/24 12:15 99 18 156/95 98 05/14/24 09:08 97.8 F 95 20 144/85 100 Intake and Output 05/14/24 05/15/24 05/15/24 22:59 06:59 14:59 Other: # Voids 2 2 Weight 71.668 kg Results 05/15/24 07:38 05/14/24 09:54 Cardiac Enzymes 05/14/24 05/14/24 05/14/24 Range/Units 09:54 09:54 15:02 AST 43 H (14-36) U/L Troponin I <0.012 <0.012 (0.000-0.034) ng/mL 05/14/24 Range/Units 18:04 AST (14-36) U/L Troponin I <0.012 (0.000-0.034) ng/mL Coagulation 05/14/24 Range/Units 09:54 PT 10.4 (10.0-12.5) sec APTT 23.4 (22.0-30.0) sec CBC 05/14/24 05/15/24 Range/Units 09:54 07:38 WBC 20.1 H 11.8 H (3.8-10.6) k/uL RBC 4.26 3.65 L (3.80-5.40) m/uL Hgb 10.2 L 8.8 L (11.4-16.0) gm/dL Hct 32.3 L 27.8 L (34.0-46.0) % Plt Count 523 H 454 H (150-450) k/uL Comprehensive Metabolic Panel 05/14/24 Range/Units 09:54 Sodium 132 L (137-145) mmol/L Potassium 3.5 (3.5-5.1) mmol/L Chloride 102 (98-107) mmol/L Carbon Dioxide 18 L (22-30) mmol/L BUN 3 L (7-17) mg/dL Creatinine 0.49 L (0.52-1.04) mg/dL Glucose 94 (74-99) mg/dL Calcium 9.1 (8.4-10.2) mg/dL AST 43 H (14-36) U/L ALT 41 H (4-34) U/L Alkaline Phosphatase 193 H (38-126) U/L Total Protein 7.1 (6.3-8.2) g/dL Albumin 4.0 (3.5-5.0) g/dL Current Medications Generic Name Dose Route Start Last Admin Trade Name Freq PRN Reason Stop Dose Admin Acetaminophen 650 mg 05/14/24 11:56 05/15/24 01:57 Acetaminophen Tab 325 Mg Tab PO 650 mg Q6HR PRN Administration Mild Pain or Fever > 100.5 Diphenhydramine HCl 25 mg 05/14/24 17:47 05/15/24 01:58 Diphenhydramine 50 Mg/Ml 1 Ml Vial IVP 25 mg Q6HR PRN Administration Allergy Symptoms Naloxone HCl 0.2 mg 05/14/24 11:56 Naloxone 0.4 Mg/Ml 1 Ml Vial IV Q2M PRN Opioid Reversal Ondansetron HCl 4 mg 05/14/24 11:56 05/15/24 07:49 Ondansetron 4 Mg/2 Ml Vial IVP 4 mg Q8HR PRN Administration Nausea And Vomiting Pantoprazole Sodium 40 mg 05/14/24 21:00 05/15/24 07:48 Pantoprazole 40 Mg/10 Ml Vial IV 40 mg BID MARLENE Administration Promethazine HCl 25 mg 05/14/24 17:48 05/14/24 18:39 Promethazine Suppository 25 Mg Supp RECTAL 25 mg HS PRN Administration Nausea And Vomiting Venlafaxine HCl 225 mg 05/15/24 09:00 Venlafaxine Hcl Er 75 Mg Cap PO DAILY MARLENE Intake and Output 05/14/24 05/15/24 05/15/24 22:59 06:59 14:59 Other: # Voids 2 2 Weight 71.668 kg 05/15/24 07:38 05/14/24 09:54
[2024-05-15 09:23] LABS: ALT 57 U/L (4-34); AST 51 U/L (14-36); African American GFR (CKD) >90 (>60 ml/min/1.73 sqM); Albumin 3.1 g/dL (3.5-5.0); Alkaline Phosphatase 160 U/L (38-126); Anion Gap 9 mmol/L; Blood Urea Nitrogen <2 mg/dL (7-17); Carbon Dioxide 19 mmol/L (22-30); Chloride 106 mmol/L (98-107); Glucose 93 mg/dL (74-99); Non-African American GFR(CKD) >90 (>60 ml/min/1.73 sqM); Sodium 134 mmol/L (137-145); Total Bilirubin 0.7 mg/dL (0.2-1.3); Total Protein 5.9 g/dL (6.3-8.2)
[2024-05-15 11:37] VITALS: BP 137/87; PULSE 85; TEMP 97
[2024-05-15] MEDS ORDERED: ONDANSETRON ODT 4 MG TAB PO PRN (13:35)
[2024-05-15] MEDS: POTASSIUM CHLORIDE ER 20 MEQ TAB.ER PO SCH (14:42)
--- NOTE | 2024-05-15 19:11 | CA ---
Transthoracic Echo Report Name: Rain Moss Age: 33 Gender: F : 1990 Exam Date: 05/15/2024 14:24 Exam Location: [facility] Ht (in): 61 Wt (lb): 158 Ordering Physician: Nohelia Coffey Attending/Referring Phys: [id number], Erlinda [employer]ored [employer] Kellen Sandy, VAISHALI Procedure CPT: Indications: LVF Cardiac Hx: Technical Quality: Good Contrast 1: Total Dose (mL): Contrast 2: Total Dose (mL): MEASUREMENTS (Male / Female) Normal Values 2D ECHO LV Diastolic Diameter PLAX 4.6 cm 4.2 - 5.9 / 3.9 - 5.3 cm LV Systolic Diameter PLAX 3.0 cm IVS Diastolic Thickness 1.2 cm 0.6 - 1.0 / 0.6 - 0.9 cm LVPW Diastolic Thickness 1.2 cm 0.6 - 1.0 / 0.6 - 0.9 cm LV Relative Wall Thickness 0.5 RV Internal Dim ED PLAX 3.1 cm LA Systolic Diameter LX 3.3 cm 3.0 - 4.0 / 2.7 - 3.8 cm LV Diastolic Volume MOD 4C 120.2 cm??? LV Systolic Volume MOD 4C 57.4 cm??? LV Ejection Fraction MOD 4C 52.3 % LV Cardiac Index MOD 4C 2995.5 cm???/min???m??? LV Diastolic Length 4C 8.4 cm LV Systolic Length 4C 6.7 cm LV Diastolic Volume MOD 2C 73.1 cm??? LV Systolic Volume MOD 2C 32.1 cm??? LV Ejection Fraction MOD 2C 56.1 % LV Cardiac Index MOD 2C 1955.3 cm???/min???m??? LV Diastolic Length 2C 8.3 cm LV Systolic Length 2C 6.8 cm M-MODE Aortic Root Diameter MM 3.3 cm LA Systolic Diameter MM 2.5 cm LA Ao Ratio MM 0.7 DOPPLER AV Peak Velocity 132.7 cm/s AV Peak Gradient 7.0 mmHg Mitral E Point Velocity 104.3 cm/s Mitral A Point Velocity 78.2 cm/s Mitral E to A Ratio 1.3 MV Deceleration Time 162.4 ms MV E' Velocity 9.7 cm/s Mitral E to MV E' Ratio 10.7 TR Peak Velocity 238.7 cm/s TR Peak Gradient 22.8 mmHg Right Ventricular Systolic Press 32.8 mmHg FINDINGS Left Ventricle Left ventricular ejection fraction is estimated at 55-60 %. Left ventricular cavity size normal. Mildly increased septal wall thickness. Mildly increased posterior wall thickness. Normal left ventricular wall motion. Right Ventricle Normal right ventricular size and function. Right ventricular systolic pressure within normal limits. Right Atrium Normal right atrial size. No right atrial thrombus or mass seen. Left Atrium Normal left atrial size. No left atrial thrombus or mass present. Mitral Valve Structurally normal mitral valve. No mitral stenosis, regurgitation or prolapse. Aortic Valve Trileaflet aortic valve. No aortic valve stenosis or regurgitation. Tricuspid Valve Structurally normal tricuspid valve. Trace to mild tricuspid regurgitation. Pulmonic Valve Structurally normal pulmonic valve. No pulmonic regurgitation. Pericardium No pericardial or pleural effusion. Aorta Normal size aortic root and proximal ascending aorta. CONCLUSIONS Normal biventricular systolic function Normal pulmonary artery systolic pressure The aortic valve was poorly seen. Possible bicuspid aortic valve but the valve seems to be functioning normally No pericardial effusion Normal ascending aorta Previewed by: Dr. William Galeas MD (Electronically Signed) Final Date: 15 May 2024 19:11
--- NOTE | 2024-05-16 03:39 | HP ---
HISTORY AND PHYSICAL CHIEF COMPLAINT: Nausea and vomiting for 4 days with chest pain and IUP. HISTORY OF PRESENT ILLNESS: This is another admission for this 33-year-old female who is 30 weeks . She started to have nausea and vomiting over the past 4 days. She had no fever or chills. She had no diarrhea. She did feel somewhat achy and had a headache. This probably was viral. She has had no problems with the . She came to the emergency room where she was admitted. In the emergency room, urine was negative. She did have elevated white count of 20,000, and there was a question deborah of possible right hydroureter. REVIEW OF SYSTEMS: Otherwise normal. She has had no hematemesis, melena, hematochezia, urinary complaints, vaginal bleeding or discharge, etc. Past medical history, family history, personal social history, reveal that she has had some problems with GERD. When she was last seen during the summer, she was on venlafaxine and apparently still is. She also was on Vraylar and Valium at that time. Remainder of her history is unremarkable. PHYSICAL EXAM: VITAL SIGNS: She is effort afebrile. HEAD, EARS, EYES, NOSE, MOUTH, AND THROAT: Normal. NECK: Supple. CHEST: Clear. CARDIAC: Normal. ABDOMEN: Slightly distended with her , and she is not tender. Bowel sounds are present. EXTREMITIES: Normal. ASSESSMENT: She is admitted to the hospital with diagnoses of: 1. Intractable nausea and vomiting. 2. Viral gastroenteritis. 3. Intrauterine . 4. Leukocytosis. PLAN: 1. Bedrest. 2. IV fluids. 3. Antiemetics. 4. OB consult. MMODL / IJN: [id number] /
[2024-05-16] MEDS ORDERED: VENLAFAXINE HCL 225 MG PO SCH (09:00)
--- NOTE | 2024-05-16 09:57 | PN ---
PROGRESS NOTE DATE OF SERVICE: 05/15/2024 CHIEF COMPLAINT: Intractable nausea and vomiting. HISTORY OF PRESENT ILLNESS: This lady is doing well. Nausea is improving and she is eating. It is noted that her hemoglobin is 8 and her potassium is only 3. PHYSICAL EXAMINATION: CHEST: Clear. CARDIAC: Normal. ABDOMEN: Soft, nontender. IMPRESSION: 1. Intractable nausea and vomiting and probably related to a virus. 2. Anemia. 3. Hypokalemia. 4. Intrauterine . 5. Esophagitis. PLAN: 1. Increase activity and diet. 2. Replace potassium. She may sign out AMA. MMODL / IJN: [id number] /
--- NOTE | 2024-05-16 10:00 | PN ---
PROGRESS NOTE DATE OF SERVICE: 05/15/2024 ADDENDUM: She may sign out AMA, although she was instructed that she should stay until her potassium is normal. MMODL / IJN: [id number] /
== END 2024-05-15 14:45 | disposition left against medical advice (07) ==
LOC: EC 09:06 → 4FBP 11:56
PROVIDERS: ADMIT Family Medicine; ATTEND Family Medicine
DX: O99.283 Endocrine, nutritional and metabolic diseases complicating pregnancy, third trimester (principal); E86.0 Dehydration; O98.513 Other viral diseases complicating pregnancy, third trimester; A08.4 Viral intestinal infection, unspecified; R07.9 Chest pain, unspecified; O99.013 Anemia complicating pregnancy, third trimester; D64.9 Anemia, unspecified; O99.113 Other diseases of the blood and blood-forming organs and certain disorders involving the immune mechanism complicating pregnancy, third trimester; D72.829 Elevated white blood cell count, unspecified; E87.6 Hypokalemia; O99.613 Diseases of the digestive system complicating pregnancy, third trimester; K20.90 Esophagitis, unspecified without bleeding; M54.9 Dorsalgia, unspecified; Z3A.30 30 weeks gestation of pregnancy; Z86.79 Personal history of other diseases of the circulatory system; Z79.899 Other long term (current) drug therapy; Z53.29 Procedure and treatment not carried out because of patient's decision for other reasons; Z87.891 Personal history of nicotine dependence
CPT/HCPCS: 96376 ×3; 96361 ×3; 96375 ×2; 96374; 99285; 36415; 93005; 93306; 86900; 86901; 80053 ×2; 82150; 83690; 84550; 84484; 85025 ×2; 85610; 85730; 86850; 81001; 87636; 71045; 76705; G0378 ×2; J1200 ×2; J2405 ×2; J0131; J2470 ×2